=== PATIENT | female | born 1980 | race Caucasian/White ===

== ENCOUNTER 2022-06-26 13:58 | Outpatient (CLI) | payer BC, SELFPAY ==
[2022-06-26 22:28] LABS: Chloride* 100 mmol/L (96-114); Potassium* 4.7 mmol/L (3.6-5.1); Sodium* 134 mmol/L (135-149)
[2022-06-26 22:30] LABS: Creatinine Urine 15.6 mg/dL
[2022-06-26 22:31] LABS: Blood Urea Nitrogen* 9 mg/dL (5-24); Carbon Dioxide* 24 mmol/L (20-32); Cholesterol* 295 mg/dL (90-199); Creatinine* 0.5 mg/dL (0.5-1.5); Estimated Glomerular Filt Rate 122 ml/min; Glucose* 125 mg/dL (60-115); Triglycerides* 197 mg/dL (40-149)
[2022-06-26 22:32] LABS: Calcium* 9.8 mg/dL (8.4-10.6); HDL Cholesterol* 52 mg/dL (>=50); LDL Cholesterol Calculated 204 mg/dL (<100)
[2022-06-26 22:33] LABS: Microalbumin Creatinine Ratio 60 mg/g (0-30); Microalbumin Urine < 1 mg/dL
== END 2022-06-26 13:59 | disposition home or self-care (01) ==
PROVIDERS: PCP Physician Assistant Medical; Visit Provider Physician Assistant Medical
DX: E11.9 Type 2 diabetes mellitus without complications (principal); N18.1 Chronic kidney disease, stage 1; Z13.6 Encounter for screening for cardiovascular disorders; Z13.29 Encounter for screening for other suspected endocrine disorder
CPT/HCPCS: 80048; 80061; 82043; 82570; 84443

== ENCOUNTER 2022-10-06 13:26 | Emergency (ER) | payer BC, SELFPAY ==
[2022-10-06 13:36] VITALS: BP 138/78; PULSE 90; RESP 18; TEMP 36.7; O2SAT 100; BMI 32.0
== END 2022-10-06 16:17 | disposition left against medical advice (07) ==
LOC: ED 16:14
PROVIDERS: PCP Physician Assistant Medical
DX: Z53.21 Procedure and treatment not carried out due to patient leaving prior to being seen by health care provider (principal)

== ENCOUNTER 2022-10-27 12:03 | Outpatient (CLI) | payer BC, SELFPAY | END 2022-10-27 12:04 | disposition home or self-care (01) | PROVIDERS: PCP Physician Assistant Medical; Visit Provider Physician Assistant Medical | DX: E78.5 Hyperlipidemia, unspecified (principal); E11.9 Type 2 diabetes mellitus without complications; N18.1 Chronic kidney disease, stage 1 | CPT/HCPCS: 82043; 82570; 82607; 82728 ==

== ENCOUNTER 2023-03-26 15:31 | Outpatient (CLI) | payer BC, SELFPAY | END 2023-03-26 15:32 | disposition home or self-care (01) | LOC: LKVREF 15:32 | PROVIDERS: PCP Physician Assistant Medical; Visit Provider Physician Assistant Medical | DX: E11.9 Type 2 diabetes mellitus without complications (principal); N18.1 Chronic kidney disease, stage 1 | CPT/HCPCS: 82043; 82570 ==

== ENCOUNTER 2023-04-21 15:30 | Outpatient (RCR) | payer OTHER, BC, SELFPAY ==
--- NOTE | 2022-10-21 12:44 | PT.OPE ---
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 All I know is I stepped out of my work vehicle and then I was on my back and my head the step on the vehicle was on the back of her head/neck. Pt is not sure if she loss consciousness. Pt had very little symptoms initially. Within 30 minutes she started having light sensitivity, dizziness, head pressure/pain on R, and she also reports that she grabbed a snack from a gas station and this made her extremely nauseous. Pain in her neck and shoulders gradually progressed and made her feel sick to her stomach. Pt notes that sunlight seems to bother her more than artificial lights. Pt is still having light sensitivity. Pt feels like her symptoms are getting worse. She has severe ADD/ADHD and it is hard for her to sit still. Has 3 kids at home. I am doing things that I'm not supposed to be doing ( cooking, cleaning). Pt also complains of memory issues since her injury and reports that her family members have been noticing this and are concerned. 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 - [employer] Preferred Name Concepción Precautions Therapy Limitations/Systems Review Not Limited Objective Other/Pertinent Objective Cervical ROM Extension - 44 *nausea, pain at front of R cervical spine Flexion - 36 *pain at base of skull, neck, sensation of nausea R/L Side Bend - 34/44 R/L Rotation - 77/65 R Shoulder ROM Flexion/Abduction/IR/ER - 170/ 170/T8/70 L Shoulder ROM Flexion/Abduction/IR/ER - 170/ 170/T6/70 Cervical Strength Extension - 5/5 MMT Flexion - 4/5 MMT * compensations noted R/L Side Bend - 5/5 MMT R/L Rotation - DNT Palpation: pt reports tenderness/pain with palpation to R>L suboccipitals, cervical paraspinals, scalenes , SCM, UT, and L>R levator; significant spasms noted in B SCM Posture: forward head, rounded shoulders, increased thoracic kyphosis in sitting Smooth pursuits, gaze stabilization: negative; pt does report increase in head pressure during Convergence: L eye drifts laterally approx 10cm from tip of nose. Assessment Assessment/Impression Pt is a 42 year old female who presents to OP PT clinic with complaints of neck and head pain following a fall while working. 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 She reports that on 10/06/22 ( approx 8:00am) she slipped and fell while getting out of her delivery vehicle. Is not sure if she hit her head or lost consciousness but reports that when she came to her head was resting on the step of her vehicle below the airport shuttle driver's side door. Pt had symptoms onset of dizziness, head and neck pain approx 30 minutes after the fall. She was able to be seen at ED in [place] around noon the same day. Imaging of the brain was completed and results were negative for structural damage . Pt has since had fluctuation in her symptoms with overall worsening of symptoms since the day of her injury. She continues to have sensitivity to light (natural seems to be worse than artificial), headaches, neck and upper back pain. She does have occasional dizziness but this does not seem to be too bothersome to her. Testing reveals deficits in her cervical ROM and strength. She also presents with spasms and muscle tension in the cervical spine that is consistent with whiplash injuries. Today we discussed the importance of activity modification (primarily reduction) as well as proper sleep hygiene including use of pillows and sleep volume. The nature of the pts condition was explained and all questions were answered to the pts satisfaction. Skilled PT services are medically necessary to address deficits and return patient to highest level of function. Recommend physical therapy sessions 2/ week for 12 weeks. Pt agrees with this plan. Printout of HEP was given for I completion and pt gives verbal understanding of each exercise . Primary Functional Limitations Lifting, reaching, cognitive tasks Plan of Care Rehabilitation Potential Good Physical Therapy Goals STG - To be completed in 2-3 weeks: 1. Pt will demonstrate improved cervical strength to 5/5 MMT in all directions to provide greater support to cervical spine and head. 2. Pt will report reduction in neck pain by factor of 2 so that they may roll over in bed without waking due to pain. 3. Pt will report reduction in headache intensity by factor of 2 so that they may remain functional at home when headaches do occur. LTG - To be completed in 8 weeks: 1. Pt to be I with HEP so that they may I manage progression of symptoms. 2. Pt will demo full and pain free cervical rotation ROM and lateral flexion ROM so that they may look over shoulder while driving to watch for traffic while working. 3. Pt will report absence of neck pain with all activities so that they may return to participating in recreational activities with their friends and family. 4. Pt will report absence of headache for 7 consecutive days so that she may work with mental clarity. 5. Pt will report ability to sleep throughout the night without waking due to pain so that they may wake well rested with reduced mental fatigue during working hours. Treatment Plan/Direct Interventions Electrical Stimulation,Heat, Ice/Cold/Vasopneumatic,Joint Mobilization,Manual Therapy, Neuromuscular Re-ed,Self-Care/ Home Management,Therapeutic Activities,Therapeutic Exercises Frequency/Duration 2/week for 8 weeks Patient Will Be Discharged From Therapy Completion of LTG(s),Skills Plateau,Independent w/HEP, Independently Progressing Evaluation Billing Untimed Code Treatment Minutes 40 PT Eval No Charge No Complexity Low Certification Information Initial Certification Date 10/21/22 Ending Certification Date 12/26/22 Provider Signature Shows Agreement With POC & Medical Necessity Physician Signature & Date Requested Please Sign/Date Here Physician Comment/Change : Physician NPI Number #
== END 2023-08-19 23:59 | disposition home or self-care (01) ==
PROVIDERS: PCP Physician Assistant Medical; Visit Provider Physician Assistant Medical
DX: F07.81 Postconcussional syndrome (principal); M54.2 Cervicalgia; M54.9 Dorsalgia, unspecified; G44.86 Cervicogenic headache; M62.838 Other muscle spasm; Z51.89 Encounter for other specified aftercare
CPT/HCPCS: 97032; 97110; 97112; 97140; 97161; 97530

== ENCOUNTER 2023-07-06 09:24 | Outpatient (CLI) | payer BC, SELFPAY | END 2023-07-06 09:25 | disposition home or self-care (01) | PROVIDERS: PCP Physician Assistant Medical; Visit Provider Physician Assistant Medical | DX: E78.2 Mixed hyperlipidemia (principal); E11.9 Type 2 diabetes mellitus without complications | CPT/HCPCS: 80061; 82607 ==

== ENCOUNTER 2023-07-06 13:15 | Outpatient (RCR) | payer OTHER, BC, SELFPAY ==
--- NOTE | 2023-06-05 18:34 | OT.OPGNE ---
OT Outpatient General/Neuro Eval OT Outpatient General/Neuro Eval Start: 06/05/23 17:17 Freq: Status: Active Protocol: Document 06/05/23 17:17 LCN (Rec: 06/05/23 18:15 LCN [id number]) E-signed By Hilary Solomon, OTR/L, CLT OT Outpatient Evaluation Details Type Type Eval Complexity Low Insurance Information Insurance Information Insurance Information Workman's Comp Insurance Information Comments [facility] Letitia Ruiz MD-- Adarsh Angel, of [facility] PCP Carmen Johnson Outpatient History/Precautions Medical/Functional History Medical History Reviewed Yes: limited to PT, Alex notes Prior Level of Function/Mobility Concepción is used to being being very energetic, hopping quickly between home repair, cooking and running her family household at a large level. Since her fall while on her [employer] work truck, she has been limited to 15-20 minutes of cooking tasks, walking outdoors for 30 minutes at a time and is not able to work yet. 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 Starting taking Amitriptyline recently per Neuroscience to help with sleep, but it actually is making her head pressure and falling asleep sx worse. Sleeps intermittently some times taking until 3am to fall asleep, after laying down at 10 pm. Sleeping in until 10- 11 am and is waking up feeling very agitated. Prior Medical History Prior Medical History Has seen physical therapy Gerardo Kenney with great help at our [place] location ( help her get started with some vision/balance exercises, balance and tolerating positional changes, managing headaches, cervical pressure and lumbar pain, is on hold after 20 visits as of 04/21/23. Pt started her healing journey with seeing Neuro- ophthalmology at [facility] in [place] to get going with prism glasses, light filter glasses and readers. Then started with [facility] 10/21/22. Also working closely with Neuroscience clinic in [place] and returns there in mid June. Was recently told she should b not be driving as she is having continued visual disturbances/ convergence insuffiency, VOR stabilizing issues when bending and is hoping to have OT pre-driving screeening completed to help with return to driving. 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 The symptoms initially were not that bad, but in 30 minutes later started having photophobia, dizziness, R sided head pressure/pain and nausea. She has worked hard to increase her walking outside with her dog, which does help her feel more clear. 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 She is needing family help for doing laundry ( bending to reaching has vertigo issues, nausea) and cognitive tasks like paying bills will increase her head pressure. She is doing her grocery shopping online with delivery; 20 yr old daughter is helping with paying all bills, interpreting mail. Pt relies on her QRC to take notes inside of detailed medical visits for her. Pt can not handle answering series of questions rapidly and will lose her word/concept finding to answer cohesively, then gets agitated and anxious. and shuts down. She tried to make tamales with family group and it took her 3 days to recover, similar experience after a family wedding at the [employer] one month ago. It feels like any large family task she tries sets her back worse and she is very discouraged. Feels most help from walking her dog, cooking with family and listening to music. Pain Assessment Pain R subiccital , temporal pressure, Pain Description Tightness,Pressure,Throbbing, Pinching,Pulling,With Movement Pain Description Other intractible Balance Assessment Comments Balance Comments On Post Concussion Brain Symptom Scale (where 22 symptom areas, 132 is maximal score, where zero is high QOL) -- Today, Concepción scores 85/132 with 20/22 symptoms.?6/6 head pressure.?4/6 with falling asleep, staying asleep, 6/6 with light, 5/6 vision blurring problems and 2/6 sound sensitivity.?4/6 difficulty concentrating, remembering, fatigue, drowsiness and irritability.? ? Home Maintenance Assessment Home Management Meal Preparation Ability Moderate Assistance Cleaning Ability Moderate Assistance Shopping Ability Moderate Assistance Vision/Hearing Vision Tracking WNL Saccades BNL Near Point of Convergence BNL Vision Changes Light Sensitivity,Diplopia Vision Changes Comments Pt using her prism glasses, light filter glasses ( smoke/ blue, for outdoors) and reading magnifiers per [facility]. Does not have light filter glasses for managing computer glare or night lighting changes while driving /being a passenger. (issued resources to get these glasses and Loop ear plugs at low cost via [employer]. OTR recommends pt to use Loop ear plugs for cancelling highest and lowest portion of sound to tolerate busy environments better) Hearing Hearing Phonophobia/Hearing Hypersensitivity Cognitive Assessments Performed Comments Cognitive Assessments Performed Comments MOCA and pre-driving screening w visual scanning, timed problem solving and other tasks to be performed to support pt's safe return to driving. Assessment Assessment Assessment With Concepción's high level of symptoms related to her concussion ( light/sound sensitivity, difficulty with fatigue/pacing, increased processing time needed for problem solving/sequencing, difficulty w tolerating reading, busy environments and cognitive tasks that will increase her head pressure symptoms, Concepción in an excellent candidate for skilled OT to address these areas. Occupational Therapy Treatment Plan - OP Potential Rehabilitation Potential Excellent Set Goals Goals Set with Patient Yes Goals Goals In 12 weeks, Concepción will demonstrate-- 1) effective use of 3-5 adaptive strategies, tools, self management strategies and environmental modifications to manage post concussion with improved mental fog, sensory and cognitive processing. ? 2) improved activity tolerance for reading, grocery shopping to 45 minutes with head pressure sx < 3/10 for and post task recovery?to 30-45 minutes. ? 3)decreased mental effort to 2 /10 with screening of MOCA/ SDMT and with moderately complex money management and multi step cooking tasks for 30-45 minutes at time, with head pressure sx below 3/6, with recovery time at 30-45 minutes. Target Date 09/04/23 Progress set Treatment Plan Treatment Plan Evaluation,Manual Therapy, Therapeutic Exercise, Therapeutic Activities,Self- Care/Home Management,Education Expected Frequency 1x Week Expected Duration 12 weeks Expected Duration Comments Scheduling 1x/week x 8weeks to start, but requesting 12 visits. Certification Certification I Certify That: Therapy Services Provided, Therapy Plan Established, Therapy Plan Reviewed
== END 2023-11-03 23:59 | disposition home or self-care (01) ==
PROVIDERS: PCP Physician Assistant Medical
DX: S06.9XAD Unspecified intracranial injury with loss of consciousness status unknown, subsequent encounter (principal); Z51.89 Encounter for other specified aftercare
CPT/HCPCS: 97165; 97530; 97535

== ENCOUNTER 2023-07-30 17:18 | Emergency (ER) | payer BC, SELFPAY ==
[2023-07-30] VITALS (11 sets, daily range): BP systolic 102–116; BP diastolic 66–90; PULSE 79–121; RESP 16; TEMP 36.8; O2SAT 92–99; BMI 33.1
--- NOTE | 2023-07-30 17:51 | CRLHL7_ITS ---
For Patients: As a result of the Cures Act, medical imaging exams and procedure reports are released immediately into your electronic medical record. You may view this report before your referring provider. If you have questions, please contact your health care provider. INDICATION: Chest pressure TECHNIQUE: Chest radiograph 2 views COMPARISON: 12/30/2020 FINDINGS: The sensitivity and specificity of the exam are moderately limited by the patient`s body habitus. Mediastinum: The mediastinum is normal in appearance. The heart silhouette is normal in size and morphology. Lung: Both lungs are unremarkable in appearance. No sign of pleural effusion seen. No pneumothorax is identified. Bone and Soft tissue: Unremarkable for age. IMPRESSION: 1. No acute cardiopulmonary disease is seen. Dictated by: Eddie Reyes MD @ 07/30/2023 18:20:59 (Electronically Signed)
--- NOTE | 2023-07-30 17:54 | CRLHL7_ITS ---
For Patients: As a result of the Century Cures Act, medical imaging exams and procedure reports are released immediately into your electronic medical record. You may view this report before your referring provider. If you have questions, please contact your health care provider. INDICATION: Right upper quadrant pain. COMPARISON: CT of the abdomen pelvis 05/17/2020. TECHNIQUE: Real time chaudhry scale imaging and color Doppler analysis was performed of the right upper quadrant. FINDINGS: Liver: The liver is normal in size measuring 14.5 cm in length. Normal echogenicity. No focal liver lesions identified. Gallbladder: No stones or sludge. No wall thickening or pericholecystic fluid. Negative sonographic Denis sign. Bile ducts: The common bile duct measures 4 mm in diameter. Pancreas: Visualized portions are unremarkable. Right kidney: The right kidney measures 11.0 cm in length. No hydronephrosis. Vascular: Normal caliber proximal abdominal aorta. The main portal vein appears patent. IMPRESSION: Unremarkable exam. Dictated by Juliana Conde MD @ 07/30/2023 6:35:43 PM (Electronically Signed)
[2023-07-30 18:07] LABS: Appearance Urine Clear (Clear); Bilirubin Urine Negative (Negative); Blood Urine Trace-lysed (Negative); Color Urine Yellow (Yellow); Glucose Urine Negative (Negative); Ketones Urine Negative (Negative); Leukocyte Esterase Urine Negative (Negative); Nitrite Urine Negative (Negative); Protein Urine Negative (Negative); Specific Gravity Urine <= 1.005 (1.000-1.030); Urobilinogen Urine 0.2 (0.2-1.0); pH Urine 5.5 (5.0-8.5)
[2023-07-30] MEDS: KETOROLAC 15 MG/ML inj IVP (18:11)
[2023-07-30] MEDS: ONDANSETRON 2 MG/ML inj 4 MG IVP (18:11)
--- NOTE | 2023-07-30 18:11 | ED_ITS ---
HPI - Abdominal Pain General Date Seen: 07/30/23 Chief Complaint: Abdominal Pain Stated Complaint: R side pain, sore throat Time Seen by Provider: 07/30/23 17:40 Source: patient Mode of arrival: ambulatory Limitations: no limitations History of Present Illness HPI narrative: Patient is a 42-year-old female with a history type 2 diabetes, stage 1 chronic kidney disease presenting to the emergency department for abdominal pain. She says symptoms have been going on for the past week. Start on a left abdominal region are now in the right upper quadrant. Denies ever having symptoms like this before. States she has had kidney stones before but they felt nothing like this. She says is more of a dull pain. She has also been having chest pressure and denies shortness of breath. Denies fevers, diarrhea, constipation, headache, vision changes. Does states she has been having chills and full body aches. Is not aware of any sick contacts. Has had no previous abdominal surgeries. Related Data Home Medications Medication Instructions Recorded Confirmed amitriptyline 10 mg tablet 10 mg PO QPM 06/08/23 07/30/23 Previous Rx's Medication Instructions Recorded nicotine 14 mg/24 hr daily 1 patch transdermal Q24H #14 ea 03/26/23 transdermal patch nicotine 21 mg/24 hr daily 1 patch transdermal Q24H #28 ea 03/26/23 transdermal patch (Nicoderm CQ) aspirin 81 mg chewable tablet 81 mg PO QDAY #90 tabs 07/06/23 (Aspirin Childrens) metformin 500 mg tablet,extended 2,000 mg (4 x 500 mg) PO DAILY 07/06/23 release 24 hr #360 tabs semaglutide 1 mg/dose (4 mg/3 mL) 1 mg (0.75 mL) subcut QWEEK #3 mL 07/06/23 subcutaneous pen injector (Ozempic) rosuvastatin 40 mg tablet 40 mg PO QDAY #90 tabs 07/08/23 flash glucose scanning reader #1 ea 07/23/23 (FreeStyle Adrianna 2 [place]) flash glucose sensor (FreeStyle #1 ea 07/23/23 Adrianna 2 Sensor kit) blood sugar diagnostic (Contour #100 ea 07/27/23 Next Test Strips) Allergies Allergy/AdvReac Type Severity Reaction Status Date / Time bee venom protein (honey bee) Allergy Severe swelling Verified 07/30/23 16:33 acetaminophen Allergy Intermediate Rash Verified 07/30/23 16:33 dulaglutide [From Trulicity] Allergy Intermediate Difficulty Verified 07/30/23 16:33 Breathing gadodiamide Allergy Intermediate Hives Verified 07/30/23 16:33 hydrocodone Allergy Intermediate itchy face Verified 07/30/23 16:33 penicillin V Allergy Intermediate Swelling Verified 07/30/23 16:33 of the Eye tramadol Allergy Mild itch Verified 07/30/23 16:33 Contrast dye Allergy Intermediate Hives Uncoded 07/30/23 16:33 Coconut Fatty Acids Allergy Unknown Uncoded 07/30/23 16:33 Review of Systems Status of ROS Reports: 10 or more systems reviewed and unremarkable except as noted in History and below PFSH PFSH Medical History Right upper quadrant abdominal pain ?R10.11 - Right upper quadrant pain (ICD-10) History of anaphylactic shock (10/25/13) ?Z87.892 - Personal history of anaphylaxis (ICD-10) Exposure to severe acute respiratory syndrome coronavirus 2 (SARS-CoV-2) ?Z20.822 - Contact with and (suspected) exposure to COVID-19 (ICD-10) Surgical History Status post right foot surgery ?Z98.890 - Other specified postprocedural states (ICD-10) History of tubal ligation (04/05/13) ?Z98.51 - Tubal ligation status (ICD-10) History of nasal septoplasty (04/05/13) ?Z98.890 - Other specified postprocedural states (ICD-10) History of hysterectomy ?Z90.710 - Acquired absence of both cervix and uterus (ICD-10) Family History Family/Other Coronary artery disease Stroke Diabetes High blood pressure Maternal Grandmother Ovarian cancer Paternal Grandmother Ovarian cancer Social History Narrative: does not drink alcohol, does not use illicit drugs, smoker 0.5 packs per day Smoking Status: Current every day smoker How often do you have a drink containing alcohol: never How often do you have six or more drinks on one occasion: Never AUDIT-C Alcohol total score: 0 Non-prescribed substance use: denies use Exam Narrative: Exam Narrative: Const: Well-nourished, Well-developed, in mild distress Eyes: PERRL, no conjunctival injection, and symmetrical lids HENT: Atraumatic external nose and ears. Moist mucous membranes. Neck: Symmetric, trachea midline, No thyromegaly. CVS: RRR, No murmurs or gallops. Peripheral pulses 2+ and equal in all extremities RESP: Unlabored respiratory effort. Clear to auscultation bilaterally. GI: Right upper quadrant tenderness, Nondistended, No rebound or guarding. MSK:Extremities w/o deformity, Normal Active ROM Skin: Warm, Dry. No rashes or lesions. Neuro: Normal Muscle tone, No focal neurological deficits. Psych: Awake, Alert, & Oriented x3. Appropriate mood and affect. Const: Vital Signs, click to edit/add: Vital Signs - 24 hr 07/30/23 17:33 07/30/23 18:29 07/30/23 18:30 Temperature 98.2 F Pulse Rate 99 97 Pulse Rate [Pulse Oximeter] 121 H Respiratory Rate 16 Blood Pressure Blood Pressure [Ri ght Upper Arm] 116/75 Pulse Oximetry 98 95 92 Oxygen Delivery Me thod Room Air 07/30/23 18:31 07/30/23 18:32 07/30/23 18:45 Temperature Pulse Rate 98 97 91 Pulse Rate [Pulse Oximeter] Respiratory Rate Blood Pressure 108/90 H Blood Pressure [Ri ght Upper Arm] Pulse Oximetry 94 94 94 Oxygen Delivery Me thod 07/30/23 19:00 07/30/23 19:01 07/30/23 19:15 Temperature Pulse Rate 82 85 88 Pulse Rate [Pulse Oximeter] Respiratory Rate Blood Pressure 102/69 Blood Pressure [Ri ght Upper Arm] Pulse Oximetry 99 96 96 Oxygen Delivery Me thod 07/30/23 19:30 07/30/23 19:31 Temperature Pulse Rate 79 84 Pulse Rate [Pulse Oximeter] Respiratory Rate Blood Pressure 103/66 Blood Pressure [Ri ght Upper Arm] Pulse Oximetry 96 98 Oxygen Delivery Me thod Course Vital Signs Vital signs: Initial Vital Signs Temperature 98.2 F 07/30/23 17:33 Temperature Source Oral 07/30/23 17:33 Pulse Rate 121 H 07/30/23 17:33 Pulse Rhythm Regular 07/30/23 17:33 Respiratory Rate 16 07/30/23 17:33 Blood Pressure 116/75 07/30/23 17:33 Blood Pressure Mean 88 07/30/23 17:33 Blood Pressure Position Sitting 07/30/23 17:33 Pulse Oximetry 98 07/30/23 17:33 Oxygen Delivery Method Room Air 07/30/23 17:33 Vital Signs Temperature 98.2 F 07/30/23 17:33 Pulse Rate 121 H 07/30/23 17:33 Respiratory Rate 16 07/30/23 17:33 Blood Pressure 116/75 07/30/23 17:33 Pulse Oximetry 98 07/30/23 17:33 Oxygen Delivery Method Room Air 07/30/23 17:33 Temperature 98.2 F 07/30/23 17:33 Pulse Rate 84 07/30/23 19:31 Respiratory Rate 16 07/30/23 17:33 Blood Pressure 103/66 07/30/23 19:31 Pulse Oximetry 98 07/30/23 19:31 Oxygen Delivery Method Room Air 07/30/23 17:33 Medications Administered Medications: Generic Name Dose Route Start Last Admin Trade Name Freq PRN Reason Stop Dose Admin Lactated Ringer's 1,000 mls @ 1,000 mls/hr 07/30/23 18:10 07/30/23 19:33 Lactated Ringers 1000 Ml IV 07/30/23 19:09 Infused .Q1H ONE Infusion Discontinued Medications Generic Name Dose Route Start Last Admin Trade Name Freq PRN Reason Stop Dose Admin Ketorolac Tromethamine 15 mg 07/30/23 17:51 07/30/23 18:11 Ketorolac 15 Mg/Ml Inj IVP 07/30/23 17:52 15 mg ONCE ONE Administration Ondansetron HCl 4 mg 07/30/23 17:51 07/30/23 18:11 Ondansetron 2 Mg/Ml Inj IVP 07/30/23 17:52 4 mg ONCE ONE Administration MDM - Abdominal Pain MDM Narrative Medical decision making narrative: Patient is a 42-year-old female presenting for abdominal pain. Pain is in the right upper quadrant best at [place] all her abdomen. This concern for cholecystitis. She was sent here by Urgent Care for concern of cholecystitis. She was initially tachycardic when she arrives of fluids were given and we did order septic workup in case the white blood cell count came back elevated. Lactic acid was 1.7. Symptoms could also be a pancreatitis, gastroenteritis. Since unlikely to be kidney stone if it is more red dull pain has states this feels nothing like her previous kidney stones. Right upper quadrant ultrasound was ordered. Symptoms could also be viral related and COVID/flu/RSV ordered. Her chest pressure could be all from a viral syndrome but cardiac workup ordered including troponin, chest x-ray and EKG. Lab work returned showing no concerning abnormalities. Her heart rate improved to the high 80s to low 90s. She received Zofran for nausea and Toradol for pain. Ultrasound showed no concerning abnormalities. Chest x-ray showed no concerning abnormalities. EKG showed no concerning abnormalities. I do not believe we need to repeat a troponin as his symptoms have been going on for over week and she is COVID positive this is most likely the cause of her symptoms. Her pain is feeling much better and while initially was concerning the CT scan of abdomen pelvis speaking to her were both agree that this is probably not needed and that she can be discharged home. She is agreeable to this plan. Lab Data Labs: Lab Results 07/30/23 07/30/23 07/30/23 Range/Units 17:42 17:46 18:15 WBC 4.96 (4.50-11.00) K/uL RBC 5.00 (4.00-5.20) m/uL Hgb 15.1 (12.0-16.0) gm/dL Hct 45.1 (33.0-51.0) % MCV 90 (80-100) fL MCH 30 (26-34) pg MCHC 34 (32-36) gm/dL RDW Coeff of Bernard 13.1 (11.5-15.5) % Plt Count 219 (140-440) K/uL Neut % (Auto) 62.9 (42.0-72.0) % Lymph % (Auto) 25.4 (20-44) % Harlan % (Auto) 11.1 H (0.0-11.0) % Eos % (Auto) 0.0 (0.0-7.0) % Baso % (Auto) 0.2 (0.0-3.0) % Neut # (Auto) 3.12 (1.7-7.0) K/uL Lymph # (Auto) 1.26 (0.90-2.90) K/uL Harlan # (Auto) 0.60 (0.00-0.90) K/UL Eos # (Auto) 0.00 (0.00-0.50) K/uL Baso # (Auto) 0.01 (0.00-0.30) K/uL Abs Immat Gran (auto) 0.02 (0.00-0.30) K/uL Imm/Tot Granulo (auto) 0.4 % Sodium 135 (135-149) mmol/L Potassium 4.0 (3.6-5.1) mmol/L Chloride 100 (96-114) mmol/L Carbon Dioxide 27 (20-32) mmol/L Anion Gap 8 (7-15) mEq/L BUN 6 (5-24) mg/dL Creatinine 0.6 (0.5-1.5) mg/dL Estimated Creat Clear 97.59 Estimated GFR 116 ml/min Glucose 163 H (60-115) mg/dL Lactate (0.5-1.9) mmol/L Calcium 9.3 (8.4-10.6) mg/dL Total Bilirubin 0.3 (0.1-1.5) mg/dL AST 22 (12-35) U/L ALT 15 (4-35) U/L Alkaline Phosphatase 63 (40-150) U/L Troponin I < 0.01 L (0.01-0.04) ng/mL Total Protein 7.9 (6.0-8.3) g/dL Albumin 4.7 (3.3-5.0) g/dL Lipase 171 (23-300) U/L Urine Color Yellow (Yellow) Urine Appearance Clear (Clear) Urine pH 5.5 (5.0-8.5) Ur Specific [place] <= 1.005 (1.000-1.030) Urine Protein Negative (Negative) Urine Glucose (UA) Negative (Negative) Urine Ketones Negative (Negative) Urine Blood Trace-lysed A (Negative) Urine Nitrite Negative (Negative) Urine Bilirubin Negative (Negative) Urine Urobilinogen 0.2 (0.2-1.0) Ur Leukocyte Esterase Negative (Negative) Urine RBC 0-2 (0-2) Urine WBC 0-2 (0-5) Ur Squamous Epith Cells Few (None-Few) Urine Bacteria Few A (None) SARS-CoV-2 (PCR) POSITIVE SARS-CoV-2 A (Negative) Influenza Type A (PCR) Negative PCR FLU A (Negative) Influenza Type B (PCR) Negative PCR FLU B (Negative) RSV (PCR) Negative PCR RSV (Negative) Group A Strep DNA NOT DETECTED (Not Detectd) 07/30/23 Range/Units 18:16 WBC (4.50-11.00) K/uL RBC (4.00-5.20) m/uL Hgb (12.0-16.0) gm/dL Hct (33.0-51.0) % MCV (80-100) fL MCH (26-34) pg MCHC (32-36) gm/dL RDW Coeff of Bernard (11.5-15.5) % Plt Count (140-440) K/uL Neut % (Auto) (42.0-72.0) % Lymph % (Auto) (20-44) % Harlan % (Auto) (0.0-11.0) % Eos % (Auto) (0.0-7.0) % Baso % (Auto) (0.0-3.0) % Neut # (Auto) (1.7-7.0) K/uL Lymph # (Auto) (0.90-2.90) K/uL Harlan # (Auto) (0.00-0.90) K/UL Eos # (Auto) (0.00-0.50) K/uL Baso # (Auto) (0.00-0.30) K/uL Abs Immat Gran (auto) (0.00-0.30) K/uL Imm/Tot Granulo (auto) % Sodium (135-149) mmol/L Potassium (3.6-5.1) mmol/L Chloride (96-114) mmol/L Carbon Dioxide (20-32) mmol/L Anion Gap (7-15) mEq/L BUN (5-24) mg/dL Creatinine (0.5-1.5) mg/dL Estimated Creat Clear Estimated GFR ml/min Glucose (60-115) mg/dL Lactate 1.7 (0.5-1.9) mmol/L Calcium (8.4-10.6) mg/dL Total Bilirubin (0.1-1.5) mg/dL AST (12-35) U/L ALT (4-35) U/L Alkaline Phosphatase (40-150) U/L Troponin I (0.01-0.04) ng/mL Total Protein (6.0-8.3) g/dL Albumin (3.3-5.0) g/dL Lipase (23-300) U/L Urine Color (Yellow) Urine Appearance (Clear) Urine pH (5.0-8.5) Ur Specific [place] (1.000-1.030) Urine Protein (Negative) Urine Glucose (UA) (Negative) Urine Ketones (Negative) Urine Blood (Negative) Urine Nitrite (Negative) Urine Bilirubin (Negative) Urine Urobilinogen (0.2-1.0) Ur Leukocyte Esterase (Negative) Urine RBC (0-2) Urine WBC (0-5) Ur Squamous Epith Cells (None-Few) Urine Bacteria (None) SARS-CoV-2 (PCR) (Negative) Influenza Type A (PCR) (Negative) Influenza Type B (PCR) (Negative) RSV (PCR) (Negative) Group A Strep DNA (Not Detectd) Imaging Data Abdominal ultrasound: Radiologist's impression: Unremarkable exam. Dictated by Juliana Conde MD @ 07/30/2023 6:35:43 PM Chest x-ray: Radiologist's impression: 1. No acute cardiopulmonary disease is seen. Dictated by: Eddie Reyes MD @ 07/30/2023 18:20:59 ECG Data Attestation: I personally reviewed and interpreted this ECG as follows: Prior ECG tracings: not available for review Interpretation: Sinus tachycardia with a rate of 103 beats per minute, normal intervals, normal axis, no ST or T-wave abnormalities Discharge Plan Discharge Clinical Impression: COVID Patient Disposition: Home, Self-Care Condition: Improved Instructions: COVID-19 (Coronavirus Disease 2019) (ED) Additional Instructions: Take Tylenol ibuprofen for any fevers or pain you develop. Return to emergency department for new or worsening symptoms. Prescriptions: No Action nicotine 14 mg/24 hr patch 24 hour 1 patch transdermal Q24H Qty: 14 0RF Rx Instructions: start day 29. daily for 14 days; then reduce dosing to 7mg daily nicotine [Nicoderm CQ] 21 mg/24 hr patch 24 hour 1 patch transdermal Q24H Qty: 28 0RF Rx Instructions: daily for 28 days; then reduce dose to 14mg amitriptyline 10 mg tablet 10 mg PO QPM Ozempic 1 mg/dose (4 mg/3 mL) pen injector 1 mg subcut QWEEK Qty: 3 2RF Rx Instructions: new dosing 1mg once weekly metformin 500 mg tablet extended release 24 hr 2,000 mg PO DAILY Qty: 360 3RF aspirin [Aspirin Childrens] 81 mg tablet,chewable 81 mg PO QDAY Qty: 90 3RF Rx Instructions: One tablet daily for primary cardiovascular disease prevention rosuvastatin 40 mg tablet 40 mg PO QDAY Qty: 90 1RF Rx Instructions: new dosing once daily for cholesterol (DME) FreeStyle Adrianna 2 Sensor Kit See Rx Instructions .ROUTE .MEDSUPPLY Qty: 1 3RF Rx Instructions: continuous for diabetes (DME) FreeStyle Adrianna 2 [place] Misc See Rx Instructions .ROUTE .MEDSUPPLY Qty: 1 0RF Rx Instructions: As directed; daily for diabetes (DME) Contour Next Test Strips Strip See Rx Instructions .Route Qty: 100 3RF Rx Instructions: As directed Follow Up/Referrals: Maricel Johnson PA-C [Primary Care Provider] - Stand Alone Forms: [facility] Info Instructions
[2023-07-30] MEDS: LACTATED RINGERS 1000 ML 1,000 ML IV (18:33)
[2023-07-30 18:46] LABS: Chloride* 100 mmol/L (96-114)
[2023-07-30 18:47] LABS: Albumin* 4.7 g/dL (3.3-5.0); Sodium* 135 mmol/L (135-149)
[2023-07-30 18:47] LABS: Strep A DNA Probe* NOT DETECTED (Not Detectd)
[2023-07-30 18:47] LABS: Lactate* 1.7 mmol/L (0.5-1.9)
[2023-07-30 18:50] LABS: PCR FLU A Negative PCR FLU A (Negative); PCR FLU B Negative PCR FLU B (Negative); PCR RSV Negative PCR RSV (Negative)
[2023-07-30 18:50] LABS: Alkaline Phosphatase* 63 U/L (40-150); Anion Gap 8 mEq/L (7-15); Aspartate Amino Transferase* 22 U/L (12-35); Bilirubin Total* 0.3 mg/dL (0.1-1.5); Blood Urea Nitrogen* 6 mg/dL (5-24); Carbon Dioxide* 27 mmol/L (20-32); Creatinine* 0.6 mg/dL (0.5-1.5); Est. Creatinine Clearance* 97.59; Estimated Glomerular Filt Rate 116 ml/min; Glucose* 163 mg/dL (60-115); Lipase* 171 U/L (23-300); Total Protein* 7.9 g/dL (6.0-8.3)
[2023-07-30 18:51] LABS: Alanine Aminotransferase* 15 U/L (4-35); Basophils Absolute Auto 0.01 K/uL (0.00-0.30); Basophils Percent Auto 0.2 % (0.0-3.0); Calcium* 9.3 mg/dL (8.4-10.6); Hematocrit 45.1 % (33.0-51.0); Hemoglobin* 15.1 gm/dL (12.0-16.0); Immature Granulocytes Abs Auto 0.02 K/uL (0.00-0.30); Immature Granulocytes Pct Auto 0.4 %; Lymphocytes Absolute Auto 1.26 K/uL (0.90-2.90); Lymphocytes Percent Auto 25.4 % (20-44); Mean Corpuscular HGB Conc 34 gm/dL (32-36); Mean Corpuscular Hemoglobin 30 pg (26-34); Mean Corpuscular Volume 90 fL (80-100); Monocytes Percent Auto 11.1 % (0.0-11.0); Neutrophils Absolute Auto 3.12 K/uL (1.7-7.0); Neutrophils Percent Auto 62.9 % (42.0-72.0); Platelet Count* 219 K/uL (140-440); RDW Coefficient of Variation % 13.1 % (11.5-15.5); White Blood Count* 4.96 K/uL (4.50-11.00)
[2023-07-30 18:54] LABS: SARS PCR* POSITIVE SARS-CoV-2 (Negative)
[2023-07-30 18:56] LABS: Slide Review Reflex No
[2023-07-30 19:03] LABS: Troponin I* < 0.01 ng/mL (0.01-0.04)
[2023-07-30 19:36] LABS: Bacteria Urine Few; RBC Urine 0-2 (0-2); Squamous Epithelial Cell Urine Few (None-Few); WBC Urine 0-2 (0-5)
== END 2023-07-30 19:57 | disposition home or self-care (01) ==
PROVIDERS: Emergency Provider Student in an Organized Health Care Education/Training Program; PCP Physician Assistant Medical
DX: U07.1 COVID-19 (principal)
CPT/HCPCS: 36415; 71046; 76705; 80053; 81001; 83605; 83690; 84484; 85025; 87086; 87631; 87651; 93005; 95992; 96361; 96374; 96375; 99283; 99284; 99285; J1885; J2405; J7120

== ENCOUNTER 2023-08-24 16:07 | Outpatient (CLI) | payer BC, SELFPAY | END 2023-08-24 16:08 | disposition home or self-care (01) | LOC: NFLDREF 08-27 11:02 | PROVIDERS: PCP Physician Assistant Medical; Referring Provider Physician Assistant Medical; Visit Provider Physician Assistant | DX: R30.0 Dysuria (principal); N39.0 Urinary tract infection, site not specified; R31.9 Hematuria, unspecified | CPT/HCPCS: 87086; 87186 ==

== ENCOUNTER 2024-05-03 10:52 | Emergency (ER) | payer BC, SELFPAY ==
[2024-05-03 11:07] VITALS: BP 106/71; PULSE 103; RESP 18; TEMP 36.3; O2SAT 99; BMI 30.5
[2024-05-03 12:00] LABS: Appearance Urine Clear (Clear); Bilirubin Urine Negative (Negative); Blood Urine Negative (Negative); Color Urine Yellow (Yellow); Glucose Urine Negative (Negative); Ketones Urine 2+ (Negative); Leukocyte Esterase Urine Negative (Negative); Nitrite Urine Negative (Negative); Protein Urine Negative (Negative); Specific Gravity Urine <= 1.005 (1.000-1.030); Urobilinogen Urine 0.2 (0.2-1.0); pH Urine 5.5 (5.0-8.5)
--- NOTE | 2024-05-03 12:15 | ED.GENADULT ---
HPI - General Adult General Chief complaint: Abdominal Pain Stated complaint: Abdominal pain Time Seen by Provider: 05/03/24 12:15 History of Present Illness HPI narrative: mid low abd pain off and on x 4 days. no fevers, vomiting or diarrhea 43-year-old woman presenting to the emergency department with complaint of about 4 days now of mid abdominal pain waxing waning to some degree but generally present. Seems to be just above the umbilicus may be radiating little higher than that. She does note a history of diverticulitis but admits that that was in the left lower abdomen before. Says she would not necessarily be here but she started to feel some chills. Does not measured a fever. Does not been vomiting. No diarrhea and has been having normal stools otherwise regular pattern. History of hysterectomy without oophorectomy. Has had C-sections as well. No bowel procedures. She still has her gallbladder. Does have a history of some heartburn but this feels different. Did have an upper endoscopy and colonoscopy at the same time. Sounds as though the upper endoscopy may have been done to evaluate swallowing as she states. At this point whenever she goes to eat something she gets nearly immediately bloated. Worried about obstruction I think. Related Data Previous Rx's ?Medication ?Instructions ?Recorded nicotine 14 mg/24 hr daily 1 patch transdermal Q24H #14 ea 03/26/23 transdermal patch nicotine 21 mg/24 hr daily 1 patch transdermal Q24H #28 ea 03/26/23 transdermal patch (Nicoderm CQ) aspirin 81 mg chewable tablet 81 mg PO QDAY #90 tabs 07/06/23 (Aspirin Childrens) metformin 500 mg tablet,extended 2,000 mg (4 x 500 mg) PO DAILY 07/06/23 release 24 hr #360 tabs rosuvastatin 40 mg tablet 40 mg PO QDAY #90 tabs 07/08/23 blood sugar diagnostic (Contour #100 ea 07/27/23 Next Test Strips) semaglutide 1 mg/dose (4 mg/3 mL) 1 mg (0.75 mL) subcut QWEEK #9 mL 03/21/24 subcutaneous pen injector (Ozempic) omeprazole 40 mg capsule,delayed 40 mg PO DAILY #30 caps 05/03/24 release ondansetron 4 mg disintegrating 4 mg PO Q4-6H PRN nausea and 05/03/24 tablet vomiting #12 tabs Allergies Allergy/AdvReac Type Severity Reaction Status Date / Time bee venom protein (honey bee) Allergy Severe swelling Verified 04/18/24 12:12 acetaminophen Allergy Intermediate Rash Verified 04/18/24 12:12 dulaglutide [From Trulicity] Allergy Intermediate Difficulty Verified 04/18/24 12:12 Breathing gadodiamide Allergy Intermediate Hives Verified 04/18/24 12:12 hydrocodone Allergy Intermediate itchy face Verified 04/18/24 12:12 Iodinated Contrast Media Allergy Intermediate Hives Verified 04/18/24 12:12 penicillin V Allergy Intermediate Swelling Verified 04/18/24 12:12 of the Eye tramadol Allergy Mild itch Verified 04/18/24 12:12 Coconut Fatty Acids Allergy Unknown Uncoded 04/18/24 12:12 Review of Systems Status of ROS: Reports: 6 or more systems reviewed and unremarkable except as noted in History and below [facility] Diverticulitis ?K57.92 - Diverticulitis of intestine, part unspecified, without perforation or abscess without bleeding (ICD-10) COVID ?U07.1 - COVID-19 (ICD-10) Calculus of kidney ?N20.0 - Calculus of kidney (ICD-10) History of anaphylactic shock (10/25/13) ?Z87.892 - Personal history of anaphylaxis (ICD-10) Surgical History Status post right foot surgery ?Z98.890 - Other specified postprocedural states (ICD-10) History of tubal ligation (04/05/13) ?Z98.51 - Tubal ligation status (ICD-10) History of nasal septoplasty (04/05/13) ?Z98.890 - Other specified postprocedural states (ICD-10) History of hysterectomy ?Z90.710 - Acquired absence of both cervix and uterus (ICD-10) Family History Family/Other Coronary artery disease Stroke Diabetes High blood pressure Maternal Grandmother Ovarian cancer Paternal Grandmother Ovarian cancer Social History Narrative: does not drink alcohol, does not use illicit drugs, smoker 0.5 packs per day Smoking Status: Current every day smoker How often do you have a drink containing alcohol: never How often do you have six or more drinks on one occasion: Never AUDIT-C Alcohol total score: 0 Non-prescribed substance use: denies use Exam Narrative: Exam Narrative: Pleasant. NAD. Breathing easily. Lungs are clear. Heart is just tachycardic in a regular rhythm. Is well-perfused peripherally. No lower extremity edema. Abdomen is soft and mildly tender to palpation in the supraumbilical area just up into the epigastrium. Hypogastrium appears free of pain. Abdomen otherwise is soft and nontender. No masses appreciated. Oropharynx is unremarkable. Const: Vital Signs, click to edit/add: Vital Signs - 24 hr 05/03/24 11:07 05/03/24 13:00 05/03/24 15:00 Temperature 97.3 F L Pulse Rate [Right Pulse Oximeter] 103 H 88 80 Respiratory Rate 18 16 16 Blood Pressure [Ri ght Upper Arm] 106/71 128/90 H 123/88 Pulse Oximetry 99 100 100 Oxygen Delivery Me thod Room Air Room Air Room Air Documenting provider has reviewed patient's vital signs: yes Course Vital Signs Vital signs: Initial Vital Signs Temperature 97.3 F L 05/03/24 11:07 Temperature Source Temporal Artery Scan 05/03/24 11:07 Pulse Rate 103 H 05/03/24 11:07 Respiratory Rate 18 05/03/24 11:07 Blood Pressure 106/71 05/03/24 11:07 Blood Pressure Mean 82 05/03/24 11:07 Blood Pressure Position Sitting 05/03/24 11:07 Pulse Oximetry 99 05/03/24 11:07 Oxygen Delivery Method Room Air 05/03/24 11:07 Vital Signs Temperature 97.3 F L 05/03/24 11:07 Pulse Rate 103 H 05/03/24 11:07 Respiratory Rate 18 05/03/24 11:07 Blood Pressure 106/71 05/03/24 11:07 Pulse Oximetry 99 05/03/24 11:07 Oxygen Delivery Method Room Air 05/03/24 11:07 Temperature 97.3 F L 05/03/24 11:07 Pulse Rate 80 05/03/24 15:00 Respiratory Rate 16 05/03/24 15:00 Blood Pressure 123/88 05/03/24 15:00 Pulse Oximetry 100 05/03/24 15:00 Oxygen Delivery Method Room Air 05/03/24 15:00 Medications Administered Medications: Discontinued Medications Generic Name Dose Route Start Last Admin Trade Name Jaleelq PRN Reason Stop Dose Admin Sodium Chloride 1,000 mls @ 1,000 mls/hr 05/03/24 12:25 05/03/24 13:35 0.9 % Sodium Chloride 1000 Ml IV 05/03/24 13:24 0 mls/hr .Q1H ONE Infusion Lidocaine/Aluminum/Magnesium/Simeth 30 ml 05/03/24 14:40 05/03/24 14:59 Gi Cocktail (Visc Lido/Antacid) 30 Ml PO 05/03/24 14:41 30 ml ONCE ONE Administration Ondansetron HCl 4 mg 05/03/24 14:40 05/03/24 14:58 Ondansetron 2 Mg/Ml Inj IVP 05/03/24 14:41 4 mg ONCE ONE Administration Medical Decision Making MDM Narrative Medical decision making narrative: With duration of symptoms I think will need imaging to elucidate this further. I have requested CT of abdomen and pelvis. Differential includes mesenteric adenitis, gastritis, hernia, biliary disease, vascular disruption/dissection, low-lying pneumonia, pulmonary embolus? History complicated by allergy to contrast so will proceed with non contrasted abdominal scan. Labs are reassuring including normal D-dimer suggesting against dissection or pulmonary embolus. TECHNIQUE: Axial images were obtained from the diaphragm to the pubic symphysis. Reformats were obtained in the coronal and sagittal plane. IV Contrast: None Oral Contrast: None COMPARISON: Abdomen and pelvis CT 05/17/2020 FINDINGS: Lower chest: Unremarkable. Liver: Unremarkable. Normal in size and attenuation. No masses. Gallbladder and bile ducts: Unremarkable. No stones or inflammation. No biliary dilatation. Spleen: Unremarkable. Normal in size without mass. Pancreas: Unremarkable. No mass or inflammation. Adrenal glands: Unremarkable. No nodules. Kidneys: Nephrolithiasis without evidence of ureteral stone or hydronephrosis. Right renal scarring redemonstrated. Vasculature: Unremarkable. GI tract: The stomach is unremarkable. No dilated loops of large or small intestine. Colonic diverticulosis. Normal appendix. Pelvis: Right ovarian cyst measuring 3.3 centimeters with trace free fluid in the deep pelvis. Status post hysterectomy. Bones: Unremarkable for age. IMPRESSION: 1. Nephrolithiasis without evidence of ureteral stone or hydronephrosis. Right renal scarring redemonstrated. 2. Right ovarian cysts measuring 3.3 centimeters. 3. Colonic diverticulosis without CT evidence of diverticulitis. Zofran and GI cocktail were maybe a little helpful. Received L normal saline. Urinalysis with 2+ ketones so mildly malnourished/dehydrated. See patient discharge plan for further discussion/plan. Medical Records Medical records reviewed: Yes I reviewed the patient's medical records Lab Data Lab results reviewed: Yes I reviewed the patient's lab results Labs: Lab Results 05/03/24 05/03/24 Range/Units 11:53 12:38 WBC 10.00 (4.50-11.00) K/uL RBC 4.58 (4.00-5.20) m/uL Hgb 13.6 (12.0-16.0) gm/dL Hct 41.2 (33.0-51.0) % MCV 90 (80-100) fL MCH 30 (26-34) pg MCHC 33 (32-36) gm/dL RDW Coeff of Bernard 12.7 (11.5-15.5) % Plt Count 229 (140-440) K/uL Neut % (Auto) 77.2 H (42.0-72.0) % Lymph % (Auto) 17.5 L (20-44) % Gregory % (Auto) 4.9 (0.0-11.0) % Eos % (Auto) 0.2 (0.0-7.0) % Baso % (Auto) 0.1 (0.0-3.0) % Neut # (Auto) 7.70 H (1.7-7.0) K/uL Lymph # (Auto) 1.80 (0.90-2.90) K/uL Gregory # (Auto) 0.50 (0.00-0.90) K/UL Eos # (Auto) 0.02 (0.00-0.50) K/uL Baso # (Auto) 0.01 (0.00-0.30) K/uL Abs Immat Gran (auto) 0.01 (0.00-0.30) K/uL Imm/Tot Granulo (auto) 0.1 % D-Dimer Quant (PE/DVT) < 0.27 (0.00-0.50) ug/ml Sodium 137 (135-149) mmol/L Potassium 3.9 (3.6-5.1) mmol/L Chloride 105 (96-114) mmol/L Carbon Dioxide 23 (20-32) mmol/L Anion Gap 9 (7-15) mEq/L BUN 10 (5-24) mg/dL Creatinine 0.5 (0.5-1.5) mg/dL Estimated Creat Clear 115.93 Estimated GFR 120 ml/min Glucose 108 (60-115) mg/dL Calcium 9.3 (8.4-10.6) mg/dL Total Bilirubin 0.5 (0.1-1.5) mg/dL Direct Bilirubin 0.2 (0.0-0.5) mg/dL AST 17 (12-35) U/L ALT 12 (4-35) U/L Alkaline Phosphatase 59 (40-150) U/L C-Reactive Protein 0.5 (0.5-1.0) mg/dL Total Protein 6.9 (6.0-8.3) g/dL Albumin 4.3 (3.3-5.0) g/dL Lipase 104 (23-300) U/L Urine Color Yellow (Yellow) Urine Appearance Clear (Clear) Urine pH 5.5 (5.0-8.5) Ur Specific [place] <= 1.005 (1.000-1.030) Urine Protein Negative (Negative) Urine Glucose (UA) Negative (Negative) Urine Ketones 2+ A (Negative) Urine Blood Negative (Negative) Urine Nitrite Negative (Negative) Urine Bilirubin Negative (Negative) Urine Urobilinogen 0.2 (0.2-1.0) Ur Leukocyte Esterase Negative (Negative) Discharge Plan Discharge Clinical Impression: Upper abdominal pain Patient Disposition: Home, Self-Care Condition: Stable Instructions: Abdominal Pain (ED) Additional Instructions: Yes. 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 Focus on hydration. Prescribing a proton pump inhibitor (omeprazole) to reduce acid in your stomach. Recommending that you only take this for 2 weeks and then reassess. Could take something like famotidine in the meantime for more immediate relief of indigestion type symptoms if needed. Return for marked increase in persistent uncontrolled pain, associated fever, repeated vomiting. If you would like an antiemetic go ahead and fill the prescription for Zofran. Prescriptions: New omeprazole 40 mg capsule,delayed release(DR/EC) 40 mg PO DAILY Qty: 30 0RF ondansetron 4 mg tablet,disintegrating 4 mg PO Q4-6H PRN (Reason: nausea and vomiting) Qty: 12 0RF No Action nicotine 14 mg/24 hr patch 24 hour 1 patch transdermal Q24H Qty: 14 0RF Rx Instructions: start . daily for 14 days; then reduce dosing to 7mg daily nicotine [Nicoderm CQ] 21 mg/24 hr patch 24 hour 1 patch transdermal Q24H Qty: 28 0RF Rx Instructions: daily for 28 days; then reduce dose to 14mg metformin 500 mg tablet extended release 24 hr 2,000 mg PO DAILY Qty: 360 3RF aspirin [Aspirin Childrens] 81 mg tablet,chewable 81 mg PO QDAY Qty: 90 3RF Rx Instructions: One tablet daily for primary cardiovascular disease prevention rosuvastatin 40 mg tablet 40 mg PO QDAY Qty: 90 1RF Rx Instructions: new dosing once daily for cholesterol (DME) Contour Next Test Strips Strip See Rx Instructions .Route Qty: 100 3RF Rx Instructions: As directed Ozempic 1 mg/dose (4 mg/3 mL) pen injector 1 mg subcut QWEEK Qty: 9 1RF Rx Instructions: 1mg once weekly Follow Up/Referrals: Maricel Johnson PA-C [Primary Care Provider] - Stand Alone Forms: [facility] Info Instructions
--- NOTE | 2024-05-03 12:37 | CRLHL7_ITS ---
For Patients: As a result of the Century Cures Act, medical imaging exams and procedure reports are released immediately into your electronic medical record. You may view this report before your referring provider. If you have questions, please contact your health care provider. INDICATION: Umbilical and supraumbilical pain TECHNIQUE: Axial images were obtained from the diaphragm to the pubic symphysis. Reformats were obtained in the coronal and sagittal plane. IV Contrast: None Oral Contrast: None COMPARISON: Abdomen and pelvis CT 05/17/2020 FINDINGS: Lower chest: Unremarkable. Liver: Unremarkable. Normal in size and attenuation. No masses. Gallbladder and bile ducts: Unremarkable. No stones or inflammation. No biliary dilatation. Spleen: Unremarkable. Normal in size without mass. Pancreas: Unremarkable. No mass or inflammation. Adrenal glands: Unremarkable. No nodules. Kidneys: Nephrolithiasis without evidence of ureteral stone or hydronephrosis. Right renal scarring redemonstrated. Vasculature: Unremarkable. GI tract: The stomach is unremarkable. No dilated loops of large or small intestine. Colonic diverticulosis. Normal appendix. Pelvis: Right ovarian cyst measuring 3.3 centimeters with trace free fluid in the deep pelvis. Status post hysterectomy. Bones: Unremarkable for age. IMPRESSION: 1. Nephrolithiasis without evidence of ureteral stone or hydronephrosis. Right renal scarring redemonstrated. 2. Right ovarian cysts measuring 3.3 centimeters. 3. Colonic diverticulosis without CT evidence of diverticulitis. Please note that all CT scans at this facility use dose modulation, iterative reconstruction, and/or weight-based dosing when appropriate to reduce radiation dose to as low as reasonably achievable. Dictated by Kilo Kerr MD @ 05/03/2024 1:46:56 PM (Electronically Signed)
[2024-05-03] MEDS: 0.9 % SODIUM CHLORIDE 1000 ml 1,000 ML IV (12:47)
[2024-05-03 12:58] LABS: Basophils Absolute Auto 0.01 K/uL (0.00-0.30); Basophils Percent Auto 0.1 % (0.0-3.0); Eosinophils Absolute Auto 0.02 K/uL (0.00-0.50); Eosinophils Percent Auto 0.2 % (0.0-7.0); Hematocrit 41.2 % (33.0-51.0); Hemoglobin* 13.6 gm/dL (12.0-16.0); Immature Granulocytes Abs Auto 0.01 K/uL (0.00-0.30); Immature Granulocytes Pct Auto 0.1 %; Lymphocytes Percent Auto 17.5 % (20-44); Mean Corpuscular HGB Conc 33 gm/dL (32-36); Mean Corpuscular Hemoglobin 30 pg (26-34); Mean Corpuscular Volume 90 fL (80-100); Monocytes Percent Auto 4.9 % (0.0-11.0); Neutrophils Percent Auto 77.2 % (42.0-72.0); Platelet Count* 229 K/uL (140-440); RDW Coefficient of Variation % 12.7 % (11.5-15.5); Red Blood Count 4.58 m/uL (4.00-5.20)
[2024-05-03 13:00] VITALS: BP 128/90; PULSE 88; RESP 16; O2SAT 100
[2024-05-03 13:11] LABS: Slide Review Reflex No
[2024-05-03 13:13] LABS: Albumin* 4.3 g/dL (3.3-5.0); Chloride* 105 mmol/L (96-114)
[2024-05-03 13:14] LABS: Potassium* 3.9 mmol/L (3.6-5.1); Sodium* 137 mmol/L (135-149)
[2024-05-03 13:16] LABS: Creatinine* 0.5 mg/dL (0.5-1.5); Est. Creatinine Clearance* 115.93; Estimated Glomerular Filt Rate 120 ml/min
[2024-05-03 13:17] LABS: Alanine Aminotransferase* 12 U/L (4-35); Alkaline Phosphatase* 59 U/L (40-150); Anion Gap 9 mEq/L (7-15); Aspartate Amino Transferase* 17 U/L (12-35); Bilirubin Direct* 0.2 mg/dL (0.0-0.5); Bilirubin Total* 0.5 mg/dL (0.1-1.5); Blood Urea Nitrogen* 10 mg/dL (5-24); Calcium* 9.3 mg/dL (8.4-10.6); Carbon Dioxide* 23 mmol/L (20-32); Glucose* 108 mg/dL (60-115); Lipase* 104 U/L (23-300); Total Protein* 6.9 g/dL (6.0-8.3)
[2024-05-03 13:20] LABS: C Reactive Protein* 0.5 mg/dL (0.5-1.0)
[2024-05-03 14:13] LABS: D Dimer Quantitative* < 0.27 ug/ml (0.00-0.50)
[2024-05-03] MEDS: ONDANSETRON 2 MG/ML inj 4 MG IVP (14:58)
[2024-05-03] MEDS: GI COCKTAIL (VISC LIDO/ANTACID) 30 ML PO (14:59)
[2024-05-03 15:00] VITALS: BP 123/88; PULSE 80; RESP 16; O2SAT 100
== END 2024-05-03 15:57 | disposition home or self-care (01) ==
PROVIDERS: Emergency Provider Family Medicine; PCP Physician Assistant Medical
DX: R10.10 Upper abdominal pain, unspecified (principal)
CPT/HCPCS: 36415; 74176; 80048; 80076; 81003; 83690; 85025; 85379; 86140; 96374; 99283; 99284; A9270; J2405; J7030

== ENCOUNTER 2024-10-03 16:40 | Outpatient (CLI) | payer BC, SELFPAY | END 2024-10-03 16:41 | disposition home or self-care (01) | PROVIDERS: PCP Physician Assistant Medical; Visit Provider Physician Assistant Medical | DX: R53.83 Other fatigue (principal); Z13.21 Encounter for screening for nutritional disorder; Z13.0 Encounter for screening for diseases of the blood and blood-forming organs and certain disorders involving the immune mechanism | CPT/HCPCS: 82607; 83540; 83550 ==

== ENCOUNTER 2024-10-10 16:14 | Outpatient (CLI) | payer BC, SELFPAY ==
--- NOTE | 2024-10-10 16:45 | CRLHL7_ITS ---
For Patients: As a result of the 21st Century Cures Act, medical imaging exams and procedure reports are released immediately into your electronic medical record. You may view this report before your referring provider. If you have questions, please contact your health care provider. INDICATION: Right-sided throat pain. Difficulty swallowing. COMPARISON: 09/10/2020. TECHNIQUE: CT soft tissue neck with IV contrast. Isovue 370, 76 cc. FINDINGS: Bilateral parotid glands and submandibular glands are normal. Compared to the previous exam, there is a heterogeneous enhancing nodule of the right thyroid lobe measuring approximately 8 mm in diameter (series 3, image 47). This may be better evaluated by ultrasound. No enlarged cervical lymph nodes bilaterally. No supraclavicular or superior mediastinal adenopathy. Nasopharynx and oropharynx are clear. No inflammation within the paravertebral fat pads or retropharyngeal space. Normal thickness of the epiglottis. There is elongation of the bilateral styloid processes and calcification of the stylohyoid ligaments, right more prominent the left (best seen on series 4, image 51). 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 Normal thickness of the epiglottis. Normal glottis with symmetric vocal cords. Lung apices are clear. Normal alignment of the cervical spine. No prevertebral soft tissue swelling. Visualized mastoid air cells are clear. Small amount of fluid of left maxillary sinus. Remaining paranasal sinuses are clear. IMPRESSION: 1. Elongation of the bilateral styloid processes and calcification of the stylohyoid ligaments, right more prominent than left. Findings can be seen with Menominee syndrome and present with dysphagia. 2. No adenopathy. 3. Normal deep soft tissues of the neck. 4. No prevertebral soft tissue swelling Please note that all CT scans at this facility use dose modulation, iterative reconstruction, and/or weight-based dosing when appropriate to reduce radiation dose to as low as reasonably achievable. Dictated by Sharad Hawkins MD @ 10/11/2024 3:22:45 PM (Electronically Signed)
== END 2024-10-10 16:15 | disposition home or self-care (01) ==
LOC: CT 16:14
PROVIDERS: PCP Physician Assistant Medical; Visit Provider Physician Assistant Medical
DX: R13.10 Dysphagia, unspecified (principal); J31.2 Chronic pharyngitis
CPT/HCPCS: 70491; Q9967

== ENCOUNTER 2024-11-25 09:57 | Outpatient (CLI) | payer BC, SELFPAY ==
--- NOTE | 2024-11-25 10:15 | CRLHL7_ITS ---
For Patients: As a result of the Century Cures Act, medical imaging exams and procedure reports are released immediately into your electronic medical record. You may view this report before your referring provider. If you have questions, please contact your health care provider. Technique: Double-contrast esophagram performed after the uneventful administration of effervescent crystals and thick barium followed by thin barium. Fluoroscopy time 45 seconds. Indication: Dysphagia, EAGLES SYNDROME Comparison: CT neck 10/10/2024 Findings: Esophagus: Normal morphology and motility. No stricture or mass. Gastroesophageal reflux: None. Impression: Normal double-contrast esophagram. Dictated by Joshua Hwang MD @ 11/25/2024 11:16:33 AM (Electronically Signed)
== END 2024-11-25 09:58 | disposition home or self-care (01) ==
LOC: RAD 09:58
PROVIDERS: PCP Physician Assistant Medical; Visit Provider Otolaryngology
DX: R13.10 Dysphagia, unspecified (principal)
CPT/HCPCS: 74221

== ENCOUNTER 2024-11-28 16:08 | Emergency (ER) | payer BC, SELFPAY ==
--- OUTSIDE RECORDS SUMMARY | 2024-11-28 16:11 | XMS_ITS | Clinical Summary ---
Author Organization [facility] Address [address], [place] [address] Care Team Providers Care Sports Complex Attendant Name Role Phone Unavailable Primary Care Provider Unavailabl e Source Comments You are receiving this document as you are listed as the primary care provider,follow-up provider, or the patient has been referred to you for consultation.This is in compliance with the Medicare and[facility] EHR Incentive Program,which states Providers who transition their patient to another setting of careor provider of care or refers their patient to another provider of care shouldprovide summary care record for each transition of care or referral. [employer] Allergies Active Allergy Reactions Criticality Noted Date Comments Codeine Itching 07/28/2016 Hydrocodone-Acetaminophen Hives High 02/27/2013 Iodinated Contrast Media Hives High 06/18/2009 Penicillins Itching,Rash Low 02/27/2013 Medications metFORMIN XR (GLUCOPHAGE XR) 500 MG 24 hour release tablet Take 2 Tablets (1,000 mg) by mouth two times a day. 3 Active rosuvastatin (CRESTOR) 20 MG tablet Take 1 Tablet (20 mg) by mouth daily at bedtime. 3 Active OZEMPIC, 0.25 OR 0.5 MG/DOSE, 2 MG/3ML injection Inject subcutaneous ly. 3 Active tiZANidine (ZANAFLEX) 2 MG tablet Take by mouth. 3 Active gabapentin (NEURONTIN) 300 MG capsule Take 1 Capsule (300 mg) by mouth three times a day. Active amitriptyline (ELAVIL) 10 MG tabletIndications: Mild traumatic brain injury, with unknown loss of consciousness status, subsequent encounter Take 1 Tablet (10 mg) by mouth every evening. 30 Tablet 3 Active Social History Tobacco Use Types Packs/Day Years Used Date Smoking Tobacco: Every Day Cigarettes Smokeless Tobacco: Never Tobacco Cessation:Ready to Q uit: Not Asked; Counseling Given: Not Answered Comments Unknown Sex and Gender Information Value Date Recorded Sex Assigned at Not on file Legal Sex Female 4:11 PM CDT Gender Identity Not on file Sexual Orientation Not on file Last Filed Vital Signs Vital Sign Reading Time Taken Comments Blood Pressure 115/85 05/18/2023 2:56 PM CDT Pulse 95 05/18/2023 2:56 PM CDT Temperature - - Respiratory Rate - - Oxygen Saturation - - Inhaled Oxygen Concentration - - Weight - - Height - - Body Mass Index - - Plan of Treatment Health Maintenance Due Date Last Done Comments Cervical Cancer Screening Due 1981 Hep C Screening (Preventive Services) 1981 Mammogram 1981 HIV Screening (Preventive Services) 1997 Adult Preventive Visit 1999 HepB (1) 2000 COVID-19 Vaccine (4 2023-2 5 season) 2024 09/26/2021, 03/19/2021, 02/19/2021 Influenza (#1) 2024 07/06/2023, 06/17/2017, 07/13/2015 Pneumococcal (3 of 3 - PCV) 08/04/203108/2016, 07/13/2015 Zoster/Shingles (1 of 2) 2031 DTaP/Tdap/Td (3 - Tdap) 08/24/2032 08/24/19 23, 04/05/2013, 07/22/2004 HPV Vaccine Aged Out No longer eligi ble based on patient's age to complete this topic HepA Aged Out No longer eligi ble based on patient's age to complete this topic Hib Aged Out No longer eligi ble based on patient's age to complete this topic IPV (Polio) Aged Out No longer eligi ble based on patient's age to complete this topic MCV4 Aged Out No longer eligi ble based on patient's age to complete this topic Meningococcal B Aged Out No longer el igible based on patient's age to complete this topic
--- OUTSIDE RECORDS SUMMARY | 2024-11-28 16:11 | XMS_ITS | Encounter Summary ---
Author Organization [place] Address [address] [place] [id number] Care Team Providers Care Healthcare Translator Name Role Phone Carol Lambert MD Primary Care Provider [phone] Carol Lambert MD Unavailable Rosario Ku [facility] Unavailable [phone] Carol Lambert MD Unavailable Reason for Visit * Reason Onset Date Comments Medication Follow-up 01/13/2019 Encounter Details Date Type Department Care Team (Late st Contact Info) Description 01/13/2019 [facility] [place] Medical Advice [address] [address] Rosario Ku, [facility] [address] [place] [address] Medication Follow-up Social History Tobacco Use Types Packs/Day Years Used Date Smoking Tobacco: Every Day Cigarettes 0.5 4 Smokeless Tobacco: Never Alcohol Use Standard Drinks/Week Comments Yes 0 (1 standard drink = 0.6 oz pur e alcohol) occ PHQ-2 Answer Date Recorded PHQ-2 Score 0 12/15/2018 Comments No Sex and Gender Information Value Date Recorded Sex Assigned at Not on file Legal Sex Female 3:21 AM CONTROL ROOM AGENT Gender Identity Not on file Sexual Orientation Not on file 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 Not on file Not on file documented as of this encounter Plan of Treatment Not on file documented as of this encounter Visit Diagnoses Diagnosis Chronic allergic conjunctivitis- Primary Other chronic allergic conjunctivitis Tobacco abuse Tobacco use disorder documented in this encounter Additional Health Concerns Infection Onset Date Last Indicated Resolved Time Rule Out COVID-19 05/10/2020 05/10/2020 05/11/2020 7:32 PM CDT Rule Out COVID-19 08/17/2020 08/17/2020 08/18/2020 1:01 PM CONTROL ROOM AGENT Assessment Noted Time PHQ-9 Depression Total Score: 9 12/17/19 19 7:04 AM CDT documented as of this encounter Care Teams Healthcare Translator Relationship Specialty [place] [address] [place] [address] PCP - General Family Practice 09/11/15 [place] [id number] [place] [address] Assigned PCP 12/26/18 08/01/22 Rosario Ku, [facility] [address] [place] [address] Pharmacist Pharmacist 01/11/19 10/10/20 [place] [address] [place], [place] [id number] Assigned PCP 10/11/22 12/26/22 documented as of this encounter
--- OUTSIDE RECORDS SUMMARY | 2024-11-28 16:11 | XMS_ITS | Clinical Summary ---
Author Organization [facility] Address [address] [place] [address] Care Team Providers Care Scale Tester Name Role Phone Carol Lambert MD Primary Care Provider [phone] Allergies Active Allergy Reactions Criticality Noted Date Comments Amoxicillin Itching 07/28/2016 Codeine Itching 07/28/2016 Contrast Dye Hives 06/18/2009 Penicillins Rash Low 02/27/2013 Hydrocodone-Acetaminophen Hives 02/27/2013 Medications metFORMIN (GLUCOPHAGE XR) 500 MG 24 hr tablet 06/26/2022 Active cyclobenzaprine (FLEXERIL) 10 MG tablet 08/21/2022 Active Active Problems Patient Care Coordination No te Formatting of this note migh t be different from the original. [email or web address] Problem Noted Date Diagnosed Date Restless leg syndrome 06/27/2019 Assessment & Plan (06/27/2019 10:24 AM CENTRAL STATION OPERATOR): Feels leg spasms at night Start Requip Obesity (BMI 35.0-39.9) with comorbidity 019 Obesity 10/10/2016 Attention deficit hyperactiv ity disorder (ADHD), combined type 08/21/2015 Type 2 diabetes mellitus without complication Assessment & Plan (06/27/2019 10:25 AM CENTRAL STATION OPERATOR): Outpatient blood sugars 150-160 Check A1C today Hyperlipidemia LDL goal <130 01/12/2015 Chronic abdominal pain 01/12/2015 Assessment & Plan (06/27/2019 10:27 AM CENTRAL STATION OPERATOR): Recent ER visit diarrhea 06/20/19 Using metamucil which is working well to manage stools Menorrhagia 01/12/2015 Nephrolithiasis 01/12/2015 Pyelonephritis 01/12/2015 Overview (01/12/2015): S/p scarring of the R kidney. CARDIOVASCULAR SCREENING; LDL GOAL LESS THAN 160 06/16/2010 Assessment & Plan (06/27/2019 10:28 AM CENTRAL STATION OPERATOR): Trying to eat healthier diet - worried about having stroke/heart attack Check fasting lipids today Diabetes mellitus of mother, complicating , childbirth, or the puerperium, unspecified as to episode of care(648.00) 01/13/2003 Other ureteric obstruction 11/28/2002 High-risk 11/28/2002 Overview (05/17/2015): Problem list name updated by automated process. Provider to review TOBACCO ABUSE-CONTINUOUS 09/02/2002 Overview (08/01/2019): Quit 07/21/19 Assessment & Plan (06/27/2019 10:17 AM CENTRAL STATION OPERATOR): Continues smoking Stopped chantix as made her feel drugged Would like to stop by 07/17/19 Previous delivery, antepartum condition or complication 08/29/2002 Resolved Problems Problem Noted Date Diagnosed Date Resolved Date Abnormal glucose level 02/01/201502/02 Abnormal maternal glucose to lerance, antepartum 11/28/2002 02/01/2015 UTI (urinary tract infection) 08/29/2002 01/12/2015 Overview (05/17/2015): Problem list name updated by automated process. Provider to review Encounter for supervision of other normal 08/16/2002 01/12/2015 Overview (06/18/2015): Diagnosis updated by automated process. Provider to review and confirm. Immunizations Name Administration Dates Next Due COVID-19 Monovalent 18+ (Moderna) 09/26/2021,10/2020,02/19/2021 Influenza Vaccine >6 months,quad, PF 06/17/2017, 07/13/2015 Pneumo Conj 13-V (2010&after) 06/17/2017 Pneumococcal 23 valent 07/13/2015 Rabies Vaccine 06/03/2010,05/13/2010,05/06/2010 Rabies Vaccine (Rabavert) 06/03/2010,05/13/2010, 05/06/2010 TD,PF 7+ (Tenivac) 07/22/2004 TDAP (Adacel,Boostrix) 08/24/2022,04/05/2013 Family History Medical History Relation Comments Cerebrovascular Disease Father Psychotic Disorder Father Breast Cancer Maternal Grandmother Cancer Maternal Grandmother breast, cer vix Diabetes Maternal Grandmother Cancer Mother liver Family History Negative Mother Thyroid Disease Mother Neurologic Disorder Sister 2 seizures Thyroid Disease Sister 2 Family History Negative Sister 3 3 sister s Relation Status Comments Brother Father Maternal Grandfather Maternal Grandmother Mother Alive Paternal Grandfather Paternal Grandmother Sister 1 Alive 4 Sister 2 Alive Sister 3 Alive Sister 4 Alive Social History Tobacco Use Types Packs/Day Years Used Date Smoking Tobacco: Every Day Cigarettes 0.5 4 Smokeless Tobacco: Never Tobacco Cessation:Ready to Q uit: Not Asked; Counseling Given: Not Answered Comments:less then half a pack Alcohol Use Standard Drinks/Week Comments Yes 0 (1 standard drink = 0.6 oz pur e alcohol) occ PHQ-2 Answer Date Recorded PHQ-2 Score 0 12/26/2019 Adolescent Education Answer Date Record ed Getting School Help Needed Not on file 05/19 Comments No Sex and Gender Information Value Date Recorded Sex Assigned at Not on file Legal Sex Female 3:21 AM CENTRAL STATION OPERATOR Gender Identity Not on file Sexual Orientation Not on file 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 Not on file Not on file Last Filed Vital Signs Vital Sign Reading Time Taken Comments Blood Pressure 108/74 08/24/2022 5:51 PM CENTRAL STATION OPERATOR Pulse 110 08/24/2022 5:51 PM CENTRAL STATION OPERATOR Temperature 36.8 C (98.2 F) 08/24/2022 5:51 PM CENTRAL STATION OPERATOR Respiratory Rate 16 08/17/2020 10:03 AM CENTRAL STATION OPERATOR Oxygen Saturation 97% 08/24/2022 5:51 PM CENTRAL STATION OPERATOR Inhaled Oxygen Concentration - - Weight 86.2 kg (190 lb) 08/17/2020 10:03 AM CENTRAL STATION OPERATOR Height 157.5 cm (5' 2) 08/25/2019 5:17 PM CENTRAL STATION OPERATOR Body Mass Index 34.75 08/25/2019 5:17 PM CENTRAL STATION OPERATOR Plan of Treatment Health Maintenance Due Date Last Done Comments ADVANCE CARE PLANNING 1980 MAMMO SCREENING 1980 HEPATITIS C SCREENING 1999 HEPATITIS B IMMUNIZATION (1 of 3 - 19+ 3-dose series) 2000 DIABETIC FOOT EXAM 12/16/2019 12/15/2018, 0 12/15/2018, 09/09/2017, Additional history exists MICROALBUMIN 12/16/2019 12/15/2018, 09/18, 09/16/2017, Additional history exists YEARLY PREVENTIVE VISIT 12/16/2019 12/16/19 19, 01/12/2015, 02/13/2006, Additional history exists A1C 12/26/2019 06/27/2019, 05/0 08/2018, 06/10/2018, Additional history exists ANNUAL REVIEW OF HM ORDERS 05/04/2020 05/04/2019 LIPID 06/27/2020 06/27/2019, 05/0 08/2018, 09/09/2017, Additional history exists BMP 08/22/2020 08/22/2019, 110 11/2018, 11/07/2018, Additional history exists HPV TEST 08/17/2021 01/12/2015 PAP 08/17/2021 08/17/2016, 2 04/2015, 07/22/2004, Additional history exists EYE EXAM 07/04/2022 07/04/2021, 06/17, 04/26/2020, Additional history exists COVID-19 Vaccine ( season) 2024 09/26/2021, 03/19/2021, 02/19/2021 INFLUENZA VACCINE (#1) 2024 3, 06/27/2019 (Declined), 06/17/2017, Additional history exists PHQ-2 (once per calendar year) 2024 12/26/2019, 12/15/2019, 12/15/2019, Additional history exists Pneumococcal Vaccine: Pediatrics (0 to 5 Years) and At-Risk Patients (6 to 49 Years) (3 of 3 - PCV20 or PCV21) 2031 06/17/2017, 07/13/2015 ZOSTER IMMUNIZATION (1 of 2) 2031 DTAP/TDAP/TD IMMUNIZATION (4 - Td or Tdap) 08/24/2032 08/24/2022, 04/05/2013, 07/22/2004 HIV SCREENING Completed 08/01/2002 HPV IMMUNIZATION Aged Out No longer e ligible based on patient's age to complete this topic MENINGITIS IMMUNIZATION Aged Out No l onger eligible based on patient's age to complete this topic Procedures Procedure Name Priority Date/Time Associated Diagnosis Comments EYE EXAM - HIM SCAN Routine 07/04/2021 BASIC METABOLIC PANEL STAT 08/22/2019 7:12 AM CENTRAL STATION OPERATOR LIPID REFLEX TO DIRECT LDL PANEL Routine 06/27/2019 10:55 AM CENTRAL STATION OPERATOR Hyperlipidemia LDL goal <130 HEMOGLOBIN A1C Routine 06/27/2019 10:55 AM CENTRAL STATION OPERATOR Type 2 diabetes mellitus without complication, without long-term current use of insulin (H) ALBUMIN RANDOM URINE QUANTITATIVE Routine 12/15/2018 11:41 AM CDT Type 2 diabetes mellitus without complication, without long-term current use of insulin (H) PAP SMEAR - HIM PATIENT REPORTED Routine 08/17/2016 C FOOT EXAM Routine 07/13/2015 Type 2 diabetes mellitus without complication (H) HPV HIGH RISK TYPES DNA CERVICAL Routine 01/12/2015 9:40 AM CDT Routine general medical examination at a health care facility HCL HIV 1 & 2 ANTIBODY Routine 08/01/2002 12:27 PM CENTRAL STATION OPERATOR Supervis Other Normal Preg from Last 3 Months or Most Recently Relevant to Health Maintenance Results * Eye Exam - HIM Scan (07/04/2021) RETINOPATHY UNKNOWN Narrative Shasta Chavez - 07/04/2021 Eye exam with ophthalmology on this date: 07-04-21 Leena Ratliff MA Abstract Quality Initiatives us Patient Reported OTHER Edited Result - Final * (ABNORMAL) Basic metabolic panel (08/22/2019 7:12 AM CENTRAL STATION OPERATOR) Sodium 137 133 - 144 mmol/L 08/22/2019 7:37 AM [facility] Potassium 3.8 3.4 - 5.3 mmol/L 08/22/2019 7:37 AM [facility] Chloride 104 94 - 109 mmol/L 08/22/2019 7:37 AM [facility] Carbon Dioxide 28 20 - 32 mmol/L 08/22/2019 7:45 AM [facility] Anion Gap 5 3 - 14 mmol/L 08/22/2019 7:45 AM [facility] Glucose 184(H) 70 - 99 mg/dL 08/22/2019 7:45 AM [facility] Urea Nitrogen 8 7 - 30 mg/dL 08/22/2019 7:45 AM [facility] Creatinine 0.59 0.52 - 1.04 mg/dL 08/22/2019 7:45 AM [facility] GFR Estimate >90 >60 mL/min/{1. 73_m2} 08/22/2019 7:45 AM [facility] Comment: Non GFR Calc Starting 08/03/2018, serum creatinine based estimated GFR (eGFR) will be calculated using the Chronic Kidney Disease Epidemiology Collaboration (CKD-EPI) equation. GFR Estimate If Black >90 >60 mL/min/{1. 73_m2} 08/22/2019 7:45 AM [facility] Comment: GFR Calc Starting 08/03/2018, serum creatinine based estimated GFR (eGFR) will be calculated using the Chronic Kidney Disease Epidemiology Collaboration (CKD-EPI) equation. Calcium 9.3 8.5 - 10.1 mg/dL 08/22/2019 7:45 AM [facility] Blood specimen (specimen) 08/22/2019 7:12 AM CENTRAL STATION OPERATOR 08/22/2019 7:16 AM CENTRAL STATION OPERATOR us Cyndi Anderson MD LAB - BLOOD ORDERABLES Final R esult [facility] [address] [place] [address], [facility] [phone] * (ABNORMAL) Lipid panel reflex to direct LDL Fasting (06/27/2019 10:55 AM CENTRAL STATION OPERATOR) Cholesterol 226(H) <200 mg/dL 06/28/2019 8:31 AM CENTRAL STATION OPERATOR [facility] Comment:Desirable: <200 mg/d l Triglycerides 205(H) <150 mg/dL 06/28/2019 8:31 AM CENTRAL STATION OPERATOR [facility] Comment: Borderline high: 150-199 mg/dl High: 200-499 mg/dl Very high: >499 mg/dl Fasting specimen HDL Cholesterol 38(L) >49 mg/dL 9 8:37 AM CENTRAL STATION OPERATOR [facility] LDL Cholesterol Calculated 147(H) <100 mg/dL 06/28/2019 8:37 AM CENTRAL STATION OPERATOR [facility] Comment: Above desirable: 100-129 mg/dl Borderline High: 130-159 mg/dL High: 160-189 mg/dL Very high: >189 mg/dl Non HDL Cholesterol 188(H) <130 mg/dL 06/28/2019 8:37 AM CENTRAL STATION OPERATOR [facility] Comment: Above Desirable: 130-159 mg/dl Borderline high: 160-189 mg/dl High: 190-219 mg/dl Very high: >219 mg/dl Blood specimen (specimen) 06/27/2019 10:55 AM CENTRAL STATION OPERATOR 06/27/2019 10:56 AM CENTRAL STATION OPERATOR us Carol Lambert MD LAB - BLOOD ORDERABLES Final Res ult [facility] [address] [place] [address] * (ABNORMAL) HEMOGLOBIN A1C (06/27/2019 10:55 AM CENTRAL STATION OPERATOR) Hemoglobin A1C 6.8(H) 0 - 5.6 % 06/27/2019 11:05 AM CENTRAL STATION OPERATOR [facility] Comment: Normal <5.7% Prediabetes 5.7-6.4% Diabetes 6.5% or higher - adopted from ADA consensus guidelines. Blood specimen (specimen) 06/27/2019 10:55 AM CENTRAL STATION OPERATOR 06/27/2019 10:56 AM CENTRAL STATION OPERATOR Carol Lambert MD LAB - BLOOD ORDERABLES Final Res ult Performing Organization Address [facility]/ZIP Co de Phone Number [facility] [address] [place] [address] * Albumin Random Urine Quantitative with Creat Ratio (12/15/2018 11:41 AM CDT) Creatinine Urine 126 mg/dL 12/16/2018 8:19 AM CDT [facility] Albumin Urine mg/L 16 mg/L 12/16/2018 9:55 AM CDT [facility] Albumin Urine mg/g Cr 12.30 0 - 25 mg/g Cr 12/16/2018 9:55 AM CDT [facility] Urine specimen (specimen) 12/15/2018 11:41 AM CDT 12/15/2018 11:42 AM CDT Carol Lambert MD LAB - URINE ORDERABLES Final Res ult Performing Organization Address City/[facility]/ZIP Co de Phone Number [facility] [address] [place] [address] [facility] [address] [phone] * PAP Smear - HIM Patient Reported (08/17/2016) PAP Smear - HIM Patient Reported Negative EXTERNAL LAB 08/17/2016 Narrative EXTERNAL LAB - 08/17/2016 Patient Reported: Pap smear done on this date: 08/2016 (approximately), by this group: [employer], results were normal. us Patient Reported LABORATORY Final Result EXTERNAL LAB External Lab * FOOT EXAM (07/13/2015) Carol Whitney MD - 07/13/2015 Done, normal. Carol Lambert MD PROCEDURES Final Result * HPV High Risk Types DNA Cervical (01/12/2015 9:40 AM CDT) HPV 16 DNA Negative [facility]G [facility] HPV 18 DNA Negative NEG [facility] Other HR HPV Negative NEG [facility] Final Diagnosis This patient's sample is negative for HPV DNA. The [employer] (ACOG) recommends any woman between 30-65 years old who receives negative test results on both Pap cytology screening and HPV DNA testing should be rescreened in 5 years. (Note) METHODOLOGY: The Yair shala 4800 system uses automated extraction, simultaneous amplification of HPV (L1 region) and beta-globin, followed by real time detection of fluorescent labeled HPV and beta globin using specific oligonucleotide probes . The test specifically identifies types HPV 16 DNA and HPV 18 DNA while concurrently detecting the rest of the high risk types (31, 33, 35, 39, 45, 51, 52, 56, 58, 59, 66 or 68). COMMENTS: This test is not intended for use as a screening device for women under age 30 with normal cervical cytology. Results should be correlated with cytologic and histologic findings. Close clinical followup is recommended. This test was developed and its performance characteristics determined by the [facility], [facility]. It has not been cleared or approved by the FDA. The laboratory is regulated under CLIA as qualified to perform high-complexity testing. This test is used for clinical purposes. It should not be regarded as investigational or for research. [facility] Specimen Description Cervical Cells [id number] [facility] 01/12/2015 9:40 AM CDT 01/12/2015 9:50 AM CDT Carol Lambert MD LAB - BLOOD ORDERABLES Final Res ult [facility] [address] [place] [address] * HIV-1/HIV-2, SCREEN (08/01/2002 12:27 PM CENTRAL STATION OPERATOR) HIV 1&2 Antibody Negative NEG [facility] 08/01/2002 12:2 7 PM CENTRAL STATION OPERATOR 08/01/2002 12:32 PM CENTRAL STATION OPERATOR us Enrique Garcia MD LABORATORY Final Result Performing Organization Address City/[facility]/ZIP Co de Phone Number [facility] [address] [place] [address] from Last 3 Months or Most Recently Relevant to Health Maintenance [place] [facility] * Guarantor: Concepción Ovalle Account Type Relation to Patient Date of Phone Billing Address Medication Therapy Self 1980 [address] [place] [address] Advance Directives For more information, please contact: [phone] * Full Code (Latest Code Status on File) Date Activated Date Inactivated Comments 02/28/2013 2:14 PM 11/07/2018 4:23 PM Care Teams Scale Tester Relationship Specialty [place] [address] [place] [address] PCP - General Family Practice 09/11/15
--- OUTSIDE RECORDS SUMMARY | 2024-11-28 16:11 | XMS_ITS | Encounter Summary ---
Author Organization [facility] Address [address] [place] [address] Care Team Providers Care Boring Mill Operator For Metal Name Role Phone Xiang Moreno MD Primary Care Provider + [phone] Dedrick Frazier Primary Care Provider [phone] Carol Lambert MD Primary Care Provider [phone] Carol Lambert MD Unavailable Richie Palm MD Unavailable Carol Salmon MD Unavailable Varsha Thompson MD Unavailable + Carol Lambert MD Unavailable Rosario Ku [facility] Unavailable +[phone] Carol Lambert MD Unavailable Encounter Details Date Type Department Care Team (Late st Contact Info) Description 09/19/2008 Office Visit-[facility] [address] [place] [address] Unknown, Doctor, Social History Tobacco Use Types Packs/Day Years Used Date Smoking Tobacco: Every Day Cigarettes 0.1 4 Comments:pt smoking approx 2 cigs per day Alcohol Use Standard Drinks/Week Comments No 0 (1 standard drink = 0.6 oz pur e alcohol) Comments No Sex and Gender Information Value Date Recorded Sex Assigned at Not on file Legal Sex Female 3:21 AM BEAD WORKER SEWING Gender Identity Not on file Sexual Orientation Not on file 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 DATE: 09/18/2008 CONCEPCIÓN OVALLE DATE OF : 1980 AGE: [age] years old Referring Physician: JAMARCUS, SELF CURRENT DIAGNOSES 1. - Tachycardia, 785.0 ALLERGIES NKA MEDICATIONS (prior to changes made today) 1. Albuterol Sulfate 90 mcg/inhaler, Take as Directed CHIEF COMPLAINTS HISTORY OF PRESENT ILLNESS INDICATION FOR CARDIAC CONSULTATION: Tachycardia. Concepción Ovalle is a 28-year-old female patient who noticed that when she was working out in the gym that she would notice quite a degree of variability in her heart rate. Her heart rate would go from 130 and then would jump to 152 and then back down to 130 again. The heart rate, of course, has been measured on the exercise machines, which essentially measure heart rate from the staffing assistant on the machines, which are not that reliable. She herself feels fine. She doesn't feel any dizziness or light-headedness during the exercise. Sometimes she has some pressure when she is pushing herself and some left heaviness but otherwise feels fine. She did have some investigation in the past when she was 15when she was in [place] but then when she came back here for tachycardia though EP studies were performed and no major league investigations were performed and she was put on no medications. She does notice that sometimes over the last year when she wakes up at nighttime she might feel her heart beating rapidly and it would last for two minutes and gradually go away. Sometimes during the day she would notice that as well. She does smoke cigarettes she does drink approximately 1-2 cups of caffeine per day. She was also drinking quite a lot of caffeinated pop as well. She has lost about 30 pounds but is still significantly overweight at 190 pounds. She is only 5'2 in height. She has not noticed any particular ankle edema. 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 INTEGUMENTARY denies any change in hair or nails, rashes, or skin lesions. EYES denies diplopia, history of glaucoma or visual field defects. EARS, NOSE, THROAT, MOUTH denies any hearing loss, epistaxis, hoarseness or difficulty speaking. RESPIRATORY dyspnea CARDIOVASCULAR chest pain, light headedness ABDOMINAL denies ulcer disease, hematochezia or melena. MUSCULOSKELETAL denies any history of arthritic symptoms or back problems. NEUROLOGICAL denies any history of recurrent strokes, headaches, TIA, or seizure disorder. PSYCHIATRIC denies any history of depression, substance abuse or change in cognitive functions. ENDOCRINE denies any history of thyroid disease or diabetes mellitus. HEMATOLOGICAL/IMMUNOLOGIC denies any food allergies, seasonal allergies, bleeding disorders. PHYSICAL EXAMINATION VITAL SIGNS: Blood Pressure: 108/70 Sitting, Left arm, large cuff Pulse- 70.00/min. Weight- 190.00 lbs. Height- 62.00 Temperature- .00 CONSTITUTIONAL well developed, well nourished, in no acute distress, mildly obese SKIN warm and dry to touch, no apparent skin lesions, or masses noted. HEAD normocephalic, atraumatic EYES Pupils equal and round, conjunctivae and lids unremarkable, sclera white, no xanthalasma ENT no pallor or cyanosis, dentition good NECK carotid pulses are full and equal bilaterally, JVP normal, no carotid bruit, no thyromegaly CHEST normal symmetry, no tenderness to palpation, normal respiratory excursion, no intercostal retraction, no use of accessory muscles, clear to auscultation and percussion. CARDIAC regular rhythm, S1 normal, S2 normal, No S3 or S4, Apical impulse not displaced, no murmurs, gallops or rubs detected. ABDOMEN abdomen soft, bowel sounds normoactive, no masses, no hepatosplenomegaly, non- tender, no bruits EXTREMITIES & BACK no deformities, clubbing, cyanosis, erythema or edema observed. There are no spinal abnormalities noted. Normal muscle strength and tone. NEUROLOGICAL no gross motor deficits noted, affect appropriate, oriented to time, person and place. MEDICATIONS UPDATED/STARTED TODAY: Albuterol Sulfate 90 mcg/inhaler, Take as Directed, 0 IMPRESSION: 1. Tachycardia. This may well be sinus tachycardia alone but we need to rule out arrhythmia to makesure that she does not have any structural heart disease. 12- lead electrocardiogram, which I interpreted here today, looks entirely normal, as there was no evidence of preexcitation. 2. Significantlyoverweight but is working hard at losing weight. 3. Tobacco abuse. PLAN: 1. We will obtain a stress EKG to determine whether she develops any dysrhythmia with exercise and since exercise appears to be the predominant environment for this variation in heart rate has been noted it is was the ideal test to perform. 2. We will obtain an event monitor to determine the natureof these episodes of palpitations, which she gets during the day and at nighttime. 3. We will obtain an echocardiogram to make sure there is no evidence of structural heart disease. 4. We will see her back with the results of those tests. 5. We will obtain a basic metabolic profile, thyroid function tests and magnesium to ensure that she does not have any basic electrolyte or metabolic abnormalities. It has certainly been a pleasure being involved in the care of this extremely nice patient. TODAYS ORDERS 1. BMP Today 2. T3, Thyroxine, TSH Profile Today 3. Magnesium Today 4. 2D, color flow, doppler 2 days 5. Standard Event Monitor Today 6. Alexander Treadmill 2 days 7. Return Visit 3 weeks Nabeel Levy M.D. documented in this encounter Plan of Treatment Not on file documented as of this encounter Visit Diagnoses Not on filedocumented in this encounter Additional Health Concerns Infection Onset Date Last Indicated Resolved Time Rule Out COVID-19 05/10/2020 05/10/2020 05/11/2020 7:32 PM CDT Rule Out COVID-19 08/17/2020 08/17/2020 08/18/2020 1:01 PM BEAD WORKER SEWING documented as of this encounter Care Teams Boring Mill Operator For Metal Relationship Specialty Start Date End Date Xiang Moreno MD [address] [place] [address] [id number] PCP - General 10/01/01 02/27/13 Dedrick Frazier [address] [address] PCP - General 02/28/13 09/10/15 [place] [address] [place] [address] PCP - General Family Practice 09/11/15 [place] [address] [place] [address] PCP - Assigned PCP 01/21/15 10/19/18 Richie Palm MD Assigned PCP 10/17/18 11/06/18 [place] [address] [place] [address] Assigned PCP 12/21/14 10/16/18 Varsha Thompson MD [facility] [address] [address] Assigned PCP 11/07/18 12/25/18 [place] [address] [place] [address] Assigned PCP 12/26/18 08/01/22 Rosario Ku, [facility] [address] [facility] [place] [address] Pharmacist Pharmacist 01/11/19 10/10/20 [place] [address] [place] [address] Assigned PCP 10/11/22 12/26/22 documented as of this encounter
--- OUTSIDE RECORDS SUMMARY | 2024-11-28 16:11 | XMS_ITS | Encounter Summary ---
Author Organization [facility] Address [address] [place] [id number] Care Team Providers Care Structural Steel Detailer Name Role Phone Xiang Moreno MD Primary Care Provider + [phone] Dedrick Frazier Primary Care Provider [phone] Carol Lambert MD Primary Care Provider [phone] Carol Lambert MD Unavailable Richie Palm MD Unavailable Carol Salmon MD Unavailable Varsha Thompson MD Unavailable + Carol Lambert MD Unavailable Rosario Ku [facility] Unavailable [phone] Carol Lambert MD Unavailable Encounter Details Date Type Department Care Team (Late st Contact Info) Description 10/17/2008 Office Visit-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 - Tachycardia, 785.0 ALLERGIES NKA MEDICATIONS (prior to changes made today) 1. Albuterol Sulfate 90 mcg/inhaler, Take as Directed CHIEF COMPLAINTS fu echo, event monitor, stress ekg HISTORY OF PRESENT ILLNESS Ms. Ovalle is a delightful 28-year-old female who presents to the [facility] today for a follow-up visit regarding her recent testing that she had done for tachycardia. She was evaluated by Dr. Levy as she was having some complaints of heart rates that would jump from 130 up to 150 beats per minute and back down again. She says that she was exercising 90 minutes every other day. She feels well. She does note that she does have some palpitations, however for the most part she stays very active and does not have any other light-headedness, dizziness, shortness of breath orchest discomfort. She did undergo she believes a thorough EP work-up when she was 15 which came back normal. She did have electrolytes drawn as well as her thyroid panel, which were within normal limits. She had an echocardiogram, which was also normal. She also had a stress EKG, which did not show any evidence of arrhythmias. There were also no EKG changes consistent with ischemia. Her blood pressure andheart rate increased with exercise appropriately and came down appropriately. She then also had an e vent monitor which showed heart rates between the 50s and 160s. She did have sinus tachycardia whenshe was exercising, however no other significant findings were noted. All other review of systems, past medical history, and physical examination findings are noted below. PAST HISTORY Past Medical Illnesses: Septic shock Past Cardiac Illnesses: tachycardia Cardiology Procedures-Noninvasive: echocardiogram Sep 2008, treadmill Sep 2008, event monitor Sep 2008 Left Ventricular Ejection Fraction: EF55% by Echo -Sep 2008 CARDIAC RISK FACTORS Tobacco Abuse: currently smoking; Family History of Heart Disease: negative; Prior History of HeartDisease: negative; Obesity:positive, BMI25 (Over weight); Age:negative PHYSICAL EXAMINATION VITAL SIGNS: Blood Pressure: 112/70 Sitting, Left arm, large cuff Pulse- 80.00/min. Weight- 193.00 lbs. Height- 62.00 Temperature- .00 CONSTITUTIONAL well [...] time, person and place. MEDICATIONS UPDATED/STARTED TODAY: IMPRESSIONS/PLAN 1. Tachycardia at which point her structure and function of her heart is normal. We have ruled out any arrhythmias at this point in time. At this point in time I think she is just having normal sinustachycardia. We have asked her to avoid alcohol, caffeine and too much stress as these could be triggering factors for her. She is going to continue to work on diet and exercise and see if she can lose weight. We spent a large amount of our visit discussing what changes she can make in her diet in hopes to lose weight as she feels that she has plateaued after she lost the 30 pounds. She will return to see us on an as needed basis. REMIGIO Del Rosario documented in this encounter Plan of Treatment Not on file documented as of this encounter Visit Diagnoses Not on filedocumented in this encounter Additional Health Concerns Infection Onset Date Last Indicated Resolved Time Rule Out COVID-19 05/10/2020 05/10/2020 05/11/2020 7:32 PM CDT Rule Out COVID-19 08/17/2020 08/17/2020 08/18/2020 1:01 PM SECOND BALLER documented as of this encounter Care Teams Structural Steel Detailer Relationship Specialty Start Date End Date Xiang Moreno MD [address] [place] [address] PCP - General 10/01/01 02/27/13 Dedrick Frazier [facility] [address] [place] [address] PCP - General 02/28/13 09/10/15 [place] [address] [place] [address] PCP - General Family Practice 09/11/15 [place] [address] [place] [address] PCP - Assigned PCP 01/21/15 10/19/18 Richie Palm MD Assigned PCP 10/17/18 11/06/18 [place] [address] [place] [address] Assigned PCP 12/21/14 10/16/18 Varsha Thompson MD [facility] [address] [place] [address] Assigned PCP 11/07/18 12/25/18 [place] [address] [place] [address] Assigned PCP 12/26/18 08/01/22 Rosario Ku, [facility] [address] [place] [address] Pharmacist Pharmacist 01/11/19 10/10/20 [place] [address] [place] [address] Assigned PCP 10/11/22 12/26/22 documented as of this encounter
--- OUTSIDE RECORDS SUMMARY | 2024-11-28 16:11 | XMS_ITS | Encounter Summary ---
Author Organization [facility] Address [address] [place] [address] Care Team Providers Care Oyster Preparer Name Role Phone Xiang Moreno MD Primary Care Provider +- [phone] Dedrick Frazier Primary Care Provider [phone] Carol Lambert MD Primary Care Provider Carol Lambert MD Unavailable iRchie Palm MD Unavailable Carol Salmon MD Unavailable Varsha Thompson MD Unavailable + Carol Lambert MD Unavailable Rosario Ku [facility] Unavailable Carol Lambert MD Unavailable Encounter Details Date Type Department Care Team (Late st Contact Info) Description 01/03/[address] [address] Enrique Garcia MD [facility] [address] [address] OP REPT; DIS SUMM 01/06 (Primary Dx) Social History Tobacco Use Types Packs/Day Years Used Date Smoking Tobacco: Every Day Cigarettes 0.5 4 Smokeless Tobacco: Never Comments:less then half a pa ck Alcohol Use Standard Drinks/Week Comments Yes 0 (1 standard drink = 0.6 oz pur e alcohol) occ Comments No Sex and Gender Information Value Date Recorded Sex Assigned at Not on file 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 Intra uterine gestation, term. 2. Previous sections x2. 3. Multiparity; desiring permanent sterili zation. 4. Gestational diabetes mellitus requiring insulin. 5. Chronic urinary tract infections, on a ntibiotics and ureteral stents in situ. 6. Depression. POST-OPERATIVE DIAGNOSIS: 1. Intrauterine ges tation, term. 2. Previous sections x2. 3. Multiparity; desiring permanent sterilization. 4. Gestational diabetes mellitus requiring insulin. 5. Chronic urinary tract infections, on antibiotics and ureteral stents in situ. 6. Depression. 7. Multiple pelvic adhesions. 8. Dehiscence of uterine sc ar. 9. Live female . OPERATION: 1. Repeat section. 2. Bilateral tubal ligation. 3. Ly sis of adhesions. ANESTHESIA: Spinal. HISTORY: Concepción Dumont is a 22-year-old patient who had he r care at [facility] by myself. Her was complicated with multiple uri nary tract infections. She was seen by [facility], Dr. Lovett and also by Urolog y. She has been on antibiotics throughout the . During the , ureteral stents were placed to help reduce these infections. Her was also complicated by gestational diabetes which required insulin. She was treated by Dr. Gomez, spiritual advisor for the diabetes mellitus. T he patient suffers from depression. This was under control. She has two other children and her secon d was complicated by ARDS and sepsis requiring admission to the Intensive Care Unit at [facility] h time she was extremely ill. She has chosen not to have any further children and would like permane nt sterilization. The rest of her care was fairly fine. PROCEDURE: Patient was brought to the operating room. Spinal analgesia was administered. Her bladder was catheterized with a Crowder ca theter. She was having regular uterine contractions and her bag of water had been broken. A pelvic exam done showed that she was 4 cm with the vertex presentation. Clear fluid was draining. The proc edure proceeded abdominally. The abdomen was prepped and draped in usual sterile manner. A transver se low abdominal incision was made at the site of previous incisions and the abdomen was opened to th e level of the fascia. Of note, there were adhesions of the peritoneum and omentum to the anterior a bdominal wall and to the uterus. No bladder flap was discernible. On entering the abdomen, it was n oted that the membrane and part of the shoulder can be seen through an approximately 5 cm opening in the previous uterine scar. The opening was continued after lysing adhesions. It was opened uterus sharply. The live female infant was delivered. Weight was 7 pounds 8 ounces. Apgars 8 at on e minute and 9 at five minutes. The placenta was delivered and the uterus was wiped clean with a dry laparotomy pad. The uterine incision was repaired in two layers with #0 Monocryl. Hemostasis was s ecured. The uterus was placed on the abdomen. Each tube was grasped, ligated with plain catgut and d ivided. This was done on both sides. The ovaries were noted to be normal. The uterus was replaced in the abdomen. Peritoneal toilet was performed. Further adhesions of omentum were to get some peritoneum to repair, as the peritoneum was repaired, patched, and closed. After removing all i nstruments and laparotomy pads, the fascia was then repaired with #0 Vicryl suture material. Subcuta neous tissue was reapproximated with #0 plain catgut and oliverio were placed for the skin. The estim ated blood loss was 200 cc. Lines: Peripheral venous. Drains: Crowder to straight drainage. Specime ns: Portions of right and left tube. Both mother and baby were doing well. Darcie GARCIA MD Electronically filed by Chrystal Chiang 01/10/2003 3:58 PM 14:11 Discharge Summary -[facility] Darcie GARCIA () [Entered: 00:00 Stave Jointer ([facility])] ADMISSION DIAGNOS IS: 1. Intrauterine gestation at term. 2. Previous section x 2. 3. Multiparity--desires perm anent sterilization. 4. Gestational diabetes mellitus requiring insulin. 5. Repeat chronic urinary tr act infection (UTI) requiring antibiotics throughout the and placement of a ureteric stent. 6. Dehiscence of uterine scar. PROCEDURE: Repeat section and a live female infant was de livered. Lysis of adhesions. HOSPITAL COURSE: Concepción Dumont's hospital course was smooth in spite of her complications. She was discharged in good condition. Hemoglobin was 10.5 g/dL. DISCHA RGE PLAN: She is sent home with Percocet. She is to continue her vitamins. She is to call for any complications. She is to call Dr. Hernandez, her systems software manager, to restart her antidepressant medic ations and for follow-up in two weeks. Darcie GARCIA MD [place]: dre Document: [id number] [place], [place] Name: CONCEPCIÓN SIMPSON Please refer to the Nursing Discharge Information Sheet for more detailed informati on regarding diet, physical activity limitations, medications and other pertinent instructions given to this patient upon discharge. DISCHARGE SUMMARY Page 2 of 1 LCN: 4N DSC: 01/06/2003 [place], [place] Name: CONCEPCIÓN DUMONT MR#: : Admit Date: [id number] 01/03/2003 Doctor: Darcie GARCIA MD Please refer to the Nursing Discharge Informa tion Sheet for more detailed information regarding diet, physical activity limitations, medications a nd other pertinent instructions given to this patient upon discharge. DISCHARGE SUMMARY Page 1 of 1 Electronically filed by Samantha Canales 01/11/2003 12:26 PM documented in this encounter Plan of Treatment Not on file documented as of this encounter Visit Diagnoses Diagnosis OP REPT; DIS SUMM 01/06- Primary documented in this encounter Additional Health Concerns Infection Onset Date Last Indicated Resolved Time Rule Out COVID-19 05/10/2020 05/10/2020 05/11/2020 7:32 PM CDT Rule Out COVID-19 08/17/2020 08/17/2020 08/18/2020 1:01 PM PRE K LEAD TEACHER documented as of this encounter Care Teams Oyster Preparer Relationship Specialty Start Date End Date Xiang Moreno MD [address] [place] [address] PCP - General 10/01/01 02/27/13 Dedrick Frazier [address] [address] PCP - General 02/28/13 09/10/15 [place] [address] [place] [address] PCP - General Family Practice 09/11/15 [place] [address] [place] [address] PCP - Assigned PCP 01/21/15 10/19/18 Richie Palm MD Assigned PCP 10/17/18 11/06/18 [place] [address] [place] [address] Assigned PCP 12/21/14 10/16/18 Varsha Thompson MD [address] [address] Assigned PCP 11/07/18 12/25/18 [place] [address] [place], [place] [id number] Assigned PCP 12/26/18 08/01/22 Rosario Ku, [facility] [address] [place] [address] Pharmacist Pharmacist 01/11/19 10/10/20 [place] [address] [place], [place] [id number] Assigned PCP 10/11/22 12/26/22 documented as of this encounter
--- OUTSIDE RECORDS SUMMARY | 2024-11-28 16:11 | XMS_ITS | Encounter Summary ---
Author Organization [facility] Address [address] [place] [address] Care Team Providers Care Gas Leak Inspector Name Role Phone Xiang Moreno MD Primary Care Provider [phone] Dedrick Frazier Primary Care Provider [phone] Carol Lambert MD Primary Care Provider [phone] Carol Lambert MD Unavailable Richie Palm MD Unavailable Carol Salmon MD Unavailable Varsha Thompson MD Unavailable + Carol Lambert MD Unavailable Rosario Ku [facility] Unavailable Carol Lambert MD Unavailable Encounter Details Date Type Department Care Team (Late st Contact Info) Description 07/03/[address] [address] Jackie Hernandez MD NO INFO FOUND XXXCHANDNI [id number] ER ENC 07/03/02 (Primary Dx) Social History Tobacco Use Types [...] on file 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 Cough. HISTORY OF PRESENT ILLNESS: Preston Dumont is a 21-year-old female who has had a 2-3 day history of cough productive of some yello wish sputum and runny nose. She has felt feverish, but had not measured here at home. This morning she developed some lower abdominal cramping, mostly on the left side. She has had no vaginal disch arge or bleeding. She has been slightly nauseated. She does report that she is approximately 12 wee ks and has been uncomplicated so far. She did have an ultrasound early in the w [facility] showed a living intrauterine . She denies any diarrhea, no urinary symptoms. PAST MEDICAL HISTORY: The patient currently rates her pain a 10/10. Describes it as cramping in nature . Positive for fibromyalgia. She is on no current medications. Has no allergies. No significant family history. SOCIAL HISTORY: Denies current use of alcohol, tobacco or other drugs. REVIEW OF SYSTEMS: Otherwise well. Negative other than above. PHYSICAL EXAMINATION: VITAL SIGNS: Oral tem perature 97.9, pulse 95, respiratory rate 16, blood pressure 116/74. Pulse oximeter 99% on room air. GENERAL: She is alert and oriented times three, laying on cart. Appears mildly uncomfortable, no ntoxic. HEENT: Head is normocephalic and atraumatic. No scleral or conjunctival injection, discharge or icterus. There is no nasal discharge. The patient is sniffing. No sinus tenderness. Oropharynx is clear with moist mucous membranes. No erythema, edema or exudate. NECK is supple without lymphad enopathy. LUNGS are clear to auscultation bilaterally without wheezing, rales or rhonchi. CORONARY: Regular rate and rhythm, no murmurs, gallops or rubs. ABDOMEN: Soft and distended consistent with 12 weeks . She has mild left sided tenderness, but no rebound, guarding or other peritoneal signs. No CVA or flank tenderness. SKIN: Warm and dry, with no rashes. PELVIC examination is def erred. LAB DATA: Urinalysis shows clear yellow urine. Specific gravity 1.010, pH 7.0, no nitrat es or leukocyte esterase. heart tones are 156 and regular. ASSESSMENT/PLAN/EMERGENCY DEPARTM ENT COURSE: I believe the patient probably has a bronchitis. I am unsure of the etiology of her ab dominal pain, but I am not concerned for potential infection. She does have a living intrauterine p regnancy and I do not feel that repeat ultrasound is indicated at this time. She has had no bleeding. I feel that she can probably be safely discharged to home. She was given Ibuprofen 600 mg here in the Emergency Department with good relief of her discomfort. She is instructed to use Tylenol and Motrin for pain. I will place her on Amoxicillin for potential pneumonia. Did not feel that chest x-ray was needed at this time. She is to finish the antibiotic, Tylenol and Motrin for pain and fo llow-up with Dr. Hernandez and return for problems, vaginal bleeding, vomiting, or other concerns. The patient stated they understood the instructions and were discharged in satisfactory condition. DISC HARGE DIAGNOSIS: 1. Bronchitis. 2. Nonspecific abdominal pain. 3. 12 week intrauterine . Nik TOLENTINO MD [place]: [facility] Document: [id number] ALFREDO RVIEW [place], [place] Name: CONCEPCIÓN DUMONT EMERGENCY ROOM ENCOUNTER Page 2 of 2 LCN: ER DSC: 07/03/2002 [place], [place] Name: [place] DUMONT MR#: : Admit Date: [id number] 1980 07/03/2002 Doctor: Nik TOLENTINO MD [facility] ROOM ENCOUNTER Page 1 of 2 Electronically filed by Bhavya Parrish 07/12/2002 2:11 PM documented in this encounter Plan of Treatment Not on file documented as of this encounter Visit Diagnoses Diagnosis ER ENC 07/03/02- Primary documented in this encounter Additional Health Concerns Infection Onset Date Last Indicated Resolved Time Rule Out COVID-19 05/10/2020 05/10/2020 05/11/2020 7:32 PM CDT Rule Out COVID-19 08/17/2020 08/17/2020 08/18/2020 1:01 PM TOLL BRIDGE ATTENDANT documented as of this encounter Care Teams Gas Leak Inspector Relationship Specialty Start Date End Date Xiang Moreno MD [address] [place] [address] PCP - General 10/01/01 02/27/13 Dedrick Frazier [address] [address] PCP - General 02/28/13 09/10/15 [place] [address] [place] [address] PCP - General Family Practice 09/11/15 [place] [address] [place] [address] PCP - Assigned PCP 01/21/15 10/19/18 Richie Palm MD Assigned PCP 10/17/18 11/06/18 [place] [address] [place] [address] Assigned PCP 12/21/14 10/16/18 Varsha Thompsonn, MD [facility] [address] [address] Assigned PCP 11/07/18 12/25/18 [place] [address] [place] [address] Assigned PCP 12/26/18 08/01/22 [facility] [address] [place] [address] Pharmacist Pharmacist 01/11/19 10/10/20 [place] [address] [place] [address] Assigned PCP 10/11/22 12/26/22 documented as of this encounter
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
--- OUTSIDE RECORDS SUMMARY | 2024-11-28 16:11 | XMS_ITS | Encounter Summary ---
Author Organization [facility] Address [address] [place] [address]. [place] [address] Care Team Providers Care Butadiene Convertor Operator Name Role Phone Carol Lambert MD Primary Care Provider Carol Lambert MD Unavailable Rosario Ku [facility] Unavailable [phone] Carol Lambert MD Unavailable Encounter Details Date Type Department Care Team (Late st Contact Info) Description 12/22/2019 [facility] Medical Advice [address] [address] Carol Lambert MD [id number] [place] [address] Social History Tobacco Use Types Packs/Day Years Used Date Smoking Tobacco: Every Day Cigarettes 0.5 4 Smokeless Tobacco: Never Comments:less then half a pa ck Alcohol Use Standard Drinks/Week Comments Not Currently 0 (1 standard drink = 0.6 oz pur e alcohol) occ PHQ-2 Answer Date Recorded PHQ-2 Score 0 12/26/2019 Comments No Sex and Gender Information Value Date Recorded Sex Assigned at Not on file Legal Sex Female 3:21 AM FISCAL ECONOMIST Gender Identity Not on file Sexual Orientation Not on file 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 No / Unsure 12/15/2019 1:56 PM CDT documented as of this encounter Plan of Treatment Not on file documented as of this encounter Visit Diagnoses Not on filedocumented in this encounter Additional Health Concerns Infection Onset Date Last Indicated Resolved Time Rule Out COVID-19 05/10/2020 05/10/2020 05/11/2020 7:32 PM CDT Rule Out COVID-19 08/17/2020 08/17/2020 08/18/2020 1:01 PM FISCAL ECONOMIST Assessment Noted Time PHQ-9 Depression Total Score: 0 12/15/19 20 2:03 PM CDT documented as of this encounter Care Teams Butadiene Convertor Operator Relationship Specialty [place] [address] [place] [address] PCP - General Family Practice 09/11/15 [place] [address] [place] [address] Assigned PCP 12/26/18 08/01/22 Rosario Ku, [facility] [address] [place] [address] Pharmacist Pharmacist 01/11/19 10/10/20 [place] [address] [place] [address] Assigned PCP 10/11/22 12/26/22 documented as of this encounter
--- OUTSIDE RECORDS SUMMARY | 2024-11-28 16:11 | XMS_ITS | Encounter Summary ---
Author Organization [facility] Address [address] [place] [address] Care Team Providers Care Track Service Person Name Role Phone Carol Lambert MD Primary Care Provider [phone] Carol Lambert MD Unavailable Rosario Ku [facility] Unavailable [phone] Carol Lambert MD Unavailable Encounter Details Date Type Department Care Team (Late st Contact Info) Description 07/27/2019 [facility] [address] [address] Rosario Ku, [facility] [address] [place] [address] Social History Tobacco Use Types Packs/Day Years [...] on file Legal Sex Female 3:21 AM OPERATIONS RECRUITER Gender Identity Not on file Sexual Orientation [...] Out COVID-19 08/17/2020 08/17/2020 08/18/2020 1:01 PM OPERATIONS RECRUITER Assessment Noted Time PHQ-9 Depression Total Score: 0 06/28/20 19 7:04 AM OPERATIONS RECRUITER documented as of this encounter Care Teams Track Service Person Relationship Specialty [place] [address] [place] [address] PCP - General Family Practice 09/11/15 [place] [address] [place] [address] Assigned PCP 12/26/18 08/01/22 Rosario Ku, [facility] [address] [place] [address] Pharmacist Pharmacist 01/11/19 10/10/20 [place] [address] [place] [address] Assigned PCP 10/11/22 12/26/22 documented as of this encounter
--- OUTSIDE RECORDS SUMMARY | 2024-11-28 16:11 | XMS_ITS | Encounter Summary ---
Author Organization [facility] Address [address] [place] [address] Care Team Providers Care Finance Admin Name Role Phone Carol Lambert MD Primary Care Provider Carol Lambert MD Unavailable Richie Palm MD Unavailable [facility] Carol Davis MD Unavailable Varsha Thompson MD Unavailable + Carol Lambert MD Unavailable Rosario Ku [facility] Unavailable [phone] Carol Lambert MD Unavailable Encounter Details Date Type Department Care Team (Late st Contact Info) Description 02/26/2018 [facility] Medical Advice [address] [address] Haritha Barfield, LIGHT TECHNICIAN Social History Tobacco Use Types Packs/Day Years Used Date Smoking Tobacco: Every Day Cigarettes 0.5 4 Smokeless Tobacco: Never Alcohol Use Standard Drinks/Week Comments Yes 0 (1 standard drink = 0.6 oz pur e alcohol) occ Comments No Sex and Gender Information Value Date Recorded Sex Assigned at Not on file Legal Sex Female 3:21 AM DISPENSER OPERATOR Gender Identity Not on file Sexual [...] Out COVID-19 08/17/2020 08/17/2020 08/18/2020 1:01 PM DISPENSER OPERATOR Assessment Noted Time PHQ-9 Depression Total Score: 0 09/09/19 18 11:37 AM DISPENSER OPERATOR documented as of this encounter Care Teams Finance Admin Relationship Specialty [place] [address] [place] [address] PCP - General Family Practice 09/11/15 [place] [address] [place] [address] PCP - Assigned PCP 01/21/15 10/19/18 Richie Palm MD Assigned PCP 10/17/18 11/06/18 [place] [address] [place] [address] Assigned PCP 12/21/14 10/16/18 Varsha Thompson MD [facility] [address] [place] [address] Assigned PCP 11/07/18 12/25/18 [place] [address] [place] [address] Assigned PCP 12/26/18 08/01/22 [facility] [address] [place] [address] Pharmacist Pharmacist 01/11/19 10/10/20 [place] [address] [place] [address] Assigned PCP 10/11/22 12/26/22 documented as of this encounter
--- OUTSIDE RECORDS SUMMARY | 2024-11-28 16:11 | XMS_ITS | Encounter Summary ---
Author Organization [facility] Address [address] [place] [address]. [place] [address] Care Team Providers Care Retail Shift Leader Name Role Phone Carol Lambert MD Primary Care Provider Carol Lambert MD Unavailable Rosario Ku [facility] Unavailable [phone] Carol Lambert MD Unavailable Encounter Details Date Type Department Care Team (Late st Contact Info) Description 10/03/2019 [facility] [place] [address] [address] [place] Lambert [place] [id number] [place] [address] Social History Tobacco Use Types Packs/Day [...] on file Legal Sex Female 3:21 AM HEALTH PROFESSIONAL Gender Identity Not on file Sexual Orientation [...] Out COVID-19 08/17/2020 08/17/2020 08/18/2020 1:01 PM HEALTH PROFESSIONAL Assessment Noted Time PHQ-9 Depression Total Score: 0 06/28/20 7:04 AM HEALTH PROFESSIONAL documented as of this encounter Care Teams Retail Shift Leader Relationship Specialty [place] [address] [place] [address] PCP - General Family Practice 09/11/15 [place] [address] [place] [address] Assigned PCP 12/26/18 08/01/22 [facility] [address] [place] [address] Pharmacist Pharmacist 01/11/19 10/10/20 [place] [address] [place] [address] Assigned PCP 10/11/22 12/26/22 documented as of this encounter
--- OUTSIDE RECORDS SUMMARY | 2024-11-28 16:11 | XMS_ITS | Encounter Summary ---
Author Organization [facility] [place] Address [address] [place] [address] Care Team Providers Care Entry Level Marketing Representative Name Role Phone Carol Lambert MD Primary Care Provider [phone] Carol Lambert MD Unavailable Rosario Ku [facility] Unavailable [phone] Carol Lambert MD Unavailable Encounter Details Date Type Department Care Team (Late st Contact Info) Description 04/04/2020 [facility] Medical Advice [address] [address] Rosario Ku, [facility] [address] [place] [address] Social History Tobacco Use Types [...] on file Legal Sex Female 3:21 AM SLIP MAKER Gender Identity Not on file Sexual Orientation [...] Out COVID-19 08/17/2020 08/17/2020 08/18/2020 1:01 PM SLIP MAKER Assessment Noted Time PHQ-9 Depression Total Score: 0 12/15/19 20 2:03 PM CDT documented as of this encounter Care Teams Entry Level Marketing Representative Relationship Specialty [place] [address] [place] [address] PCP - General Family Practice 09/11/15 [place] [address] [place] [address] Assigned PCP 12/26/18 08/01/22 Rosario Ku, [facility] [address] [place] [address] Pharmacist Pharmacist 01/11/19 10/10/20 [place] [address] [place] [address] Assigned PCP 10/11/22 12/26/22 documented as of this encounter
--- OUTSIDE RECORDS SUMMARY | 2024-11-28 16:11 | XMS_ITS | Encounter Summary ---
Author Organization [place] Address [address] [place] [address]. [place] [address] Care Team Providers Care Biomass Power Plant Manager Name Role Phone Carol Lambert MD Primary Care Provider Carol Lambert MD Unavailable Richie Palm MD Unavailable [facility] Craol Davis MD Unavailable Varsha Thompson MD Unavailable + Carol Lambert MD Unavailable Rosario Ku [facility] Unavailable Carol Lambert MD Unavailable Encounter Details Date Type Department Care Team (Late st Contact Info) Description 10/27/2016 [facility] [address] [place] [address] Carol Lambert [place] [id number] [place] [address] Social History Tobacco Use Types Packs/Day Years Used Date Smoking Tobacco: Every Day Cigarettes 0.5 4 Smokeless Tobacco: Never Alcohol Use Standard Drinks/Week Comments Yes 0 (1 standard drink = 0.6 oz pur e alcohol) occ Comments No Sex and Gender Information Value Date Recorded Sex Assigned at Not on file Legal Sex Female 3:21 AM HEAD BANQUET WAITER/WAITRESS Gender Identity Not on file Sexual Orientation [...] Out COVID-19 08/17/2020 08/17/2020 08/18/2020 1:01 PM HEAD BANQUET WAITER/WAITRESS Assessment Noted Time PHQ-9 Depression Total Score: 7 10/02/19 17 7:16 AM HEAD BANQUET WAITER/WAITRESS documented as of this encounter Care Teams Biomass Power Plant Manager Relationship Specialty [place] [address] [place] [address] PCP - General Family Practice 09/11/15 [place] [address] [place] [address] PCP - Assigned PCP 01/21/15 10/19/18 Richie Palm MD Assigned PCP 10/17/18 11/06/18 [place] [address] [place] [address] Assigned PCP 12/21/14 10/16/18 Varsha Thompson MD [facility] [address] [address] [place] [address] Assigned PCP 11/07/18 12/25/18 [place] [address] [place] [address] Assigned PCP 12/26/18 08/01/22 Rosario Ku, [facility] [address] [place] [address] Pharmacist Pharmacist 01/11/19 10/10/20 [place] [address] [place] [address] Assigned PCP 10/11/22 12/26/22 documented as of this encounter
--- OUTSIDE RECORDS SUMMARY | 2024-11-28 16:11 | XMS_ITS | Clinical Summary ---
Author Organization [employer] [facility] Address [address] [place] [address] Care Team Providers Care Wellness Director Name Role Phone Chalo Grier MD Primary Care Provider Unavailabl e Allergies No known active allergies Medications ondansetron (ZOFRAN ODT) 4 mg disintegrating tabletIndications: Acute nonintractable headache, unspecified headache type,Concussion with loss of consciousness of 30 minutes or less, initial encounter Place 1 Tablet (4 mg) on the tongue every 8 hours if needed for Nausea/Vomiting. 15 Tablet 10/06/19 23 Active ibuprofen (ADVIL; MOTRIN) 600 mg tabletIndications: Acute nonintractable headache, unspecified headache type,Concussion with loss of consciousness of 30 minutes or less, initial encounter Take 1 Tablet (600 mg) by mouth every 6 hours if needed for Pain. Maximum of 3200 mg in 24 hours. 30 Tablet 10/06/19 23 Active acetaminophen (TYLENOL EXTRA STRGTH) 500 mg tabletIndications: Acute nonintractable headache, unspecified headache type Take 1-2 Tablets (500-1,000 mg) by mouth every 6 hours if needed for Pain or Headache. Max acetaminophen dose: 4000mg in 24 hrs. 30 Tablet 10/06/19 23 Active lidocaine (AsperFlex, lidocaine,) 4 % topical patchIndications:M uscle pain Apply to intact skin to cover most painful area for max 12hr per 24hr period. 15 Patch 10/06/19 23 Active Social History Tobacco Use Types Packs/Day Years Used Date Smoking Tobacco: Every Day Smokeless Tobacco: Never Comments:trying to quit 1 ci g daily Alcohol Use Standard Drinks/Week Comments No 0 (1 standard drink = 0.6 oz pur e alcohol) Comments No Sex and Gender Information Value Date Recorded Sex Assigned at Not on file Legal Sex Female 6:26 AM INSURANCE AUDITOR Gender Identity Not on file Sexual Orientation Not on file Obstetrics History Last Filed Vital Signs Vital Sign Reading Time Taken Comments Blood Pressure 147/86 10/06/2022 5:01 PM INSURANCE AUDITOR Pulse 91 10/06/2022 5:01 PM INSURANCE AUDITOR Temperature 36.8 C (98.2 F) 10/06/2022 5:01 PM INSURANCE AUDITOR Respiratory Rate 18 10/06/2022 5:01 PM INSURANCE AUDITOR Oxygen Saturation 99% 10/06/2022 5:01 PM INSURANCE AUDITOR Inhaled Oxygen Concentration - - Weight 82.6 kg (182 lb) 10/06/2022 5:01 PM INSURANCE AUDITOR Height 157.5 cm (5' 2) 10/06/2022 5:01 PM INSURANCE AUDITOR Body Mass Index 33.29 10/06/2022 5:01 PM INSURANCE AUDITOR Plan of Treatment Health Maintenance Due Date Last Done Comments Tdap 1992 Depression screening for age 12+ 1993 HIV for age 15-65 1996 BMI (ht and wt on same day) for age 18+ 1999 Hepatitis C screening for ag e 18-79 1999 Tetanus booster 2001 Pap test for age 21-65 10/10/2014 2, 03/09/2009, 02/22/2009 COVID-19 vaccine series (2023- season) 2024 Influenza Vaccine (Season Ended) 2025 Pneumococcal series for age 6-49 Aged Out No longer eligible b ased on patient's age to complete this topic Procedures Procedure Name Priority Date/Time Associated Diagnosis Comments GYNECOLOGICAL PANEL Timed 10/10/2011 8 :30 AM INSURANCE AUDITOR from Last 3 Months or Most Recently Relevant to Health Maintenance Results * GYNECOLOGICAL PANEL (10/10/2011 8:30 AM INSURANCE AUDITOR) CYTOLOGY CYTOPATHOLOGY REPORT [facility] Status: Final Status [id number] CLINICAL INFORMATION Last Date of LMP :09/22/11 Last Pap Date :?2009 Last Pap Result :NORMAL [place]/Bx done today :No HPV Request :HPV if ASCUS SPECIMEN SOURCE :Cervical/vaginal ThinPrep Vial, screening SPECIMEN ADEQUACY :Satisfactory for evaluation Endocervical component present. INTERPRETATION/RES ULT Negative for intraepithelial lesion or malignancy (NIL) Cytology 1st Screener :farheen Signed by :farheen This specimen was screened by the FDA approved ThinPrep Imaging System and manually reviewed. NOTE: The Pap test is a screening technique, not a diagnostic procedure. It is used primarily to screen for squamous cancers and precursor lesions. Published studies have shown that it is subject to both false negative and false positive results. The pap test should not be used as the sole means to diagnose or exclude pre-malignant and malignant lesions. COLLECTED:10/10/11 ACCESSIONED: 10/13/11 SIGNED: 10/15/11 [facility] [place] CODE NIL [facility] 10/10/2011 8:30 AM INSURANCE AUDITOR 10/13/2011 8:30 AM INSURANCE AUDITOR us Win FLOOD PATHOLOGY/CYTOLOGY Final Result [facility] INTERNAL ZIP [id number] [address] from Last 3 Months or Most Recently Relevant to Health Maintenance [place] [address] [facility] [address] [id number] Care Teams Wellness Director Relationship Specialty Start Date End Date Chalo Grier MD PCP - General 05/12/08
--- OUTSIDE RECORDS SUMMARY | 2024-11-28 16:11 | XMS_ITS | Encounter Summary ---
Author Organization [facility] Address [address] [place] [address] Care Team Providers Care Channel Program Manager Name Role Phone Xiang Moreno MD Primary Care Provider [phone] Dedrick Frazier Primary Care Provider [phone] Carol Lambert MD Primary Care Provider Carol Lambert MD Unavailable Richie Palm MD Unavailable Carol Salmon MD Unavailable Varsha Thompson MD Unavailable + Carol Lambert MD Unavailable Rosario Ku [facility] Unavailable [phone] Carol Lambert MD Unavailable Encounter Details Date Type Department Care Team (Late st Contact Info) Description 05/11/[address] [address] Jackie Hernandez MD NO INFO FOUND CHANDNI CRANE [id number] Social History Tobacco Use Types Packs/Day Years Used Date Smoking Tobacco: Every Day Cigarettes 0.5 4 Smokeless Tobacco: Never Comments:less then half a pa ck Alcohol Use Standard Drinks/Week Comments Yes 0 (1 standard drink = 0.6 oz pur e alcohol) occ Comments No Sex and Gender Information Value Date Recorded Sex Assigned at Not on file Legal Sex Female 3:21 AM HUMAN RESOURCES RECRUITER Gender Identity Not on file Sexual [...] 05/10/2020 05/11/2020 7:32 PM CDT Rule Out COVID-08/17/2020 08/17/2020 08/18/2020 1:01 PM HUMAN RESOURCES RECRUITER documented as of this encounter Care Teams Channel Program Manager Relationship Specialty Start Date End Date Xiang Moreno MD [address] [place] [id number] PCP - General 10/01/01 02/27/13 Dedrick Frazier [address] [address] PCP - General 02/28/13 09/10/15 [place] [address] [place] [address] PCP - General Family Practice 09/11/15 [place] [address] [place] [address] PCP - Assigned PCP 01/21/15 10/19/18 Richie Palm MD Assigned PCP 10/17/18 11/06/18 [place] [address] [place] [address] Assigned PCP 12/21/14 10/16/18 Varsha Thompson MD ARISE [address] [address] Assigned PCP 11/07/18 12/25/18 [place] [address] [place] [address] Assigned PCP 12/26/18 08/01/22 Rosario Ku, [facility] [address] [place] [address] Pharmacist Pharmacist 01/11/19 10/10/20 [place] [address] [place] [address] Assigned PCP 10/11/22 12/26/22 documented as of this encounter
[2024-11-28 16:16] VITALS: BP 136/67; PULSE 87; RESP 18; TEMP 36.7; O2SAT 99; BMI 28.3
--- NOTE | 2024-11-28 17:07 | ED_ITS ---
HPI - General Adult General Chief complaint: Unspecified Complaint, Adult Stated complaint: Numbness in Hand, Lips and Tongue Time Seen by Provider: 11/28/24 16:46 History of Present Illness HPI narrative: This 44-year-old female comes in stating that she has had some tingling in her hands bilaterally for the past 3 or 4 days. She has also had some tingling sensation in her tongue and in her lips bilaterally. She does not report any weakness. She called to the clinic and was instructed to come here for evaluation. Related Data Previous Rx's ?Medication ?Instructions ?Recorded blood sugar diagnostic (Contour #100 ea 07/27/23 Next Test Strips) semaglutide 1 mg/dose (4 mg/3 mL) 1 mg (0.75 mL) subcut QWEEK #9 mL 11/02/24 subcutaneous pen injector (Ozempic) ketorolac 10 mg tablet 10 mg PO TID 5 days #15 tabs 11/28/24 methylprednisolone 4 mg tablets in See Rx Instructions PO .COMPLEX 11/28/24 a dose pack (Medrol (Kenneth)) #21 ea Allergies Allergy/AdvReac Type Severity Reaction Status Date / Time bee venom protein (honey bee) Allergy Severe swelling Verified 11/28/24 16:22 acetaminophen Allergy Intermediate Rash Verified 11/28/24 16:22 dulaglutide (From Trulicity) Allergy Intermediate Difficulty Verified 11/28/24 16:22 Breathing gadodiamide Allergy Intermediate Hives Verified 11/28/24 16:22 hydrocodone Allergy Intermediate itchy face Verified 11/28/24 16:22 Iodinated Contrast Media Allergy Intermediate Hives Verified 11/28/24 16:22 penicillin V Allergy Intermediate Swelling Verified 11/28/24 16:22 of the Eye tramadol Allergy Mild itch Verified 11/28/24 16:22 Coconut Fatty Acids Allergy Unknown Uncoded 10/26/24 11:59 Review of Systems Status of ROS: Reports: 10 or more systems reviewed and unremarkable except as noted in History and below Narrative: Constitutional: No fevers, no weight gain or loss. Eyes: No discharge. No vision changes. HENT: No congestion, no sore throat, no ear pain. Cardiovascular: No chest pain, no palpitations. Respiratory: No shortness of breath, no wheezes, no cough. Gastrointestinal: No abdominal pain, no vomiting, no diarrhea. Genitourinary: No dysuria, no hematuria. Musculoskeletal: Normal range of motion. Skin: No rashes, no pruritis. Neurological: No dizziness, weakness, speech change. Sensory change as described above. Endo/Heme/Allergies: No bruising or bleeding. No polydipsia. Pysch: no suicidality, no anxiety, no insomnia. All other systems reviewed and are negative. [facility] Medical History Diverticulitis ?K57.92 - Diverticulitis of intestine, part unspecified, without perforation or abscess without bleeding (ICD-10) COVID ?U07.1 - COVID-19 (ICD-10) Calculus of kidney ?N20.0 - Calculus of kidney (ICD-10) History of anaphylactic shock (10/25/13) ?Z87.892 - Personal history of anaphylaxis (ICD-10) Surgical History Status post right foot surgery ?Z98.890 - Other specified postprocedural states (ICD-10) History of tubal ligation (04/05/13) ?Z98.51 - Tubal ligation status (ICD-10) History of nasal septoplasty (04/05/13) ?Z98.890 - Other specified postprocedural states (ICD-10) History of hysterectomy ?Z90.710 - Acquired absence of both cervix and uterus (ICD-10) Family History Family/Other Coronary artery disease Stroke Diabetes High blood pressure Maternal Grandmother Ovarian cancer Paternal Grandmother Ovarian cancer Social History Narrative: does not drink alcohol, does not use illicit drugs, smoker 0.5 packs per day Smoking Status: Current every day smoker How often do you have a drink containing alcohol: never How often do you have six or more drinks on one occasion: Never AUDIT-C Alcohol total score: 0 Non-prescribed substance use: denies use Exam Narrative: Exam Narrative: Constitutional: Well-developed, well-nourished, no acute distress. HEENT: Normocephalic, atraumatic. Neck: Normal range of motion. Nontender. Supple. Heart: Regular. No murmurs. Normal rate. Intact distal pulses. Lungs: Clear to auscultation. No chest discomfort. No wheezes, rhonchi, or rales. Abdomen: Normal bowel sounds. Nontender. No rebound tenderness. Genitalia: Deferred. Back: No midline tenderness. Normal range of motion. Extremities: Normal range of motion. No injury. Skin: Intact. No rash. Warm. No erythema or pallor. Neurologic: No weakness. Alert and oriented. No facial asymmetry. Tongue is midline. [id number] is normal. No pronator drift. Radio Mechanic Apprentice strength is equal bilaterally. Able to raise each leg from the bed. Phalen's test and Tinel's sign are mildly positive bilaterally. She is feeling tingling in the distribution of the median nerve bilaterally and has no other tingling sensation outside of the distribution of this nerve. Psychiatric: No suicidality. No anxiety or depression. No insomnia. Nursing notes and vitals signs are reviewed. Const: Vital Signs, click to edit/add: Vital Signs - 24 hr 11/28/24 16:16 Temperature 98.1 F Pulse Rate [Right Pulse Oximeter] 87 Respiratory Rate 18 Blood Pressure [Ri ght Upper Arm] 136/67 Pulse Oximetry 99 Oxygen Delivery Me thod Room Air Course Vital Signs Vital signs: Initial Vital Signs Temperature 98.1 F 11/28/24 16:16 Temperature Source Temporal Artery Scan 11/28/24 16:16 Pulse Rate 87 11/28/24 16:16 Pulse Rhythm Regular 11/28/24 16:16 Pulse Strength 3+ Normal 11/28/24 16:16 Respiratory Rate 18 11/28/24 16:16 Blood Pressure 136/67 11/28/24 16:16 Blood Pressure Mean 90 11/28/24 16:16 Blood Pressure Position Sitting 11/28/24 16:16 Pulse Oximetry 99 11/28/24 16:16 Oxygen Delivery Method Room Air 11/28/24 16:16 Vital Signs Temperature 98.1 F 11/28/24 16:16 Pulse Rate 87 11/28/24 16:16 Respiratory Rate 18 11/28/24 16:16 Blood Pressure 136/67 11/28/24 16:16 Pulse Oximetry 99 11/28/24 16:16 Oxygen Delivery Method Room Air 11/28/24 16:16 Temperature 98.1 F 11/28/24 16:16 Pulse Rate 87 11/28/24 16:16 Respiratory Rate 18 11/28/24 16:16 Blood Pressure 136/67 11/28/24 16:16 Pulse Oximetry 99 11/28/24 16:16 Oxygen Delivery Method Room Air 11/28/24 16:16 Medical Decision Making MDM Narrative Medical decision making narrative: This patient comes in with report of tingling sensations as described above. She is not showing any signs or symptoms of a central process. There is some worsening symptoms when performing Phalen's test and Tinel's sign suggesting some pressure on the median nerve perhaps at the carpal tunnel. As for the tingling sensation her mouth and tongue of course this would not apply there. The patient's exam is normal otherwise. She has normal vital signs. She states that she did have a CT scan of her head done somewhat recently. I did discuss lab and imaging options and in a process of shared decision making these were declined for now. I did recommend using a wrist brace if needed. She states that she does work using her hands frequently. I did prescribe Toradol and Medrol Dosepak. The patient is taking Ozempic and has a diagnosis of type 2 diabetes. She understands that this will make her blood glucose go up for a time. Discharge Plan Discharge Clinical Impression: Carpal tunnel syndrome Patient Disposition: Home, Self-Care Condition: Stable Additional Instructions: Take medication as needed and directed. Consider using wrist brace or splint as needed for symptomatic relief. Follow up with MD return if worsening. Prescriptions: New ketorolac 10 mg tablet 10 mg PO TID 5 Days Qty: 15 0RF methylprednisolone [Medrol (Kenneth)] 4 mg tablets,dose pack See Rx Instructions .ROUTE .COMPLEX Qty: 21 0RF Rx Instructions: orally per package directions No Action (DME) Contour Next Test Strips Strip See Rx Instructions .Route Qty: 100 3RF Rx Instructions: As directed Ozempic 1 mg/dose (4 mg/3 mL) pen injector 1 mg subcut QWEEK Qty: 9 1RF Rx Instructions: 1mg once weekly Follow Up/Referrals: Maricel Johnson PA-C [Primary Care Provider] - Stand Alone Forms: [facility] Info Instructions
--- OUTSIDE RECORDS SUMMARY | 2024-11-28 17:12 | XMS_ITS | Clinical Summary ---
Author Organization [place] Address [address] [place] [address] Care Team Providers Care Quilting Machine Operator Name Role Phone Carol Lambert MD Primary Care Provider [phone] Allergies Active Allergy Reactions Criticality Noted Date Comments Amoxicillin Itching 07/28/2016 Codeine Itching 07/28/2016 Contrast Dye Hives 06/18/2009 Penicillins Rash Low 02/27/2013 Hydrocodone-Acetaminophen Hives 02/27/2013 Medications metFORMIN (GLUCOPHAGE XR) 500 MG 24 hr tablet 06/26/2022 Active cyclobenzaprine (FLEXERIL) 10 MG tablet 08/21/2022 Active Active Problems Patient Care Coordination No te Formatting of this note migh t be different from the original. [email or web address] Problem Noted Date Diagnosed Date Restless leg syndrome 06/27/2019 Assessment & Plan (06/27/2019 10:24 AM HEAD AUTOMATIC SAWYER): Feels leg spasms at night Start Requip Obesity (BMI 35.0-39.9) with comorbidity 019 Obesity 10/10/2016 Attention deficit hyperactiv ity disorder (ADHD), combined type 08/21/2015 Type 2 diabetes mellitus without complication Assessment & Plan (06/27/2019 10:25 AM HEAD AUTOMATIC SAWYER): Outpatient blood sugars 150-160 Check A1C today Hyperlipidemia LDL goal <130 01/12/2015 Chronic abdominal pain 01/12/2015 Assessment & Plan (06/27/2019 10:27 AM HEAD AUTOMATIC SAWYER): Recent ER visit diarrhea 06/20/19 Using metamucil which is working well to manage stools Menorrhagia 01/12/2015 Nephrolithiasis 01/12/2015 Pyelonephritis 01/12/2015 Overview (01/12/2015): S/p scarring of the R kidney. CARDIOVASCULAR SCREENING; LDL GOAL LESS THAN 160 06/16/2010 Assessment & Plan (06/27/2019 10:28 AM HEAD AUTOMATIC SAWYER): Trying to eat healthier diet - worried about having stroke/heart attack Check fasting lipids today Diabetes mellitus of mother, complicating , childbirth, or the puerperium, unspecified as to episode of care(648.00) 01/13/2003 Other ureteric obstruction 11/28/2002 High-risk 11/28/2002 Overview (05/17/2015): Problem list name updated by automated process. 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 Not on file Not on file Last Filed Vital Signs Vital Sign Reading Time Taken Comments Blood Pressure 108/74 08/24/2022 5:51 PM HEAD AUTOMATIC SAWYER Pulse 110 08/24/2022 5:51 PM HEAD AUTOMATIC SAWYER Temperature 36.8 C (98.2 F) 08/24/2022 5:51 PM HEAD AUTOMATIC SAWYER Respiratory Rate 16 08/17/2020 10:03 AM HEAD AUTOMATIC SAWYER Oxygen Saturation 97% 08/24/2022 5:51 PM HEAD AUTOMATIC SAWYER Inhaled Oxygen Concentration - - Weight 86.2 kg (190 lb) 08/17/2020 10:03 AM HEAD AUTOMATIC SAWYER Height 157.5 cm (5' 2) 08/25/2019 5:17 PM HEAD AUTOMATIC SAWYER Body Mass Index 34.75 08/25/2019 5:17 PM HEAD AUTOMATIC SAWYER Plan of Treatment Health Maintenance Due Date [...] BASIC METABOLIC PANEL STAT 08/22/2019 7:12 AM HEAD AUTOMATIC SAWYER LIPID REFLEX TO DIRECT LDL PANEL Routine 06/27/2019 10:55 AM HEAD AUTOMATIC SAWYER Hyperlipidemia LDL goal <130 HEMOGLOBIN A1C Routine 06/27/2019 10:55 AM HEAD AUTOMATIC SAWYER Type 2 diabetes mellitus without complication, without [...] & 2 ANTIBODY Routine 08/01/2002 12:27 PM HEAD AUTOMATIC SAWYER Supervis Other Normal Preg from Last 3 Months or Most Recently Relevant to Health Maintenance Results * Eye Exam - HIM Scan (07/04/2021) RETINOPATHY UNKNOWN Narrative Shasta Chavez - 07/04/2021 Eye exam with ophthalmology on this date: 07-04-21 Leena Ratliff MA Abstract Quality Initiatives us Patient Reported OTHER Edited Result - Final * (ABNORMAL) Basic metabolic panel (08/22/2019 7:12 AM HEAD AUTOMATIC SAWYER) Sodium 137 133 - 144 mmol/L 08/22/2019 7:[address] [facility] Potassium 3.8 3.4 - 5.3 mmol/L 08/22/2019 7:[address] [facility] Chloride 104 94 - 109 mmol/L 08/22/2019 7:[address] [facility] Carbon Dioxide 28 20 - 32 mmol/L 08/22/2019 7:[address] [facility] Anion Gap 5 3 - 14 mmol/L 08/22/2019 7:[address] [facility] Glucose 184(H) 70 - 99 mg/dL 08/22/2019 7:[address] [facility] Urea Nitrogen 8 7 - 30 mg/dL 08/22/2019 7:[address] [facility] Creatinine 0.59 0.52 - 1.04 mg/dL 08/22/2019 7:[address] [facility] GFR Estimate >90 >60 mL/min/{1. 73_m2} 08/22/2019 7:[address] [facility] Comment: Non GFR Calc Starting 08/03/2018, serum creatinine based estimated GFR (eGFR) will be calculated using the Chronic Kidney Disease Epidemiology Collaboration (CKD-EPI) equation. GFR Estimate If Black >90 >60 mL/min/{1. 73_m2} 08/22/2019 7:[address] [facility] Comment: GFR Calc Starting 08/03/2018, serum creatinine based estimated GFR (eGFR) will be calculated using the Chronic Kidney Disease Epidemiology Collaboration (CKD-EPI) equation. Calcium 9.3 8.5 - 10.1 mg/dL 08/22/2019 7:[address] [facility] Blood specimen (specimen) 08/22/2019 7:12 AM HEAD [employer]OM[employer]IC SAWYER 08/22/2019 7:16 AM HEAD AUTOMATIC SAWYER us Cyndi Anderson MD LAB - BLOOD ORDERABLES Final R esult [facility] [address] [place] [address], [facility] [phone] * (ABNORMAL) Lipid panel reflex to direct LDL Fasting (06/27/2019 10:55 AM HEAD AUTOMATIC SAWYER) Cholesterol 226(H) <200 mg/dL 06/28/2019 8:31 AM [facility]IC [facility] Comment:Desirable: <200 mg/d l Triglycerides 205(H) <150 mg/dL 06/28/2019 8:31 AM [facility] [employer]IC [facility] Comment: Borderline high: 150-199 mg/dl High: 200-499 mg/dl Very high: >499 mg/dl Fasting specimen HDL Cholesterol 38(L) >49 mg/dL 9 8:37 AM HEAD AUTOMATIC SAWYER [facility] LDL Cholesterol Calculated 147(H) <100 mg/dL 06/28/2019 8:37 AM [facility] [employer]OM[employer]IC [facility]WY[facility] Comment: Above desirable: 100-129 mg/dl Borderline High: 130-159 mg/dL High: 160-189 mg/dL Very high: >189 mg/dl Non HDL Cholesterol 188(H) <130 mg/dL 06/28/2019 8:37 AM [facility] [employer]OMATIC SAWY[facility] Comment: Above Desirable: 130-159 mg/dl Borderline high: 160-189 mg/dl High: 190-219 mg/dl Very high: >219 mg/dl Blood specimen (specimen) 06/27/2019 10:55 AM HEAD [employer]OMATIC SAWYER 06/27/2019 10:56 AM HEAD AUTOMATIC SAWYER us Carol Lambert MD LAB - BLOOD ORDERABLES Final Res ult [facility] [address] [place] [address] * (ABNORMAL) HEMOGLOBIN A1C (06/27/2019 10:55 AM HEAD AUTOMATIC SAWYER) Hemoglobin A1C 6.8(H) 0 - 5.6 % 06/27/2019 11:05 AM HEAD AUTOMATIC SAWYER [facility] Comment: Normal <5.7% Prediabetes 5.7-6.4% Diabetes 6.5% or higher - adopted from ADA consensus guidelines. Blood specimen (specimen) 06/27/2019 10:55 AM HEAD AUTOMATIC SAWYER 06/27/2019 10:56 AM HEAD AUTOMATIC SAWYER Carol Lambert MD LAB - BLOOD ORDERABLES Final Res ult Performing Organization Address [facility]/ZIP Co de Phone Number [facility] [address] [place] [address] * Albumin Random Urine Quantitative with Creat Ratio (12/15/2018 11:41 AM CDT) Creatinine Urine 126 mg/dL 12/16/2018 8:19 AM CDT [facility] Albumin Urine mg/L 16 mg/L 12/16/2018 9:55 AM CDT [facility] Albumin Urine mg/g Cr 12.30 0 - 25 mg/g Cr 12/16/2018 9:55 AM CDT [facility] Urine specimen (specimen) 12/15/2018 11:41 AM CDT 12/15/2018 11:42 AM CDT Carol Lambert MD LAB - URINE ORDERABLES Final Res ult Performing Organization Address City/[facility]/ZIP Co de Phone Number [facility] [address] [place] [address] [facility] [address] [address] [phone] * PAP Smear - HIM Patient Reported (08/17/2016) PAP Smear - HIM Patient Reported Negative EXTERNAL LAB 08/17/2016 Narrative EXTERNAL LAB - 08/17/2016 Patient Reported: Pap smear done on this date: 08/2016 (approximately), by this group: aircraft navigator Specialists, results were normal. us Patient Reported LABORATORY Final Result EXTERNAL LAB External Lab * FOOT EXAM (07/13/2015) Carol Whitney MD - 07/13/2015 Done, normal. Carol Lambert MD PROCEDURES Final Result * HPV High Risk Types DNA Cervical (01/12/2015 9:40 AM CDT) HPV 16 DNA Negative NEG [facility] HPV 18 DNA Negative NEG [facility] Other HR HPV Negative NEG [facility] Final Diagnosis This patient's sample is negative for HPV DNA. The [place] [employer] (ACOG) recommends [...] and its performance characteristics determined by the [facility], Molecular Diagnostics Laboratory. It has not been cleared or approved by the FDA. The laboratory is regulated under CLIA as qualified to perform high-complexity testing. This test is used for clinical purposes. It should not be regarded as investigational or for research. [facility] Specimen Description Cervical Cells [id number] [facility] 01/12/2015 9:40 AM CDT 01/12/2015 9:50 AM CDT Carol Lambert MD LAB - BLOOD ORDERABLES Final Res ult [facility] [address] [place] [address] * HIV-1/HIV-2, SCREEN (08/01/2002 12:27 PM HEAD AUTOMATIC SAWYER) HIV 1&2 Antibody Negative NEG [facility] 08/01/2002 12:2 7 PM HEAD AUTOMATIC SAWYER 08/01/2002 12:32 PM HEAD AUTOMATIC SAWYER us Enrique Garcia MD LABORATORY Final Result Performing Organization Address City/[facility]/ZIP Co de Phone Number [facility] [address] [place] [address] from Last 3 Months or Most Recently Relevant to Health Maintenance Insurance [place] [facility] * Guarantor: Concepción Ovalle Account Type Relation to Patient Date of Phone Billing Address Medication Therapy Self 1980 [address] [place] [address] Advance Directives For more information, please contact: [phone] * Full Code (Latest Code Status on File) Date Activated Date Inactivated Comments 02/28/2013 2:14 PM 11/07/2018 4:23 PM Care Teams Quilting Machine Operator Relationship Specialty [place] [address] [place] [address] PCP - General Family Practice 09/11/15
--- OUTSIDE RECORDS SUMMARY | 2024-11-28 17:13 | XMS_ITS | Encounter Summary ---
Author Organization [place] Address [address] [place] [address] Care Team Providers Care Porcelain Enameler Name Role Phone Xiang Moreno MD Primary Care Provider [phone] Dedrick Frazier Primary Care Provider [phone] Carol Lambert MD Primary Care Provider Carol Lambert MD Unavailable Richie Palm MD Unavailable Carol Salmon MD Unavailable Varsha Thompson MD Unavailable + Carol Lambert MD Unavailable Rosario Ku [facility] Unavailable Carol Lambert MD Unavailable Encounter Details Date Type Department Care Team (Late st Contact Info) Description 05/11/[address] [address] Jackie Hernandez MD NO INFO FOUND [place] CRANE [address] Social History Tobacco Use Types Packs/Day Years Used Date Smoking Tobacco: Every Day Cigarettes 0.5 4 Smokeless Tobacco: Never Comments:less then half a pa ck Alcohol Use Standard Drinks/Week Comments Yes 0 (1 standard drink = 0.6 oz pur e alcohol) occ Comments No Sex and Gender Information Value Date Recorded Sex Assigned at Not on file Legal Sex Female 3:21 AM RRTS Gender Identity Not on file Sexual Orientation [...] Rule Out COVID-08/17/2020 08/17/2020 08/18/2020 1:01 PM RRTS documented as of this encounter Care Teams Porcelain Enameler Relationship Specialty Start Date End Date Xiang Moreno MD [address] [place] [address] PCP - General 10/01/01 02/27/13 Dedrick Frazier [address] [address] PCP - General 02/28/13 09/10/15 [place] [address] [place] [address] PCP - General Family Practice 09/11/15 [place] [address] [place] [address] PCP - Assigned PCP 01/21/15 10/19/18 Richie Palm MD Assigned PCP 10/17/18 11/06/18 [place] [address] [place] [address] Assigned PCP 12/21/14 10/16/18 Varsha Thompson MD [place] [address] [address] Assigned PCP 11/07/18 12/25/18 [place] [address] [place] [address] Assigned PCP 12/26/18 08/01/22 Rosario Ku, [facility] [address] [place] [address] Pharmacist Pharmacist 01/11/19 10/10/20 [place] [address] [place] [address] Assigned PCP 10/11/22 12/26/22 documented as of this encounter
--- OUTSIDE RECORDS SUMMARY | 2024-11-28 17:13 | XMS_ITS | Encounter Summary ---
Author Organization [place] Address [address] [place] [address] Care Team Providers Care Tuckpointer Cleaner Caulker Name Role Phone Xiang Moreno MD Primary Care Provider + [phone] Dedrick Frazier Primary Care Provider [phone] Carol Lambert MD Primary Care Provider [phone] Carol Lambert MD Unavailable Richie Palm MD Unavailable Carol Salmon MD Unavailable Varsha Thompson MD Unavailable + Carol Lambert MD Unavailable Rosario Ku [facility] Unavailable [phone] Carol Lambert MD Unavailable Encounter Details Date Type Department Care Team (Late st Contact Info) Description 10/17/2008 Office Visit-[facility] [address] [place] [address] Unknown, Doctor, Social History Tobacco Use Types Packs/Day Years Used Date Smoking Tobacco: Every Day Cigarettes 0.1 4 Comments:pt smoking approx 2 cigs per day Alcohol Use Standard Drinks/Week Comments No 0 (1 standard drink = 0.6 oz pur e alcohol) Comments No Sex and Gender Information Value Date Recorded Sex Assigned at Not on file Legal Sex Female 3:21 AM APPLICATIONS SYSTEMS ANALYST Gender Identity Not on file Sexual Orientation Not on file 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 - Tachycardia, 785.0 ALLERGIES NKA MEDICATIONS (prior to changes made today) 1. Albuterol Sulfate 90 mcg/inhaler, Take as Directed CHIEF COMPLAINTS fu echo, event monitor, stress ekg HISTORY OF PRESENT ILLNESS Ms. Ovalle is a delightful 28-year-old female who presents to the [facility] today for a follow-up visit [...] Out COVID-19 08/17/2020 08/17/2020 08/18/2020 1:01 PM APPLICATIONS SYSTEMS ANALYST documented as of this encounter Care Teams Tuckpointer Cleaner Caulker Relationship Specialty Start Date End Date Xiang Moreno MD [address] [place] [address] PCP - General 10/01/01 02/27/13 Dedrick Frazier [facility] [address] [place] [address] PCP - General 02/28/13 09/10/15 [place] [address] [place] [address] PCP - General Family Practice 09/11/15 [place] [address] [place] [address] PCP - Assigned PCP 01/21/15 10/19/18 Richie Palm MD Assigned PCP 10/17/18 11/06/18 [place] [address] [place] [address] Assigned PCP 12/21/14 10/16/18 Varsha Thompson MD [facility] [address] [place] [address] Assigned PCP 11/07/18 12/25/18 [place] [address] [place] [address] Assigned PCP 12/26/18 08/01/22 Rosario Ku, [facility] [address] [place] [address] Pharmacist Pharmacist 01/11/19 10/10/20 [place] [address] [place] [address] Assigned PCP 10/11/22 12/26/22 documented as of this encounter
--- OUTSIDE RECORDS SUMMARY | 2024-11-28 17:13 | XMS_ITS | Encounter Summary ---
Author Organization [place] Address [address] [place] [address] Care Team Providers Care Marketing Project Manager Name Role Phone Carol Lambert MD Primary Care Provider [phone] Carol Lambert MD Unavailable Richie Palm MD Unavailable [facility] Carol Davis MD Unavailable Varsha Thompson MD Unavailable + Carol Lambert MD Unavailable Rosario Ku [facility] Unavailable [phone] Carol Lambert MD Unavailable Encounter Details Date Type Department Care Team (Late st Contact Info) Description 02/26/2018 [facility] Medical Advice [address] [address] Haritha Barfield, BI TRI OPERATOR Social History Tobacco Use Types Packs/Day Years Used Date Smoking Tobacco: Every Day Cigarettes 0.5 4 Smokeless Tobacco: Never Alcohol Use Standard Drinks/Week Comments Yes 0 (1 standard drink = 0.6 oz pur e alcohol) occ Comments No Sex and Gender Information Value Date Recorded Sex Assigned at Not on file Legal Sex Female 3:21 AM CAR JOCKEY Gender Identity Not on file Sexual Orientation [...] Out COVID-19 08/17/2020 08/17/2020 08/18/2020 1:01 PM CAR JOCKEY Assessment Noted Time PHQ-9 Depression Total Score: 0 09/09/19 18 11:37 AM CAR JOCKEY documented as of this encounter Care Teams Marketing Project Manager Relationship Specialty [place] [address] [place] [address] PCP - General Family Practice 09/11/15 [place] [address] [place] [address] PCP - Assigned PCP 01/21/15 10/19/18 Richie Palm MD Assigned PCP 10/17/18 11/06/18 [place] [address] [place] [address] Assigned PCP 12/21/14 10/16/18 Varsha Thompson MD [facility] [address] [place] [address] Assigned PCP 11/07/18 12/25/18 [place] [address] [place] [address] Assigned PCP 12/26/18 08/01/22 [facility] [address] [place] [address] Pharmacist Pharmacist 01/11/19 10/10/20 [place] [address] [place] [address] Assigned PCP 10/11/22 12/26/22 documented as of this encounter
--- OUTSIDE RECORDS SUMMARY | 2024-11-28 17:13 | XMS_ITS | Encounter Summary ---
Author Organization [place] Address [address] [place] [address]. [place] [address] Care Team Providers Care Equipment Superintendent Name Role Phone Carol Lambert MD Primary Care Provider Carol Lambert MD Unavailable Rosario Ku [facility] Unavailable [phone] Carol Lambert MD Unavailable Encounter Details Date Type Department Care Team (Late st Contact Info) Description 10/03/2019 [facility] Medical Advice [address] [address] Carol Lambert [place] [id number] [place] [address] Social History Tobacco Use Types Packs/Day [...] on file Legal Sex Female 3:21 AM SURVEILLANCE OPERATOR Gender Identity Not on file Sexual [...] Out COVID-19 08/17/2020 08/17/2020 08/18/2020 1:01 PM SURVEILLANCE OPERATOR Assessment Noted Time PHQ-9 Depression Total Score: 0 06/28/20 7:04 AM SURVEILLANCE OPERATOR documented as of this encounter Care Teams Equipment Superintendent Relationship Specialty [place] [address] [place] [address] PCP - General Family Practice 09/11/15 [place] [address] [place] [address] Assigned PCP 12/26/18 08/01/22 [facility] [address] [place] [address] Pharmacist Pharmacist 01/11/19 10/10/20 [place] [address] [place] [address] Assigned PCP 10/11/22 12/26/22 documented as of this encounter
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
--- OUTSIDE RECORDS SUMMARY | 2024-11-28 17:13 | XMS_ITS | Encounter Summary ---
Author Organization [place] Address [address] [place] [address] Care Team Providers Care Risk Analyst Name Role Phone Carol Lambert MD Primary Care Provider [phone] Carol Lambert MD Unavailable Rosario Ku [facility] Unavailable [phone] Carol Lambert MD Unavailable Encounter Details Date Type Department Care Team (Late st Contact Info) Description 07/27/2019 [facility] [address] [address] Rosario Ku, [facility] [address] [place] [address] Social History Tobacco Use Types [...] on file Legal Sex Female 3:21 AM BOTTLE FILLER Gender Identity Not on file Sexual Orientation [...] Out COVID-19 08/17/2020 08/17/2020 08/18/2020 1:01 PM BOTTLE FILLER Assessment Noted Time PHQ-9 Depression Total Score: 0 06/28/20 19 7:04 AM BOTTLE FILLER documented as of this encounter Care Teams Risk Analyst Relationship Specialty [place] [address] [place] [address] PCP - General Family Practice 09/11/15 [place] [address] [place] [address] Assigned PCP 12/26/18 08/01/22 Rosario Ku, [facility] [address] [place] [address] Pharmacist Pharmacist 01/11/19 10/10/20 [place] [address] [place] [address] Assigned PCP 10/11/22 12/26/22 documented as of this encounter
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
--- OUTSIDE RECORDS SUMMARY | 2024-11-28 17:13 | XMS_ITS | Encounter Summary ---
Author Organization [facility] Address [address] [place] [address] Care Team Providers Care Rubbish Collector Name Role Phone Carol Lambert MD Primary Care Provider [phone] Carol Lambert MD Unavailable Rosario Ku [facility] Unavailable [phone] Carol Lambert MD Unavailable Reason for Visit * Reason Onset Date Comments Medication Follow-up 01/13/2019 Encounter Details Date Type Department Care Team (Late st Contact Info) Description 01/13/2019 [facility] [address] [address] Rosario Ku, [facility] [address] [place] [address] Medication Follow-up Social History Tobacco [...] on file Legal Sex Female 3:21 AM TOURIST CABIN KEEPER Gender Identity Not on file Sexual Orientation [...] Out COVID-19 08/17/2020 08/17/2020 08/18/2020 1:01 PM TOURIST CABIN KEEPER Assessment Noted Time PHQ-9 Depression Total Score: 9 12/17/19 19 7:04 AM CDT documented as of this encounter Care Teams Rubbish Collector Relationship Specialty [place] [address] [place] [address] PCP - General Family Practice 09/11/15 [place] [address] [place] [address] Assigned PCP 12/26/18 08/01/22 Rosario Ku, [facility] [address] [place] [address] Pharmacist Pharmacist 01/11/19 10/10/20 [place] [address] [place], [place] [address] Assigned PCP 10/11/22 12/26/22 documented as of this encounter
--- OUTSIDE RECORDS SUMMARY | 2024-11-28 17:13 | XMS_ITS | Encounter Summary ---
Author Organization [place] Address [address] [place] [address]. [place] [address] Care Team Providers Care Maintenance Inspector Name Role Phone Craol Lambert MD Primary Care Provider [phone] Carol Lambert MD Unavailable Richie Palm MD Unavailable [facility] Carol Davis MD Unavailable Varsha Thompson MD Unavailable + Carol Lambert MD Unavailable Rosario Ku [facility] Unavailable Carol Lambert MD Unavailable Encounter Details Date Type Department Care Team (Late st Contact Info) Description 10/27/2016 [facility] [address] [place] [address] [place] Lambert [place] [id number] [place] [address] Social History Tobacco Use Types Packs/Day Years Used Date Smoking Tobacco: Every Day Cigarettes 0.5 4 Smokeless Tobacco: Never Alcohol Use Standard Drinks/Week Comments Yes 0 (1 standard drink = 0.6 oz pur e alcohol) occ Comments No Sex and Gender Information Value Date Recorded Sex Assigned at Not on file Legal Sex Female 3:21 AM APPEALS RN Gender Identity Not on file Sexual Orientation [...] Out COVID-19 08/17/2020 08/17/2020 08/18/2020 1:01 PM APPEALS RN Assessment Noted Time PHQ-9 Depression Total Score: 7 10/02/19 17 7:16 AM APPEALS RN documented as of this encounter Care Teams Maintenance Inspector Relationship Specialty [place] [address] [place] [address] PCP - General Family Practice 09/11/15 [place] [address] [place] [address] PCP - Assigned PCP 01/21/15 10/19/18 Richie Palm MD Assigned PCP 10/17/18 11/06/18 [place] [address] [place] [address] Assigned PCP 12/21/14 10/16/18 Varsha Thompson MD [place] [address] [place] [address] [place] [address] Assigned PCP 11/07/18 12/25/18 [place] [address] [place] [address] Assigned PCP 12/26/18 08/01/22 Rosario Ku, [facility] [address] [place] [address] Pharmacist Pharmacist 01/11/19 10/10/20 [place] [address] [place] [address] Assigned PCP 10/11/22 12/26/22 documented as of this encounter
--- OUTSIDE RECORDS SUMMARY | 2024-11-28 17:13 | XMS_ITS | Clinical Summary ---
Author Organization [facility] Address [address] [place] [address] Care Team Providers Care Staff Physical Therapy Assistant Name Role Phone Chalo Grier MD Primary [...] on file Legal Sex Female 6:26 AM EMERGENCY MEDICINE PHYSICIAN ASSISTANT Gender Identity Not on file Sexual Orientation Not on file Obstetrics History Last Filed Vital Signs Vital Sign Reading Time Taken Comments Blood Pressure 147/86 10/06/2022 5:01 PM EMERGENCY MEDICINE PHYSICIAN ASSISTANT Pulse 91 10/06/2022 5:01 PM EMERGENCY MEDICINE PHYSICIAN ASSISTANT Temperature 36.8 C (98.2 F) 10/06/2022 5:01 PM EMERGENCY MEDICINE PHYSICIAN ASSISTANT Respiratory Rate 18 10/06/2022 5:01 PM EMERGENCY MEDICINE PHYSICIAN ASSISTANT Oxygen Saturation 99% 10/06/2022 5:01 PM EMERGENCY MEDICINE PHYSICIAN ASSISTANT Inhaled Oxygen Concentration - - Weight 82.6 kg (182 lb) 10/06/2022 5:01 PM EMERGENCY MEDICINE PHYSICIAN ASSISTANT Height 157.5 cm (5' 2) 10/06/2022 5:01 PM EMERGENCY MEDICINE PHYSICIAN ASSISTANT Body Mass Index 33.29 10/06/2022 5:01 PM EMERGENCY MEDICINE PHYSICIAN ASSISTANT Plan of Treatment Health Maintenance Due Date [...] GYNECOLOGICAL PANEL Timed 10/10/2011 8 :30 AM EMERGENCY MEDICINE PHYSICIAN ASSISTANT from Last 3 Months or Most Recently Relevant to Health Maintenance Results * GYNECOLOGICAL PANEL (10/10/2011 8:30 AM EMERGENCY MEDICINE PHYSICIAN ASSISTANT) CYTOLOGY CYTOPATHOLOGY REPORT [facility] Status: Final Status [id number] CLINICAL INFORMATION Last Date of LMP :09/22/11 Last Pap Date :?2009 Last Pap Result :NORMAL [place]/Bx done today :No HPV Request :HPV if [...] malignant lesions. COLLECTED:10/10/11 ACCESSIONED: 10/13/11 SIGNED: 10/15/11 [facility] PAP [place] CODE NIL [facility] 10/10/2011 8:30 AM EMERGENCY MEDICINE PHYSICIAN ASSISTANT 10/13/2011 8:30 AM EMERGENCY MEDICINE PHYSICIAN ASSISTANT us Win FLOOD PATHOLOGY/CYTOLOGY Final Result [facility] INTERNAL ZIP [address] [address] from Last 3 Months or Most Recently Relevant to Health Maintenance Insurance [facility] Care Teams Staff Physical Therapy Assistant Relationship Specialty Start Date End Date Cahlo Grier MD PCP - General 05/12/08
--- OUTSIDE RECORDS SUMMARY | 2024-11-28 17:13 | XMS_ITS | Encounter Summary ---
Author Organization [place] Address [address] [place] [address] Care Team Providers Care Director Compliance Name Role Phone Xiang Moreno MD Primary Care Provider [phone] Dedrick Frazier Primary Care Provider [phone] Carol Lambert MD Primary Care Provider Carol Lambert MD Unavailable Richie Palm MD Unavailable Carol Salmon MD Unavailable Varsha Thompson MD Unavailable + Carol Lambert MD Unavailable Rosario Ku [facility] Unavailable Carol Lambert MD Unavailable Encounter Details Date Type Department Care Team (Late st Contact Info) Description 01/03/[address] [address] Enrique Garcia MD [facility] [address] [address] OP REPT; DIS SUMM 01/06 (Primary Dx) [...] on file Legal Sex Female 3:21 AM WIRE COATING MACHINE OPERATOR Gender Identity Not on file Sexual Orientation Not on file 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 by myself. Her was complicated with multiple uri nary tract infections. She was seen [facility], Dr. Lovett and also by Urolog y. She has been on antibiotics throughout the . During the , ureteral stents were placed to help reduce these infections. Her was also complicated by gestational diabetes which required insulin. She was treated by Dr. Gomez, broom bundler for the diabetes mellitus. T he patient suffers from depression. This was under control. She has two other children and her secon d was complicated by ARDS and sepsis requiring admission to the Intensive Care Unit at [facility] h time she was extremely ill. She [...] Chiang 01/10/2003 3:58 PM 14:11 Discharge Summary -[facility] Darcie GARCIA () [Entered: 00:00 Glass Beveller ([facility])] ADMISSION DIAGNOS IS: 1. Intrauterine gestation [...] livered. Lysis of adhesions. HOSPITAL COURSE: Concepción Dumnot's hospital course was smooth in spite of her complications. She was discharged in good condition. Hemoglobin was 10.5 g/dL. DISCHA RGE PLAN: She is sent home with Percocet. She is to continue her vitamins. She is to call for any complications. She is to call Dr. Hernandez, her butcher or smallgoods maker, to restart her antidepressant medic ations and for follow-up in two weeks. Darcie GARCIA MD MT: dre Document: [id number] [place], [place] Name: CONCEPCIÓN SIMPSON Please refer to the Nursing Discharge Information Sheet for more detailed informati on regarding diet, physical activity limitations, medications and other pertinent instructions given to this patient upon discharge. DISCHARGE SUMMARY Page 2 of 1 LCN: 4N DSC: 01/06/2003 [place], [place] Name: CONCEPCIÓN DUMONT MR#: : Admit Date: 3292-11-13-18 01/03/2003 Doctor: Darcie GARCIA MD Please refer [...] Out COVID-19 08/17/2020 08/17/2020 08/18/2020 1:01 PM WIRE COATING MACHINE OPERATOR documented as of this encounter Care Teams Director Compliance Relationship Specialty Start Date End Date Xiang Moreno MD [address] [place] [address] PCP - General 10/01/01 02/27/13 eDdrick Frazier [address] [address] PCP - General 02/28/13 09/10/15 [place] [address] [place] [address] PCP - General Family Practice 09/11/15 [place] [address] [place] [address] PCP - Assigned PCP 01/21/15 10/19/18 Richie Palm MD Assigned PCP 10/17/18 11/06/18 [place] [address] [place] [address] Assigned PCP 12/21/14 10/16/18 Varsha Thompson MD [address] [address] Assigned PCP 11/07/18 12/25/18 [place] [address] [place], [place] [address] Assigned PCP 12/26/18 08/01/22 Rosario Ku, [facility] [address] [place] [address] Pharmacist Pharmacist 01/11/19 10/10/20 [place] [address] [place], [place] [address] Assigned PCP 10/11/22 12/26/22 documented as of this encounter
--- OUTSIDE RECORDS SUMMARY | 2024-11-28 17:13 | XMS_ITS | Encounter Summary ---
Author Organization [facility] Address [address] [place] [address] Care Team Providers Care Food Tray Assembler Name Role Phone Xiang Moreno MD Primary Care Provider [phone] Dedrick Frazier Primary Care Provider [phone] Carol Lambert MD Primary Care Provider [phone] Carol Lambert MD Unavailable Richie Palm MD Unavailable Carol Salmon MD Unavailable Varsha Thompson MD Unavailable + Carol Lambert MD Unavailable Rosario Ku [facility] Unavailable [phone] Carol Lambert MD Unavailable Encounter Details Date Type Department Care Team (Late st Contact Info) Description 07/03/[address] [address] Jackie Hernandez MD NO INFO FOUND XXXCHANDNI [id number] ER ENC 07/03/02 (Primary Dx) Social History [...] on file Legal Sex Female 3:21 AM FICTION WRITER Gender Identity Not on file Sexual Orientation Not on file 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 Cough. HISTORY OF [...] have an ultrasound early in the w [facility] showed a living intrauterine . She denies [...] week intrauterine . Nik [facility] Document: [id number] ALFREDO RV[place], [place] Name: CONCEPCIÓN DUMONT EMERGENCY ROOM ENCOUNTER Page 2 of 2 LCN: ER DSC: 07/03/2002 [place], [place] Name: [place] DUMONT MR#: : Admit Date: [id number] 1980 07/03/2002 Doctor: Nik TOLENTINO MD [facility] ROOM ENCOUNTER Page 1 of 2 Electronically [...] Out COVID-19 08/17/2020 08/17/2020 08/18/2020 1:01 PM FICTION WRITER documented as of this encounter Care Teams Food Tray Assembler Relationship Specialty Start Date End Date Xiang Moreno MD [address] [place] [address] PCP - General 10/01/01 02/27/13 Dedrick Frazier [address] [address] PCP - General 02/28/13 09/10/15 [place] [address] [place] [address] PCP - General Family Practice 09/11/15 [place] [address] [place] [address] PCP - Assigned PCP 01/21/15 10/19/18 Richie Palm MD Assigned PCP 10/17/18 11/06/18 [place] [address] [place] [address] Assigned PCP 12/21/14 10/16/18 Varsha Thompsonn, MD [place] [address] [address] Assigned PCP 11/07/18 12/25/18 [place] [address] [place] [address] Assigned PCP 12/26/18 08/01/22 [facility] [address] [place] [address] Pharmacist Pharmacist 01/11/19 10/10/20 [place] [address] [place] [address] Assigned PCP 10/11/22 12/26/22 documented as of this encounter
--- OUTSIDE RECORDS SUMMARY | 2024-11-28 17:13 | XMS_ITS | Encounter Summary ---
Author Organization [facility] Address [address] [place] [address] Care Team Providers Care Print Traffic Manager Name Role Phone Carol Lambert MD Primary Care Provider [phone] Carol Lambert MD Unavailable Rosario Ku [facility] Unavailable [phone] Carol Lambert MD Unavailable Encounter Details Date Type Department Care Team (Late st Contact Info) Description 04/04/2020 [facility] [address] [address] Rosario Ku, [facility] [address] [place] [address] Social History Tobacco Use Types [...] on file 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 Gender Identity Not on file Sexual [...] Out COVID-19 08/17/2020 08/17/2020 08/18/2020 1:01 PM 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
--- OUTSIDE RECORDS SUMMARY | 2024-11-28 17:13 | XMS_ITS | Clinical Summary ---
Author Organization [facility] Address [address], [place] [address] Care Team Providers Care School Guard Name Role Phone Unavailable Primary Care Provider Unavailabl e Source Comments You are receiving this document as you are listed as the primary care provider,follow-up provider, or the patient has been referred to you for consultation.This is in compliance with the Medicare and[facility] Hospital[facility] EHR Incentive Program,which states Providers who transition their patient to another setting of careor provider of care or refers their patient to another provider of care shouldprovide summary care record for each transition of care or referral. [employer] Allergies Active Allergy Reactions Criticality Noted Date [...]
--- OUTSIDE RECORDS SUMMARY | 2024-11-28 17:13 | XMS_ITS | Encounter Summary ---
Author Organization [place] Address [address] [place] [address]. 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 Gender Identity Not on file Sexual Orientation [...] Out COVID-19 08/17/2020 08/17/2020 08/18/2020 1:01 PM COUNCILPERSON Assessment Noted Time PHQ-9 Depression Total Score: 0 12/15/19 20 2:03 PM CDT documented as of this encounter Care Teams Manufacturing Quality Inspector Relationship Specialty [place] [address] [place] [address] PCP - General Family Practice 09/11/15 [place] [address] [place] [address] Assigned PCP 12/26/18 08/01/22 Rosario Ku, [facility] [address] [place] [address] Pharmacist Pharmacist 01/11/19 10/10/20 [place] [address] [place] [address] Assigned PCP 10/11/22 12/26/22 documented as of this encounter
== END 2024-11-28 17:20 | disposition home or self-care (01) ==
PROVIDERS: Emergency Provider Emergency Medicine Emergency Medical Services; PCP Physician Assistant Medical
DX: G56.03 Carpal tunnel syndrome, bilateral upper limbs (principal); E11.9 Type 2 diabetes mellitus without complications; R20.0 Anesthesia of skin; Z79.85 Long-term (current) use of injectable non-insulin antidiabetic drugs
CPT/HCPCS: 99283; 99284

== ENCOUNTER 2025-03-28 18:01 | Emergency (ER) | payer BC, SELFPAY ==
--- OUTSIDE RECORDS SUMMARY | 2025-02-20 15:30 | XMS_ITS | Encounter Summary ---
Author Organization [facility] Address [address] [place] [address] Care Team Providers Care Petroleum Transport Driver Name Role Phone Carol Lambert MD Primary Care Provider [phone] Reason for Referral * Diagnostic Imaging Mammo (Routine) - Pending Review Specialty Diagnoses / Procedures Referred By Rocío ruffin Referred To Contact Radiology. Diagnoses Visit for screening mammogram Procedures MA Screening Bilateral w/ Dirk Nicolás Gillis APRN CHANGER FIXER [address] [place] [address] Phone: tel: fax: Referral ID Status Reason Start Date Expiration Date V isits Requested Visits Authorized [id number] Pending Review 02/20/2025 02/20/2026 1 1 * Diagnostic Imaging Ultrasound (Routine) - Pending Review Specialty Diagnoses / Procedures Referred By Rocío ruffin Referred To Contact Radiology. Diagnoses Throat pain Thyroid nodule Procedures US Thyroid Nicolás Gillis APRN CHANGER FIXER [address] [place] [address] Phone: tel: fax: Referral ID Status Reason Start Date Expiration Date V isits Requested Visits Authorized [id number] Pending Review 02/20/2025 02/20/2026 1 1 Reason for Visit * Reason Comments Migraine Encounter Details Date Type Department Care Team (Late st Contact Info) Description 02/20/2025 3:30 PM CDT Office Visit [facility] [address] [place] [address] Gillis LINH MonzonN SEBASTIAN [address] [place] [address] Throat pain (Primary Dx); Thyroid nodule; Dysphagia, unspecified type; Fibromyalgia; Penobscot's syndrome; Type 2 diabetes mellitus without complication, without long-term current use of insulin (H); Visit for screening mammogram Social History Tobacco Use Types Packs/Day Years Used Date Smoking Tobacco: Every Day Cigarettes 0.5 4 Smokeless Tobacco: Never Tobacco Cessation:Ready to Q uit: Not Asked; Counseling Given: Not Answered Comments:less then half a pack Alcohol Use Standard Drinks/Week Comments Yes 0 (1 standard drink = 0.6 oz pur e alcohol) occ PHQ-2 Answer Date Recorded PHQ-2 Score 0 02/20/2025 Adolescent Education Answer Date Record ed Getting School Help Needed Not on file 05/19 Interpersonal Safety Answer Date Record ed Do you feel physically and e motionally safe where you currently live? Yes 02/20/2025 Within the past 12 months, h ave you been hit, slapped, kicked or otherwise physically hurt by someone? No 02/20/2025 Within the past 12 months, h ave you been humiliated or emotionally abused in other ways by your partner or ex-partner? 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 Not on file Not on file documented as of this encounter Last Filed Vital Signs Vital Sign Reading Time Taken Comments Blood Pressure 111/69 02/20/2025 3:21 PM CDT Pulse 103 02/20/2025 3:21 PM CDT Temperature 36.9 C (98.5 F) 02/20/2025 3:21 PM CDT Respiratory Rate - - Oxygen Saturation 100% 02/20/2025 3:21 PM CDT Inhaled Oxygen Concentration - - Weight 73.9 kg (163 lb) 02/20/2025 3:21 PM CDT Height 157.5 cm (5' 2) 02/20/2025 3:21 PM CDT Body Mass Index 29.81 02/20/2025 3:21 PM CDT documented in this encounter Progress Notes * Nicolás Gillis APRN CHANGER FIXER - 02/20/2025 3:30 PM CDT Images from the original note were not included. Assessment & Plan (R07.0) Throat pain (primary encounter diagnosis) (E04.1) Thyroid nodule (R13.10) Dysphagia, unspecified type Comment: would like thyroid worked up. US and TSH ordered. Concerned could be contributing to her dysphagia and throat pain. Will follow up on results and whether further direction is necessary. Patient fully understands and is agreeable with plan of care, at this point patient will follow up as needed unless acute concerns arise in the meantime. Plan: US Thyroid, TSH with free T4 reflex, PRIMARY CARE FOLLOW-UP SCHEDULING (M79.7) Fibromyalgia Comment: exacerbated for multiple reasons. Not sleeping well. Having fibro flare pain. Will providepatient w/ Flexeril. Discussed medication risks and benefits of Flexeril with patient in detail with patient verbal understanding. Discussed not drinking alcohol while using. Patient fully understands and is agreeable with plan of care, at this point patient will follow up as needed unless acute concerns arise in the meantime. 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 Being followed by pain specialist as well as ENT. Patient endorsed ENT wanting to send her to Eagles syndrome specialist. Reccommended reaching out to ENT office and askingfor referral to Eagles syndrome specialist. Patient fully understands and is agreeable with plan of care, at this point patient will follow up as needed unless acute concerns arise in the meantime. (E11.9) Type 2 diabetes mellitus without complication, without long-term current use of insulin (H) Comment: patient endorses being well controlled. Currently on ozempic. Needs to establish w/ new PCP. Will have team reach out to schedule. (Z12.31) Visit for screening mammogram Plan: MA Screening Bilateral w/ Dirk Nicotine/Tobacco Cessation She reports that she has been smoking cigarettes. She has a 2 pack-year smoking history. She has never used smokeless tobacco. Nicotine/Tobacco Cessation Plan Deferred to next visit, did not discuss. BMI Estimated body mass index is 29.81 kg/m?? as calculated from the following: Height as of this encounter: 1.575 m (5' 2). Weight as of this encounter: 73.9 kg (163 lb). Amarjit Beebe is a 44 year old, presenting for the following health issues: Migraine 02/20/2025 3:19 PM Additional Questions Roomed by Mandy Fraire History of Present Illness Headaches: Since the patient's last clinic visit, headaches are: worsened The patient is getting headaches: Daily She is not able to do normal daily activities when she has a migraine. The patient is taking the following rescue/relief medications: Other Patient states I get no relief from the rescue/relief medications. The patient is taking the following medications to prevent migraines: No medications to prevent migraines In the past 4 weeks, the patient has gone to an Urgent Care or Emergency Room 0 times times due to headaches. She is taking medications regularly. 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 -Patient has seen ENT for this -Pain has not improved -Started seeing pain clinic and was started on savella, did not tolerate -Tried trigger point injections which have had minimal effect -was also noted on CT that patient had 8 mm thyroid nodule, was not followed up on -she also had a swallow test that returned unremarkable -continues to have concerns for dysphagia -denies any fever, chills, myalgias . Review of Systems Constitutional, HEENT, cardiovascular, pulmonary, GI, , musculoskeletal, neuro, skin, endocrine and psych systems are negative, except as otherwise noted. Objective BP 111/69 (BP Location: Left arm, Patient Position: Sitting, Cuff Size: Adult Regular) Pulse 103 Temp 98.5 ??F (36.9 ??C) (Oral) Ht 1.575 m (5' 2) Wt 73.9 kg (163 lb) LMP 07/27/2016 [id number]% BMI 29.81 kg/m?? Body mass index is 29.81 kg/m??. Physical Exam Vitals and nursing note reviewed. Constitutional: General: She is not in acute distress. Appearance: Normal appearance. She is not ill-appearing. HENT: Right Ear: Tympanic membrane, ear canal and external ear normal. There is no impacted cerumen. Left Ear: Tympanic membrane, ear canal and external ear normal. There is no impacted cerumen. Nose: No congestion or rhinorrhea. Mouth/Throat: Mouth: Mucous membranes are moist. Pharynx: No oropharyngeal exudate or posterior oropharyngeal erythema. Eyes: General: Right eye: No discharge. Left eye: No discharge. Conjunctiva/sclera: Conjunctivae normal. Pupils: Pupils are equal, round, and reactive to light. Neck: Thyroid: Thyroid tenderness present. Comments: Some swelling and pain to palpation noted to highlighted area Cardiovascular: Rate and Rhythm: Normal rate and regular rhythm. Heart sounds: No murmur heard. No friction rub. No gallop. Pulmonary: Effort: No respiratory distress. Breath sounds: Normal breath sounds. No stridor. No wheezing, rhonchi or rales. Musculoskeletal: Cervical back: No tenderness. Lymphadenopathy: Cervical: No cervical adenopathy. Skin: General: Skin is warm and dry. Neurological: General: No focal deficit present. Mental Status: She is alert. Psychiatric: Mood and Affect: Mood normal. Behavior: Behavior normal. Thought Content: Thought content normal. Judgment: Judgment normal. Signed Electronically by: Nicolás Gillis APRN CNP documented in this encounter Plan of Treatment Upcoming Encounters Date Type Department Care Team (Late st Contact Info) Description 03/29/2025 3:00 PM CDT Appointment [facility] [address], [address] [place] [address] Nicolás Gillis APRN CHANGER FIXER [address] [place] [address] 03/29/2025 3:30 PM CDT Appointment [facility] [address], [address] [place] [address] Nicolás Gillis APRN CHANGER FIXER [address] [place], [place] [phone] 05/01/2025 9:00 AM CDT Office Visit [facility] [address] [place] [phone] Nicolás Gillis APRN CHANGER FIXER [address] [place] [address] [place] [address] [place], [place] [phone] documented as of this encounter Procedures Procedure Name Priority Date/Time Associated Diagnosis Comments TSH WITH FREE T4 REFLEX Routine 02/20/2025 3:59 PM CDT Throat pain Thyroid nodule documented in this encounter Results * (ABNORMAL) MA Screening Bilateral w/ Dirk (03/22/2025 3:48 PM CDT) Anatomical Region Laterality Modality Breast Bilateral Mammography Impressions 03/23/2025 1:43 PM CDT IMPRESSION: BI-RADS CATEGORY: 0 - Incomplete - Need additional imaging evaluation. RECOMMENDED FOLLOW-UP: Additional mammographic images and possible ultrasound of the right breast. The results and recommendations of this examination will be communicated to the patient and the imaging center will attempt to contact the patient within 2-3 business days to schedule follow-up imaging. Gurdeep Sargent MD Narrative 03/23/2025 1:43 PM CDT BILATERAL FULL FIELD DIGITAL SCREENING MAMMOGRAM WITH TOMOSYNTHESIS Performed on: 03/22/25 No comparisons were made when reading this study. Technique: This study was evaluated with the assistance of Computer-Aided Detection. Breast Tomosynthesis was used in interpretation. Findings: The breasts are heterogeneously dense, which may obscure small masses. There is a possible asymmetry in the right breast on the CC view lateral position, middle depth. The remainder of the breast tissue is unremarkable. There is no suspicious finding of the left breast. us Nicolás Gillis CREDIT SUPPORT SPECIALIST CHANGER FIXER IMG MAMMOGRAPHY ORDERABLES Final Result * US Thyroid (03/13/2025 5:16 PM CDT) Anatomical Region Laterality Modality Neck Ultrasound 03/13/2025 5:16 PM CDT Impressions 03/13/2025 10:26 PM CDT IMPRESSION: 1. Right mid thyroid nodule which fails to meet criterion for ultrasound-guided fine-needle aspiration. Nodules are characterized per ACR Thyroid Imaging, Reporting and Data System (TI-RADS): White Paper of the ACR TI-RADS Committee Liborio Pittman. et al. Journal of the [place] [employer] 2017. Volume 14 (2017), Issue 5, 135-355. Narrative 03/13/2025 10:26 PM CDT EXAM: US THYROID LOCATION: [facility] DATE: 03/13/2025 INDICATION: Throat pain, Thyroid nodule COMPARISON: None. TECHNIQUE: Thyroid ultrasound. FINDINGS: RIGHT lobe: 5.7 x 1.8 x 1.8 cm. Homogeneous echotexture. Isthmus: 5 mm. LEFT lobe: 5.9 x 2.0 x 1.6 cm. Homogeneous echotexture. NECK: No cervical lymphadenopathy. NODULES: Nodule 1: Right mid thyroid, 1.4 x 1.0 x 1.0 cm Composition: Solid or almost completely solid, 2 points Echogenicity: Hyperechoic or isoechoic, 1 point Shape: Not taller than wide, 0 points Margin: Smooth, 0 points Echogenic Foci: None, or large comet-tail artifacts, 0 points Point Total: 3 points. TI-RADS 3. If 2.5 cm or larger, recommend FNA; if 1.5 cm or larger, recommend follow up US at 1, 3, and 5 years. Procedure Note Vimal Talamantes MD - 03/13/2025 EXAM: US THYROID LOCATION: [facility] DATE: 03/13/2025 INDICATION: Throat pain, Thyroid nodule COMPARISON: None. TECHNIQUE: Thyroid ultrasound. FINDINGS: RIGHT lobe: 5.7 x 1.8 x 1.8 cm. Homogeneous echotexture. Isthmus: 5 mm. LEFT lobe: 5.9 x 2.0 x 1.6 cm. Homogeneous echotexture. NECK: No cervical lymphadenopathy. NODULES: Nodule 1: Right mid thyroid, 1.4 x 1.0 x 1.0 cm Composition: Solid or almost completely solid, 2 points Echogenicity: Hyperechoic or isoechoic, 1 point Shape: Not taller than wide, 0 points Margin: Smooth, 0 points Echogenic Foci: None, or large comet-tail artifacts, 0 points Point Total: 3 points. TI-RADS 3. If 2.5 cm or larger, recommend FNA; if1.5 cm or larger, recommend follow up US at 1, 3, and 5 years. IMPRESSION: 1. Right mid thyroid nodule which fails to meet criterion forultrasound-guided fine-needle aspiration. Nodules are characterized per ACR Thyroid Imaging, Reporting and Data System (TI-RADS): White Paper ofthe ACR TI-RADS Committee Liborio Pittman et al. Journal of the [place] [employer] of Wgtgeldfj3015. Volume 14 (2017), Issue 5, 587-846. Nicolás Gillis APRN CHANGER FIXER IMG US ORDERABLES Final Res ult * TSH with free T4 reflex (02/20/2025 3:59 PM CDT) TSH 0.71 0.30 - 4.20 uIU/mL 02/21/2025 4:10 AM CDT [facility] Blood BLOOD SPECIMEN / Unknown Venipuncture / Unknown 02/20/2025 3:59 PM CDT 02/20/2025 3:59 PM CDT Nicolás Gillis APRN CHANGER FIXER LAB - BLOOD ORDERABLES Ne l Result [facility] [place] [facility] [address] [facility] [address] [facility] [address], [address] [place] [address], [facility] documented in this encounter Visit Diagnoses Diagnosis Throat pain- Primary Thyroid nodule Nontoxic uninodular goiter Dysphagia, unspecified type Fibromyalgia Mylagia and myositis, unspecified Penobscot's syndrome Other disorder of muscle, ligament, and fascia Type 2 diabetes mellitus without complication, without long-term current use of insulin (H) Visit for screening mammogram Other screening mammogram Throat pain Thyroid nodule Nontoxic uninodular goiter Visit for screening mammogram Other screening mammogram documented in this encounter Additional Health Concerns Assessment Noted Time PHQ-9 Depression Total Score: 0 12/15/19 20 2:03 PM CDT documented as of this encounter Care Teams Petroleum Transport Driver Relationship Specialty [place] [address] [place] [address] PCP - General Family Practice 09/11/15 documented as of this encounter
--- OUTSIDE RECORDS SUMMARY | 2025-03-13 16:46 | XMS_ITS | Encounter Summary ---
Author Organization [facility] Address [address] [place] [address] Care Team Providers Care E Commerce Project Manager Name Role Phone Carol Lambert MD Primary Care Provider [phone] [facility] Unavail able Reason for Referral * Diagnostic Imaging Ultrasound (Routine) - Pending Review Specialty Diagnoses / Procedures Referred By Contac t Referred To Contact Radiology. Diagnoses Throat pain Thyroid nodule Procedures US Thyroid Nicolás Gillis APRN WRAPPER SHEETER [address] [place] [address] Phone: tel: fax: Referral ID Status Reason Start Date Expiration Date V isits Requested Visits Authorized [id number] Pending Review 02/20/2025 02/20/2026 1 1 Reason for Visit * Diagnostic Imaging Ultrasound (Routine) - Pending Review Specialty Diagnoses / Procedures [facility] Referred To Contact Radiology. Diagnoses Throat pain Thyroid nodule Procedures US Thyroid Nicolás Gillis APRN WRAPPER SHEETER [address] [place] [address] Phone: tel: fax: Referral ID Status Reason Start Date Expiration Date V isits Requested Visits Authorized [id number] Pending Review 02/20/2025 02/20/2026 1 1 Encounter Details Date Type Department Care Team (Latest Contact Info) Description 03/13/2025 4:46 PM CDT - 03/13/2025 11:59 PM CDT Hospital Encounter [facility] [address] [place] [phone] Elis NicolásGREGG dangelo WRAPPER SHEETER [address] [place] [address] Throat pain; Thyroid nodule Discharge Disposition: Home or Self Care Social History Tobacco Use Types Packs/Day Years [...] on file 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 30 tablet 1 02/20/2025 metFORMIN (GLUCOPHAGE XR) 500 MG 24 hr tablet 06/26/2022 OZEMPIC, 1 MG/DOSE, 4 MG/3ML pen 1 mg. 11/02/2024 documented as of this encounter Plan of Treatment Upcoming Encounters Date Type Department Care Team (Late st Contact Info) Description 03/29/2025 3:00 PM CDT Appointment [facility] [address], [address] [place] [address] Nicolás Gillis APRN WRAPPER SHEETER [address] [place], [place] [phone] 03/29/2025 3:30 PM CDT Appointment [facility] [address], [address] [place] [address] Nicolás Gillis APRN WRAPPER SHEETER [address] [place] [address] 05/01/2025 9:00 AM CDT Office Visit [facility] [address] [place] [address] Nicolás Gillis APRN WRAPPER SHEETER [address] [place] [address] [place] [address] [place], [place] [phone] documented as of this encounter Procedures Procedure Name Priority Date/Time Associated Diagnosis Comments US THYROID Routine 03/13/2025 5:16 PM CDT Throat pain Thyroid nodule documented in this encounter Results * US Thyroid (03/13/2025 5:16 PM CDT) Anatomical Region Laterality Modality Neck Ultrasound 03/13/2025 5:16 PM CDT Impressions 03/13/2025 10:26 PM CDT IMPRESSION: 1. Right mid thyroid nodule which fails to meet criterion for ultrasound-guided fine-needle aspiration. Nodules are characterized per ACR Thyroid Imaging, Reporting and Data System (TI-RADS): White Paper of the ACR TI-RADS Committee Liborio Pittman et al. Journal of the [employer] 2017. Volume 14 (2017), Issue 5, 584-303. Narrative 03/13/2025 10:26 PM CDT EXAM: US THYROID LOCATION: [facility] DATE: 03/13/2025 INDICATION: Throat pain, Thyroid nodule [...] MD - 03/13/2025 EXAM: US THYROID LOCATION: [facility] DATE: 03/13/2025 INDICATION: Throat pain, Thyroid nodule [...] Liborio Pittman et al. Journal of the [employer] of Zadmnwyom4051. Volume 14 (2017), Issue 5, 587-442. us Nicolás Gillis APRN, CNP IMG US ORDERABLES Final Res ult documented in this encounter Visit Diagnoses Diagnosis Throat pain Thyroid nodule Nontoxic uninodular goiter documented in this encounter Additional Health Concerns Assessment Noted Time PHQ-9 Depression Total Score: 0 12/15/19 20 2:03 PM CDT documented as of this encounter Care Teams E Commerce Project Manager Relationship Specialty [place] [address] [place] [address] PCP - General Family Practice 09/11/15 Clinic [facility] [address] [place], [place] [id number] Assigned PCP 03/08/25 documented as of this encounter
--- OUTSIDE RECORDS SUMMARY | 2025-03-22 16:00 | XMS_ITS | Encounter Summary ---
Author Organization [facility] Address [address] [place] [address]. [place] [address] Care Team Providers Care Commercial Pest Control Representative Name Role Phone Carol Lambert MD Primary Care Provider [phone] Clinic - [facility] Unavail able Reason for Visit * Diagnostic Imaging Mammo (Routine) - Pending Review Specialty Diagnoses / Procedures Referred By Rocío ruffin Referred To Contact Radiology. Diagnoses Visit for screening mammogram Procedures MA Screening Bilateral w/ Dirk Nicolás Gillis APRN SILVERSMITH APPRENTICE [address] [place] [address] Phone: tel: fax: Referral ID Status Reason Start Date Expiration Date V isits Requested Visits Authorized [id number] Pending Review 02/20/2025 02/20/2026 1 1 Encounter Details Date Type Department Care Team (Latest Contact Info) Description 03/22/2025 4:00 PM CDT Ancillary Procedure [facility] [address] [place] [address] Nicolás Gillis APRN SILVERSMITH APPRENTICE [address] [place] [address] Visit for screening mammogram Social History Tobacco [...] on file 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 Gender Identity Female 02/27/2025 12:43 PM CDT Sexual Orientation Not on file 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 Not on file Not on file documented as of this encounter Plan of Treatment Upcoming Encounters Date Type Department Care Team (Late st Contact Info) Description 03/29/2025 3:00 PM CDT Appointment [facility] [address], [address] [place] [address] Nicolás Gillis APRN SILVERSMITH APPRENTICE [address] [place] [address] 03/29/2025 3:30 PM CDT Appointment [facility] [address], [address] [place] [address] Nicolás Gillis APRN SILVERSMITH APPRENTICE [address] [place] [address] 05/01/2025 9:00 AM CDT Office Visit [address] [phone] Nicolás Gillis APRN SILVERSMITH APPRENTICE [address] [place] [address] [place] [address] [place] [address] documented as of this encounter Procedures Procedure Name Priority Date/Time Associated Diagnosis Comments MA SCREENING BILATERAL W/ DIRK Routine 03/22/2025 3:48 PM CDT Visit for screening mammogram documented in this encounter Results * (ABNORMAL) [...] of the left breast. us Nicolás Gillis APRN SILVERSMITH APPRENTICE IMG MAMMOGRAPHY ORDERABLES Final Result documented in this encounter Visit Diagnoses Diagnosis Visit for screening mammogram Other screening mammogram documented in this encounter Additional Health Concerns Assessment Noted Time PHQ-9 Depression Total Score: 0 12/15/19 20 2:03 PM CDT documented as of this encounter Care Teams Commercial Pest Control Representative Relationship Specialty [place] [address] [place], [place] [phone] PCP - General Family Practice 09/11/15 Clinic - [address] [address] Assigned PCP 03/08/25 documented as of this encounter
[2025-03-28] VITALS (10 sets, daily range): BP systolic 118–137; BP diastolic 74–89; PULSE 88–101; RESP 14–26; TEMP 36.8; O2SAT 95–99; BMI 29.8
--- NOTE | 2025-03-28 18:26 | ED_ITS ---
HPI - General Adult General Date Seen: 03/28/25 Chief complaint: Insect Bite Stated complaint: Allergic reaction Time Seen by Provider: 03/28/25 18:13 Source: patient Mode of arrival: EMS Limitations: no limitations History of Present Illness HPI narrative: Patient is a 44-year-old female with a history of how allergic reaction to wasps stings. She states she was working outside when she got stung by multiple wasps. Unsure exactly home any but she feels like the sting to her right scalp was swelling and swelling down into her face. She was also feeling short of breath and having some chest tightness. Due to this she called in asked were she should go and went urgent care. There they were concerned about anaphylaxis and she was given epinephrine. She states the shortness of breath improved along with the chest tightness. She no longer feels short of breath and that chest tightness is only mildly there. She was still feeling very itchy and EMS gave her 50 mg IV Benadryl. The itchiness has improved but is still not gone. Denies any fevers or chills. Denies any abdominal pain. Does have some mild nausea that just started in the ambulance ride down here. No other concerns noted. Related Data Previous Rx's ?Medication ?Instructions ?Recorded blood sugar diagnostic (Contour #100 ea 07/27/23 Next Test Strips) semaglutide 1 mg/dose (4 mg/3 mL) 1 mg (0.75 mL) subcu t QWEEK #9 mL 11/02/24 subcutaneous pen injector (Ozempic) epinephrine 0.3 mg/0.3 mL 0.3 mg (0.3 mL) IM Q5-15M CA N #2 ea 03/28/25 injection, auto-injector (EpiPen 2-Kenneth) Allergies Allergy/AdvReac Type Severity Reaction Status Date / Time bee venom protein (honey bee) Allergy Severe swelling Verified 03/28/25 11:34 acetaminophen Allergy Intermediate Rash Verified 03/28/25 11:34 dulaglutide (From Trulicity) Allergy Intermediate Difficulty Verified 03/28/25 11:34 Breathing gadodiamide Allergy Intermediate Hives Verified 03/28/25 11:34 hydrocodone Allergy Intermediate itchy face Verified 03/28/25 11:34 Iodinated Contrast Media Allergy Intermediate Hives Verified 03/28/25 11:34 penicillin V Allergy Intermediate Swelling Verified 03/28/25 11:34 of the Eye tramadol Allergy Mild itch Verified 03/28/25 11:34 Coconut Fatty Acids Allergy Unknown Uncoded 03/28/25 11:34 Review of Systems Status of ROS: Reports: 10 or more systems reviewed and unremarkable except as noted in History and below [facility] Medical History Tobacco use ?Z72.0 - Tobacco use (ICD-10) Attention deficit hyperactivity disorder (11/12/11) ?F90.9 - Attention-deficit hyperactivity disorder, unspecified type (ICD-10) Dysphagia (~09/2024) ?R13.10 - Dysphagia, unspecified (ICD-10) Restless legs syndrome (04/05/13) ?G25.81 - Restless legs syndrome (ICD-10) Stage 1 chronic kidney disease ?N18.1 - Chronic kidney disease, stage 1 (ICD-10) Type 2 diabetes mellitus ?E11.9 - Type 2 diabetes mellitus without complications (ICD-10) Hyperlipidemia ?E78.5 - Hyperlipidemia, unspecified (ICD-10) Diverticulitis ?K57.92 - Diverticulitis of intestine, part unspecified, without perforation or abscess without bleeding (ICD-10) COVID ?U07.1 - COVID-19 (ICD-10) Calculus of kidney ?N20.0 - Calculus of kidney (ICD-10) History of anaphylactic shock (10/25/13) ?Z87.892 - Personal history of anaphylaxis (ICD-10) Surgical History S/P ?Z98.891 - History of uterine scar from previous surgery (ICD-10) Status post right foot surgery ?Z98.890 - Other specified postprocedural states (ICD-10) History of tubal ligation (04/05/13) ?Z98.51 - Tubal ligation status (ICD-10) History of nasal septoplasty (04/05/13) ?Z98.890 - Other specified postprocedural states (ICD-10) History of hysterectomy ?Z90.710 - Acquired absence of both cervix and uterus (ICD-10) Family History Family/Other Coronary artery disease Stroke Diabetes High blood pressure Maternal Grandmother Ovarian cancer Paternal Grandmother Ovarian cancer Social History Narrative: 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 does not drink alcohol, does not use illicit drugs, smoker 0.5 packs per day Smoking Status: Current every day smoker What tobacco products do you use: cigarettes How often do you have a drink containing alcohol: 2-4 times a month How often do you have six or more drinks on one occasion: Never AUDIT-C Alcohol total score: 2 Non-prescribed substance use: denies use Exam Narrative: Exam Narrative: Const: Well-nourished, Well-developed, in no distress Eyes: PERRL, no conjunctival injection, and symmetrical lids HENT: Atraumatic external nose and ears. Moist mucous membranes. Neck: Symmetric, trachea midline, No thyromegaly. CVS: RRR, No murmurs or gallops. Peripheral pulses 2+ and equal in all extremities RESP: Unlabored respiratory effort. Clear to auscultation bilaterally. GI: Nontender/Nondistended, No rebound or guarding. MSK:Extremities w/o deformity, Normal Active ROM Skin: Warm, Dry. No rashes or lesions. Neuro: Normal Muscle tone, No focal neurological deficits. Psych: Awake, Alert, & Oriented x3. Appropriate mood and affect. Const: Vital Signs, click to edit/add: Vital Signs - 24 hr 03/28/25 18:12 Temperature 98.2 F Pulse Rate [Pulse Oximeter] 101 H Respiratory Rate 18 Blood Pressure [Ri ght Upper Arm] 137/89 Pulse Oximetry 96 Oxygen Delivery Me thod Room Air Course Vital Signs Vital signs: Initial Vital Signs Temperature 98.2 F 03/28/25 18:12 Temperature Source Temporal Artery Scan 03/28/25 18:12 Pulse Rate 101 H 03/28/25 18:12 Respiratory Rate 18 03/28/25 18:12 Blood Pressure 137/89 03/28/25 18:12 Blood Pressure Mean 105 03/28/25 18:12 Pulse Oximetry 96 03/28/25 18:12 Oxygen Delivery Method Room Air 03/28/25 18:12 Vital Signs Temperature 98.2 F 03/28/25 18:12 Pulse Rate 101 H 03/28/25 18:12 Respiratory Rate 18 03/28/25 18:12 Blood Pressure 137/89 03/28/25 18:12 Pulse Oximetry 96 03/28/25 18:12 Oxygen Delivery Method Room Air 03/28/25 18:12 Temperature 98.2 F 03/28/25 18:12 Pulse Rate 101 H 03/28/25 18:12 Respiratory Rate 18 03/28/25 18:12 Blood Pressure 137/89 03/28/25 18:12 Pulse Oximetry 96 03/28/25 18:12 Oxygen Delivery Method Room Air 03/28/25 18:12 Medications Administered Medications: Discontinued Medications Generic Name Dose Route Start Last Admin Trade Name Freq PRN Reason Stop Dose Admin Famotidine 20 mg 03/28/25 18:25 03/28/25 18:33 Famotidine 20 Mg Tablet PO 03/28/25 18:26 20 mg ONCE ONE Administration Medical Decision Making MDM Narrative Medical decision making narrative: Patient is a 44-year-old female presenting to the emergency department for concern of anaphylaxis. Based on description does sound like she likely was having some anaphylaxis but does not appear to be going through anaphylaxis currently. Do not believe further epinephrine is needed. Will give her a dose of Pepcid to help with the itchiness. She declined any nausea medication. After an hour half of monitoring patient was feeling much better. Vital signs are stable in the emergency department. I believe she is safe for discharge. No signs of anaphylaxis. Will prescribe her an EpiPen and steroids. She is agreeable to this plan. Discharge Plan Discharge Clinical Impression: Anaphylactic reaction to wasp sting Qualifiers: Encounter type: initial encounter Injury intent: accidental or unintentional Qualified Code(s): T63.461A - Toxic effect of venom of wasps, accidental (unintentional), initial encounter Patient Disposition: Home, Self-Care Condition: Stable Instructions: Insect Bite or Sting (ED) Additional Instructions: supervisor reinforced steel placing the prednisone from instymeds and start taking it today. Also take antihistamine such as Benadryl as needed for your dizziness. Can also take Pepcid once daily. supervisor reinforced steel placing the EpiPen also. Return to emergency department for new or worsening symptoms Prescriptions: New epinephrine [EpiPen 2-Kenneth] 0.3 mg/0.3 mL auto-injector 0.3 mg IM Q5-15M PRNQty: 2 0RF Rx Instructions: do not exceed 3 doses per episode No Action (DME) Contour Next Test Strips Strip See Rx Instructions .Route Qty: 100 3RF Rx Instructions: As directed Ozempic 1 mg/dose (4 mg/3 mL) pen injector 1 mg subcut QWEEK Qty: 9 1RF Rx Instructions: 1mg once weekly Follow Up/Referrals: Maricel Johnson PA-C [Primary Care Provider, Family Practice] Stand Alone Forms: MyHealth Info Instructions
[2025-03-28] MEDS: FAMOTIDINE 20 MG TABLET PO (18:33)
--- OUTSIDE RECORDS SUMMARY | 2025-03-28 18:34 | XMS_ITS | Encounter Summary ---
Author Organization [facility] Address [address] [place] [address] Care Team Providers Care Tug Boat Captain Name Role Phone Carol Lambert MD Primary Care Provider [phone] Carol Lambert MD Unavailable Rosario Ku [facility] Unavailable [phone] Carol Lambert MD Unavailable Clinic - [facility] Unavail able Encounter Details Date Type Department Care Team (Late st Contact Info) Description 07/27/2019 MyC Medical Advice [facility] [id number] [place] [address] Rosario Ku, [facility] [address] [place] [address] Social History Tobacco Use Types [...] on file 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 Gender Identity Female 02/27/2025 12:43 PM CDT Sexual Orientation Not on file 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 Not on file Not on file documented as of this encounter Plan of Treatment Upcoming Encounters Date Type Department Care Team (Late st Contact Info) Description 03/29/2025 3:00 PM CDT Appointment [facility] [address] [facility], [address] [place] [address] Nicolás Gillis APRN ORGAN PIPE VOICER [address] [place] [address] 03/29/2025 3:30 PM CDT Appointment [facility] [address] [facility], [address] [place] [phone] Nicolás Gillis APRN ORGAN PIPE VOICER [address] [place] [address] 05/01/2025 9:00 AM CDT Office Visit [facility] [address] [place] [address] Nicolás Gillis APRN ORGAN PIPE VOICER [address] [place] [address] [place] [address] [place], [place] [phone] documented as of this encounter Visit Diagnoses Not on filedocumented in this encounter Additional Health Concerns Infection Onset Date Last Indicated Resolved Time Rule Out COVID-19 05/10/2020 05/10/2020 05/11/2020 7:32 PM CDT Rule Out COVID-19 08/17/2020 08/17/2020 08/18/2020 1:01 PM BULLET CHARGING MACHINE OPERATOR Assessment Noted Time PHQ-9 Depression Total Score: 0 06/28/20 19 7:04 AM BULLET CHARGING MACHINE OPERATOR documented as of this encounter Care Teams Tug Boat Captain Relationship Specialty [place] [address] [place] [address] PCP - General Family Practice 09/11/15 [place] [address] [place] [address] Assigned PCP 12/26/18 08/01/22 Rosario Ku, [facility] [address] [place] [address] Pharmacist Pharmacist 01/11/19 10/10/20 [place] [address] [place] [address] Assigned PCP 10/11/22 12/26/22 Clinic - [facility] [address] [place] [address] Assigned PCP 03/08/25 documented as of this encounter
--- OUTSIDE RECORDS SUMMARY | 2025-03-28 18:34 | XMS_ITS | Encounter Summary ---
Author Organization [facility] Address [address] [place] [address]. 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 Gender Identity Female 02/27/2025 12:43 PM CDT Sexual Orientation Not on file 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 Not on file Not on file documented as of this encounter Plan of Treatment Upcoming Encounters Date Type Department Care Team (Late st Contact Info) Description 03/29/2025 3:00 PM CDT Appointment [facility] [address] [facility], [address] [place] [address] Nicolás Gillis APRN SNAKE CHARMER [address] [place] [address] 03/29/2025 3:30 PM CDT Appointment [facility] [address] [facility], [address] [place] [address] Nicolás Gillis APRN SNAKE CHARMER [address] [place] [address] 05/01/2025 9:00 AM CDT Office Visit [facility] [address] [place] [address] Nicolás Gillis APRN SNAKE CHARMER [address] [place] [address] [place] [address] [place], [place] [phone] documented as of this encounter Visit Diagnoses Not on filedocumented in this encounter Additional Health Concerns Assessment Noted Time PHQ-9 Depression Total Score: 0 12/15/19 20 2:03 PM CDT documented as of this encounter Care Teams Nurse Care Manager Relationship Specialty [place] [address] [place] [address] PCP - General Family Practice 09/11/15 Clinic - [facility] [address] [place] [address] Assigned PCP 03/08/25 documented as of this encounter
--- OUTSIDE RECORDS SUMMARY | 2025-03-28 18:34 | XMS_ITS | Encounter Summary ---
Author Organization [facility] Address [address] [place] [address]. 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 [address] [facility], [address] [place] [address] Nicolás Gillis APRN SHIFT COMMANDER [address] [place], [place] [phone] 03/29/2025 3:[address] [facility] [address] [facility], [address] [place] [address] Nicolás Gillis APRN SHIFT COMMANDER [address] [place] [address] 05/01/2025 9:00 AM CDT Office Visit [facility] [address] [place] [address] Nicolás Gillis APRN SHIFT COMMANDER [address] [place] [address] [place] [address] [place] [address] documented as of this encounter Visit Diagnoses Not on filedocumented in this encounter Additional Health Concerns Infection Onset Date Last Indicated Resolved Time Rule Out COVID-19 05/10/2020 05/10/2020 05/11/2020 7:32 PM CDT Rule Out COVID-19 08/17/2020 08/17/2020 08/18/2020 1:01 PM SMOKING PIPES CLEANER Assessment Noted Time PHQ-9 Depression Total Score: 0 12/15/19 20 2:03 PM CDT documented as of this encounter Care Teams Office Lead Relationship Specialty [place] [address] [place] [address] PCP - General Family Practice 09/11/15 [place] [address] [place] [address] Assigned PCP 12/26/18 08/01/22 Rosario Ku [facility] [address] [place] [address] Pharmacist Pharmacist 01/11/19 10/10/20 [place] [address] [place] [address] Assigned PCP 10/11/22 12/26/22 Clinic - [facility] [address] [place] [address] Assigned PCP 03/08/25 documented as of this encounter
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
--- OUTSIDE RECORDS SUMMARY | 2025-03-28 18:34 | XMS_ITS | Encounter Summary ---
Author Organization [facility] Address [address] [place] [address] Care Team Providers Care Pants Closer Name Role Phone Xiang Moreno MD Primary Care Provider [phone] Dedrick Frazier Primary Care Provider Carol Lambert MD Primary Care Provider [phone] Carol Lambert MD Unavailable Richie Palm MD Unavailable Carol Salmon MD Unavailable Varsha Thompson MD Unavailable + Carol Lambert MD Unavailable Rosario Ku [facility] Unavailable Carol Lambert MD Unavailable [facility] Unavail able Encounter Details Date Type Department Care Team (Late st Contact Info) Description 05/11/[address] [address] [place] [address] Social History Tobacco Use Types Packs/Day Years Used Date Smoking Tobacco: Every Day Cigarettes 0.5 4 Smokeless Tobacco: Never Comments:less then half a pa ck Alcohol Use Standard Drinks/Week Comments Yes 0 (1 standard drink = 0.6 oz pur e alcohol) occ Comments No Sex and Gender Information Value Date Recorded Sex Assigned at Not on file 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 Gender Identity Female 02/27/2025 12:43 PM CDT Sexual Orientation Not on file 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 Not on file Not on file documented as of this encounter Plan of Treatment Upcoming Encounters Date Type Department Care Team (Late st Contact Info) Description 03/29/2025 3:00 PM CDT Appointment [facility] [address] [facility], [address] [place] [address] Nicolás Gillis APRN PROMOTION OFFICER [address] [place] [address] 03/29/2025 3:30 PM CDT Appointment [facility] [address] [facility], [address] [place] [address] Nicolás Gillis APRN PROMOTION OFFICER [address] [place] [address] 05/01/2025 9:00 AM CDT Office Visit [address] [address] Nicolás Gillis APRN PROMOTION OFFICER [address] [place] [address] [place] [address] [place] [address] documented as of this encounter Visit Diagnoses Not on filedocumented in this encounter Additional Health Concerns Infection Onset Date Last Indicated Resolved Time Rule Out COVID-19 05/10/2020 05/10/202005/1105/11/2020 7:32 PM CDT Rule Out COVID-19 08/17/2020 08/17/2020 08/18/2020 1:01 PM GUN SEALING MACHINE OPERATOR documented as of this encounter Care Teams Pants Closer Relationship Specialty Start Date End Date Xiang Moreno MD [address] [place] [address] PCP - General 10/01/01 02/27/13 Dedrick Frazier [address] [phone] PCP - General 02/28/13 09/10/15 [place] [address] [place] [address] PCP - General Family Practice 09/11/15 [place] [address] [place] [address] PCP - Assigned PCP 01/21/15 10/19/18 Richie Palm MD Assigned PCP 10/17/18 11/06/18 [place] [address] [place] [address] Assigned PCP 12/21/14 10/16/18 Varsha Thompson MD [address] [address] Assigned PCP 11/07/18 12/25/18 [place] [address] [place], [place] [address] Assigned PCP 12/26/18 08/01/22 Rosario Ku, [facility] [address] [place] [address] Pharmacist Pharmacist 01/11/19 10/10/20 [place] [address] [place], [place] [address] Assigned PCP 10/11/22 12/26/22 [facility] [address] [place], [place] [address] Assigned PCP 03/08/25 documented as of this encounter
--- OUTSIDE RECORDS SUMMARY | 2025-03-28 18:34 | XMS_ITS | Encounter Summary ---
Author Organization [place] Address [address] [place] [address]. 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 Contacts Contact Date/Time Type Contact Phone/Fax 02/21/2025 10:10 AM CDT Phone (Outgoing) Concepción Maldonado (Self) [phone] (M) Left Message Attempted to reach patient to: Schedule an appointment When patient returns call, please take this action: Assist with scheduling Reason for the visit: Preventive/Re-Establish care with Dr. Lambert When to schedule: Next available Additional comments/info: schedule patient with Dr. Lambert next avail for establish care/annual px If unable to schedule: Add a note to the telephone encounter noting the barrier and route back to primary care team andres Sprague Nursing Scheduler- [facility] 2 Primary Care- [place] [facility] documented in this encounter Plan of Treatment Upcoming Encounters Date Type Department Care Team (Late st Contact Info) Description 03/29/2025 3:00 PM CDT Appointment [facility] [address] [facility], [address] [place] [address] Nicolás Gillis APRN SHADOWGRAPH SCALE OPERATOR [address] [place] [address] 03/29/2025 3:30 PM CDT Appointment [facility] [address], [address] [place] [address] Nicolás Gillis APRN SHADOWGRAPH SCALE OPERATOR [address] [place], [place] [phone] 05/01/2025 9:00 AM CDT Office Visit [facility] [address] [place] [address] Nicolás Gillis APRN SHADOWGRAPH SCALE OPERATOR [address] [place], [place] [phone] [place] [address] [place], [place] [phone] documented as of this encounter Visit Diagnoses Not on filedocumented in this encounter Additional Health Concerns Assessment Noted Time PHQ-9 Depression Total Score: 0 12/15/19 20 2:03 PM CDT documented as of this encounter Care Teams Assistant Director Relationship Specialty Start [place] [id number] [place] [phone] PCP - General Family Practice 09/11/15 documented as of this encounter
--- OUTSIDE RECORDS SUMMARY | 2025-03-28 18:34 | XMS_ITS | Encounter Summary ---
Author Organization [place] Address [address] [place] [address] Care Team Providers Care Field Logistics Coordinator Name Role Phone Carol Lambert MD Primary Care Provider [phone] Carol Lambert MD Unavailable Rosario Ku [facility] Unavailable [phone] Carol Lambert MD Unavailable Clinic - [facility] Unavail able Reason for Visit * Reason Onset Date Comments Medication Follow-up 01/13/2019 Encounter Details Date Type Department Care Team (Late st Contact Info) Description 01/13/2019 MyC Medical Advice [facility] [address] [place] [address] Rosario Ku, [facility] [address] [place] [address] Medication Follow-up Social History Tobacco Use Types [...] on file Legal Sex Female 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 Gender Identity Female 02/27/2025 12:43 PM CDT Sexual Orientation Not on file 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 Not on file Not on file documented as of this encounter Plan of Treatment Upcoming Encounters Date Type Department Care Team (Late st Contact Info) Description 03/29/2025 3:00 PM CDT Appointment [facility] [address] [facility], [address] [place] [address] Nicolás Gillis APRN POWER GRADER OPERATOR [address] [place] [address] 03/29/2025 3:30 PM CDT Appointment [facility] [address] [facility], [address] [place] [address] Nicolás Gillis APRN POWER GRADER OPERATOR [address] [place] [address] 05/01/2025 9:00 AM CDT Office Visit [facility] [address] [place] [address] Nicolás Gillis APRN POWER GRADER OPERATOR [address] [place] [address] [place] [address] [place] [address] documented as of this encounter Visit Diagnoses Diagnosis Chronic allergic conjunctivitis- Primary Other chronic allergic conjunctivitis Tobacco abuse Tobacco use disorder documented in this encounter Additional Health Concerns Infection Onset Date Last Indicated Resolved Time Rule Out COVID-19 05/10/2020 05/10/2020 05/11/2020 7:32 PM CDT Rule Out COVID-19 08/17/2020 08/17/2020 08/18/2020 1:01 PM WAREHOUSE OPERATIONS ASSOCIATE Assessment Noted Time PHQ-9 Depression Total Score: 9 12/17/19 7:04 AM CDT documented as of this encounter Care Teams Field Logistics Coordinator Relationship Specialty Start Date End Date [place], [place] [address] [place] [address] PCP - General Family Practice 09/11/15 [place] [address] [place] [address] Assigned PCP 12/26/18 08/01/22 Rosario Ku, [facility] [address] [place] [address] Pharmacist Pharmacist 01/11/19 10/10/20 [place] [address] [place] [address] Assigned PCP 10/11/22 12/26/22 [facility] [address] [place] [address] Assigned PCP 03/08/25 documented as of this encounter
--- OUTSIDE RECORDS SUMMARY | 2025-03-28 18:34 | XMS_ITS | Encounter Summary ---
Author Organization [place] Address [address] [facility] 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 Not on file Not on file documented as of this encounter Plan of Treatment Upcoming Encounters Date Type Department Care Team (Late st Contact Info) Description 03/29/2025 3:00 PM CDT Appointment [facility] [address] [facility] [place] [address] Nicolás Gillis APRN TELEPHONE EXCHANGE OPERATOR [address] [place], [place] [phone] 03/29/2025 3:30 PM CDT Appointment [facility] [address] [facility], [address] [place] [address] Nicolás Gillis APRN TELEPHONE EXCHANGE OPERATOR [address] [place] [address] 05/01/2025 9:00 AM CDT Office Visit [facility] [address] [place] [address] Nicolás Gillis APRN TELEPHONE EXCHANGE OPERATOR [address] [place] [address] [place] [address] [place] [address] documented as of this encounter Visit Diagnoses Not on filedocumented in this encounter Additional Health Concerns Assessment Noted Time PHQ-9 Depression Total Score: 0 12/15/19 20 2:03 PM CDT documented as of this encounter Care Teams Director Of Business Systems Relationship Specialty Start [place] Lambert [place] [id number] [place] [phone] PCP - General Family Practice 09/11/15 Clinic - [facility] [id number] [place] [phone] Assigned PCP 03/08/25 documented as of this encounter
--- OUTSIDE RECORDS SUMMARY | 2025-03-28 18:34 | XMS_ITS | Encounter Summary ---
Author Organization [facility] Address [address] [facility] 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 Not on file Not on file documented as of this encounter Plan of Treatment Upcoming Encounters Date Type Department Care Team (Late st Contact Info) Description 03/29/2025 3:00 PM CDT Appointment [facility] [address] [facility] [place] [address] Nicolás Gillis APRN NURSING ATTENDANT [address] [place], [place] [phone] 03/29/2025 3:30 PM CDT Appointment [facility] [address] [facility], [address] [place] [address] Nicolás Gillis APRN NURSING ATTENDANT [address] [place] [address] 05/01/2025 9:00 AM CDT Office Visit [facility] [address] [place] [address] Nicolás Gillis APRN NURSING ATTENDANT [address] [place] [address] [place] [address] [place] [address] documented as of this encounter Visit Diagnoses Not on filedocumented in this encounter Additional Health Concerns Assessment Noted Time PHQ-9 Depression Total Score: 0 12/15/19 20 2:03 PM CDT documented as of this encounter Care Teams Assistant Professor Of Drama Relationship Specialty Start Date [place] Lambert [place] [id number] [place] [phone] PCP - General Family Practice 09/11/15 Clinic - [facility] [address] [place] [phone] Assigned PCP 03/08/25 documented as of this encounter
--- OUTSIDE RECORDS SUMMARY | 2025-03-28 18:34 | XMS_ITS | Encounter Summary ---
Author Organization [place] Address [address] [place] [address]. [place] [address] Care Team Providers Care Shipping And Receiving Weigher Name Role Phone Carol Lambert MD Primary Care Provider Carol Lambert MD Unavailable Richie Palm MD Unavailable [facility] Carol Davis MD Unavailable Varsha Thompson MD Unavailable + Carol Lambert MD Unavailable Rosario Ku [facility] Unavailable Carol Lambert MD Unavailable Clinic - [facility] Unavail able Encounter Details Date Type Department Care Team (Late st Contact Info) Description 10/27/2016 MyC Medical Advice [facility] [address] [place] [address] [place] [address] [place] [address] Social History Tobacco Use Types Packs/Day Years Used Date Smoking Tobacco: Every Day Cigarettes 0.5 4 Smokeless Tobacco: Never Alcohol Use Standard Drinks/Week Comments Yes 0 (1 standard drink = 0.6 oz pur e alcohol) occ Comments No Sex and Gender Information Value Date Recorded Sex Assigned at Not on file Legal Sex Female 3:21 AM TRAIN CONTROL TECHNICIAN Gender Identity Female 02/27/2025 12:43 PM CDT Sexual Orientation Not on file 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 Not on file Not on file documented as of this encounter Plan of Treatment Upcoming Encounters Date Type Department Care Team (Late st Contact Info) Description 03/29/2025 3:00 PM CDT Appointment [facility] [address] [facility], [address] [place] [address] Nicolás Gillis APRN PLASTERER STUCCO [address] [place] [address] 03/29/2025 3:30 PM CDT Appointment [facility] [address] [facility] [place] [address] Nicolás Gillis APRN [facility] [address] [place] [address] 05/01/2025 9:00 AM CDT Office Visit [address] [address] Nicolás Gillis APRN [facility] [address] [place] [address] [place] [address] [place] [address] documented as of this encounter Visit Diagnoses Not on filedocumented in this encounter Additional Health Concerns Infection Onset Date Last Indicated Resolved Time Rule Out COVID-19 05/10/2020 05/10/2020 05/11/2020 7:32 PM CDT Rule Out COVID-19 08/17/2020 08/17/2020 08/18/2020 1:01 PM TRAIN CONTROL TECHNICIAN Assessment Noted Time PHQ-9 Depression Total Score: 7 10/02/19 17 7:16 AM TRAIN CONTROL TECHNICIAN documented as of this encounter Care Teams Shipping And Receiving Weigher Relationship Specialty [place] [address] [place] [address] PCP - General Family Practice 09/11/15 [place] [address] [place] [address] PCP - Assigned PCP 01/21/15 10/19/18 Richie Palm MD Assigned PCP 10/17/18 11/06/18 [place] [address] [place] [address] Assigned PCP 12/21/14 10/16/18 Varsha Thompson MD [facility] [address] [address] Assigned PCP 11/07/18 12/25/18 [place] [address] [place] [address] Assigned PCP 12/26/18 08/01/22 Rosario Ku, [facility] [address] [facility] [facility] [place] [address] Pharmacist Pharmacist 01/11/19 10/10/20 [place] [address] [place] [address] Assigned PCP 10/11/22 12/26/22 [place] [id number] [place] [address] Assigned PCP 03/08/25 documented as of this encounter
--- OUTSIDE RECORDS SUMMARY | 2025-03-28 18:34 | XMS_ITS | Encounter Summary ---
Author Organization [place] Address [address] [place] [address] Care Team Providers Care Associate Attorney Name Role Phone Xiang Moreno MD Primary Care Provider [phone] Dedrick Frazier Primary Care Provider Carol Lambert MD Primary Care Provider [phone] Carol Lambert MD Unavailable Richie Palm MD Unavailable Carol Salmon MD Unavailable Varsha Thompson MD Unavailable + Carol Lambert MD Unavailable Rosario Ku [facility] Unavailable [phone] Carol Lambert MD Unavailable [facility] Unavail able Encounter Details Date Type Department Care Team (Late st Contact Info) Description 01/03/[address] [address] Enrique Garcia MD 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 9. Live female infant. OPERATION: 1. Repeat section. 2. Bilateral tubal ligation. 3. Ly sis of adhesions. ANESTHESIA: Spinal. HISTORY: Concepción Dumont is a 22-year-old patient who had he r care at [facility] by myself. Her was complicated with multiple uri nary tract infections. She was seen by [facility], Dr. Lovett and also by Urolog y. She has been on antibiotics throughout the . During the , ureteral stents were placed to help reduce these infections. Her was also complicated by gestational diabetes which required insulin. She was treated by Dr. Gomez, silver spray worker for the diabetes mellitus. T he patient suffers from depression. This was under control. She has two other children and her secon d was complicated by ARDS and sepsis requiring [facility] time she was extremely ill. She [...] Chiang 01/10/2003 3:58 PM 14:11 Discharge Summary -[facility] Darcie GARCIA () [Entered: 00:00 Shot Blaster ([facility])] ADMISSION DIAGNOS IS: 1. Intrauterine gestation [...] livered. Lysis of adhesions. HOSPITAL COURSE: Concepción Zaragoza Alysadavid's hospital course was smooth in spite of her complications. She was discharged in good condition. Hemoglobin was 10.5 g/dL. DISCHA RGE PLAN: She is sent home with Percocet. She is to continue her vitamins. She is to call for any complications. She is to call Dr. Hernandez, her cocoa powder mixer operator, to restart her antidepressant medic ations and for follow-up in two weeks. Darcie GARCIA MD [place]: [facility] Document: [id number] [place], [place] Name: CONCEPCIÓN SIMPSON Please refer to the Nursing Discharge Information Sheet for more detailed informati on regarding diet, physical activity limitations, medications and other pertinent instructions given to this patient upon discharge. DISCHARGE SUMMARY Page 2 of 1 LCN: 4N DSC: 01/06/2003 [place], [place] Name: CONCEPCIÓN DUMONT MR#: : Admit Date: -18 01/03/2003 Doctor: Darcie GARCIA MD Please refer [...] Info) Description 03/29/2025 3:00 PM CDT Appointment [facility] [address] [facility] [place] [address] Nicolás Gillis APRN DEPUTY REGISTER OF DEEDS [address] [place] [address] 03/29/2025 3:30 PM CDT Appointment [facility] [address] [facility] [place] [address] Nicolás Gillis APRN DEPUTY REGISTER OF DEEDS [address] [place] [address] 05/01/2025 9:00 AM CDT Office Visit [facility] [address] [place] [address] Nicolás Gillis APRN DEPUTY REGISTER OF DEEDS [address] [place] [address] [place] [address] [place] [address] documented as of this encounter Visit Diagnoses Diagnosis OP REPT; DIS SUMM 01/06- Primary documented in this encounter Additional Health Concerns Infection Onset Date Last Indicated Resolved Time Rule Out COVID-19 05/10/2020 05/10/2020 05/11/2020 7:32 PM CDT Rule Out COVID-19 08/17/2020 08/17/2020 08/18/2020 1:01 PM OBJECTS CONSERVATOR documented as of this encounter Care Teams Associate Attorney Relationship Specialty Start Date End Date Xiang Moreno MD [address] [place] [address] PCP - General 10/01/01 02/27/13 Dedrick Frazier [facility] [address] [place] [address] PCP - General 02/28/13 09/10/15 [place] [address] [place] [address] PCP - General Family Practice 09/11/15 [place] [address] [place] [address] PCP - Assigned PCP 01/21/15 10/19/18 Richie Palm MD Assigned PCP 10/17/18 11/06/18 [place] [address] [place] [address] Assigned PCP 12/21/14 10/16/18 Varsha Thompson MD [facility] [address] [place] [address] Assigned PCP 11/07/18 12/25/18 [place] [address] [place], [place] [phone] Assigned PCP 12/26/18 08/01/22 Rosario Ku, [facility] [address] [place] [address] Pharmacist Pharmacist 01/11/19 10/10/20 [place] [address] [place] [address] Assigned PCP 10/11/22 12/26/22 [facility] [address] [place] [address] Assigned PCP 03/08/25 documented as of this encounter
--- OUTSIDE RECORDS SUMMARY | 2025-03-28 18:34 | XMS_ITS | Encounter Summary ---
Author Organization [place] Address [address] [place] [address]. 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 [address] [place] [address] Nicolás Gillis APRN CLINICAL ADMISSIONS MANAGER [address] [place] [address] 03/29/2025 3:[address] [facility] [address] [place] [address] Nicolás Gillis APRN CLINICAL ADMISSIONS MANAGER [address] [place], [place] [phone] 05/01/2025 9:00 AM CDT Office Visit [facility] [address] [place] [address] Nicolás Gillis APRN CLINICAL ADMISSIONS MANAGER [address] [place] [address] [place] [address] [place], [place] [phone] documented as of this encounter Visit Diagnoses Not on filedocumented in this encounter Additional Health Concerns Assessment Noted Time PHQ-9 Depression Total Score: 0 12/15/19 20 2:03 PM CDT documented as of this encounter Care Teams Files Supervisor Relationship Specialty [place] [address] [place], [place] [phone] PCP - General Family Practice 09/11/15 documented as of this encounter
--- OUTSIDE RECORDS SUMMARY | 2025-03-28 18:34 | XMS_ITS | Clinical Summary ---
Author Organization [facility] Address [address] [place] [address] Care Team Providers Care Packing Machine Feeder Name Role Phone Carol Lambert MD Primary Care Provider [facility] Unavail able Allergies Active Allergy Reactions Criticality Noted Date Comments Amoxicillin Itching 07/28/2016 Codeine Itching 07/28/2016 Contrast Dye Hives 06/18/2009 Penicillins Rash Low 02/27/2013 Hydrocodone-Acetaminophen Hives 02/27/2013 Medications metFORMIN (GLUCOPHAGE XR) 500 MG 24 hr tablet 06/26/2022 Active OZEMPIC, 1 MG/DOSE, 4 MG/3ML pen 1 mg. 11/02/2024 Active cyclobenzaprine (FLEXERIL) 10 MG tabletIndicatio ns:Fibromyalgia Take 0.5-1 tablets (5-10 mg) by mouth 3 times daily as needed for muscle spasms. 30 tablet 1 02/20/2025 Active Active Problems Patient Care Coordination No te Formatting of this note migh t be different from the original. [email or web address] Problem Noted Date Diagnosed Date Restless leg syndrome 06/27/2019 Assessment & Plan (06/27/2019 10:24 AM CHIEF SERVICE DISPATCHER): Feels leg spasms at night Start Requip Obesity (BMI 35.0-39.9) with comorbidity 019 Obesity 10/10/2016 Attention deficit hyperactiv ity disorder (ADHD), combined type 08/21/2015 Type 2 diabetes mellitus without complication Assessment & Plan (06/27/2019 10:25 AM CHIEF SERVICE DISPATCHER): Outpatient blood sugars 150-160 Check A1C today Hyperlipidemia LDL goal <130 01/12/2015 Chronic abdominal pain 01/12/2015 Assessment & Plan (06/27/2019 10:27 AM CHIEF SERVICE DISPATCHER): Recent ER visit diarrhea 06/20/19 Using metamucil which is working well to manage stools Menorrhagia 01/12/2015 Nephrolithiasis 01/12/2015 Pyelonephritis 01/12/2015 Overview (01/12/2015): S/p scarring of the R kidney. CARDIOVASCULAR SCREENING; LDL GOAL LESS THAN 160 06/16/2010 Assessment & Plan (06/27/2019 10:28 AM CHIEF SERVICE DISPATCHER): Trying to eat healthier diet - worried about having stroke/heart attack Check fasting lipids today Diabetes mellitus of mother, complicating , childbirth, or the puerperium, unspecified as to episode of care(648.00) 01/13/2003 Other ureteric obstruction 11/28/2002 High-risk 11/28/2002 Overview (05/17/2015): Problem list name updated by automated process. Provider to review TOBACCO ABUSE-CONTINUOUS 09/02/2002 Overview (08/01/2019): Quit 07/21/19 Assessment & Plan (06/27/2019 10:17 AM CHIEF SERVICE DISPATCHER): Continues smoking Stopped chantix as made her [...] automated process. Provider to review and confirm. Encounters Date Type Department Care Team Description 03/22/2025 4:00 PM CDT Ancillary Procedure [address] [address] Nicolás Gillis APRN UNDERCUTTER Visit for screening mammogram 03/22/2025 Travel 03/13/2025 4:46 PM CDT - 03/13/2025 11:59 PM CDT Hospital Encounter [facility] [address] [place] [address] Nicolás Gillis APRN CNP Throat pain; Thyroid nodule Discharge Disposition: Home or Self Care 03/13/2025 Travel 02/21/[address] [address] Nicolás Gillis APRN UNDERCUTTER Appointment (Re-Establish Care/Annual PX w/Fausto) 02/21/2025 Results Follow-Up [address] [address] Nicolás Gillis APRN UNDERCUTTER Subj: Message about your results 02/20/2025 3:30 PM CDT Office Visit [address] [address] Nicolás Gillis APRN CNP Throat pain (Primary Dx); Thyroid nodule; Dysphagia, unspecified type; Fibromyalgia; Moapa's syndrome; Type 2 diabetes mellitus without complication, without long-term current use of insulin (H); Visit for screening mammogram 02/20/2025 Travel 01/30/2025 MyC Medical Advice [address] [address] Carol Lambert MD from Last 3 Months Immunizations Immunization Administration Dates Next Due COVID-19 Monovalent 18+ [...] on file Legal Sex Female 3:21 AM CHIEF SERVICE DISPATCHER Gender Identity Female 02/27/2025 12:43 PM CDT [...] F) 02/20/2025 3:21 PM CDT Respiratory Rate 16 08/17/2020 10:03 AM CHIEF SERVICE DISPATCHER Oxygen Saturation 100% 02/20/2025 3:21 PM CDT Inhaled Oxygen Concentration - - Weight 73.9 kg (163 lb) 02/20/2025 3:21 PM CDT Height 157.5 cm (5' 2) 02/20/2025 3:21 PM CDT Body Mass Index 29.81 02/20/2025 3:21 PM CDT Plan of Treatment Upcoming Encounters Date Type Department Care Team (Late st Contact Info) Description 03/29/2025 3:00 PM CDT Appointment [facility] [address], [address] [place] [address] Nicolás Gillis APRN UNDERCUTTER [address] [place] [address] 03/29/2025 3:30 PM CDT Appointment [facility] [address], [address] [place] [address] Nicolás Gillis APRN UNDERCUTTER [address] [place] [address] 05/01/2025 9:00 AM CDT Office Visit [address] [phone] Nicolás Gillis APRN UNDERCUTTER [address] [place] [address] [place] [address] [place] [address] Health Maintenance Due Date Last Done Comments ADVANCE CARE PLANNING 1980 HEPATITIS C SCREENING 1999 HEPATITIS B VACCINE (1 of 3 - 19+ 3-dose series) 2000 DIABETIC FOOT EXAM 12/16/2019 12/15/2018, 0 12/15/2018, 09/09/2017, Additional history exists MICROALBUMIN 12/16/2019 12/15/2018, 09/18, 09/16/2017, Additional history exists YEARLY PREVENTIVE VISIT 12/16/2019 12/16/19 19, 01/12/2015, 02/13/2006, Additional history exists A1C 12/26/2019 06/27/2019, 050 08/2018, 06/10/2018, Additional history exists ANNUAL REVIEW OF HM ORDERS 05/04/2020 05/04/2019 LIPID 06/27/2020 06/27/2019, 050 08/2018, 09/09/2017, Additional history exists BMP 08/22/2020 08/22/2019, 11/2018, 11/07/2018, Additional history exists HPV TEST 08/17/2021 01/12/2015 PAP 08/17/2021 08/17/2016, 12/16, 07/22/2004, Additional history exists EYE EXAM 07/04/2022 07/04/2021, 06/17, 04/26/2020, Additional history exists COVID-19 VACCINE ( season) 2024 09/26/2021, 03/19/2021, 02/19/2021 INFLUENZA VACCINE (#1) 2025 9 (Declined), 06/17/2017, 07/13/2015 NICOTINE/TOBACCO CESSATION COUNSELING Q 1 YR 02/20/2026 02/20/2025, 06/27/2019, 05/04/2019, Additional history exists MAMMO SCREENING 03/22/2027 03/22/2025 PNEUMOCOCCAL VACCINE: PEDIATRICS (0 to 5 YEARS) AND AT-RISK PATIENTS (6 to 49 YEARS) (3 of 3 - PCV20 or PCV21) 2031 06/17/2017, 07/13/2015 ZOSTER VACCINE (1 of 2) 2031 DTAP/TDAP/TD VACCINE (4 - Td or Tdap) 08/24/2032 08/24/2022, 04/05/2013, 07/22/2004 HIV SCREENING Completed 08/01/2002 PHQ-2 (once per calendar year) Completed 02/20/2025, 12/26/2019, 12/15/2019, Additional history exists HPV VACCINE (No Doses Required) Completed MENINGITIS VACCINE Aged Out No longer eligible based on patient's age to complete this topic Procedures Procedure Name Priority Date/Time Associated Diagnosis Comments MA SCREENING BILATERAL W/ DIRK Routine 03/22/2025 3:48 PM CDT Visit for screening mammogram US THYROID Routine 03/13/2025 5:16 PM CDT Throat pain Thyroid nodule TSH WITH FREE T4 REFLEX Routine 02/20/2025 3:59 PM CDT Throat pain Thyroid nodule PATHOLOGY RESULT - HIM SCAN 12/26/2024 12:00 AM CDT UPPER GI ENDOSCOPY - HIM SCAN 12/26/2024 12:00 AM CDT UPPER GI ENDOSCOPY - HIM SCAN 12/26/2024 12:00 AM CDT UPPER GI ENDOSCOPY - HIM SCAN 12/26/2024 12:00 AM CDT EYE EXAM - HIM SCAN Routine 07/04/2021 BASIC METABOLIC PANEL STAT 08/22/2019 7:12 AM CHIEF SERVICE DISPATCHER LIPID REFLEX TO DIRECT LDL PANEL Routine 06/27/2019 10:55 AM CHIEF SERVICE DISPATCHER Hyperlipidemia LDL goal <130 HEMOGLOBIN A1C Routine 06/27/2019 10:55 AM CHIEF SERVICE DISPATCHER Type 2 diabetes mellitus without complication, without [...] & 2 ANTIBODY Routine 08/01/2002 12:27 PM CHIEF SERVICE DISPATCHER Supervis Other Normal Preg from Last 3 Months or Most Recently Relevant to Health Maintenance Results * (ABNORMAL) MA Screening Bilateral w/ [...] of the left breast. us Nicolás Gillis APRN, CNP IMG MAMMOGRAPHY ORDERABLES Final Result * US [...] Liborio Pittman et al. Journal of the [employer] 2017. Volume 14 (2017), Issue 5, [id number]. Narrative 03/13/2025 10:26 PM CDT EXAM: US THYROID LOCATION: [facility] DATE: 03/13/2025 INDICATION: Throat pain, Thyroid nodule [...] MD - 03/13/2025 EXAM: US THYROID LOCATION: [facility] DATE: 03/13/2025 INDICATION: Throat pain, Thyroid nodule [...] Liborio Pittman et al. Journal of the [employer] of Nhhckmyov8153. Volume 14 (2017), Issue 5, [id number]. Nicolás Gillis APRN UNDERCUTTER IMG US ORDERABLES Final Res ult * TSH with free T4 reflex (02/20/2025 3:59 PM CDT) TSH 0.71 0.30 - 4.20 uIU/mL 02/21/2025 4:10 AM CDT [facility] Blood BLOOD SPECIMEN / Unknown Venipuncture / Unknown 02/20/2025 3:59 PM CDT 02/20/2025 3:59 PM CDT Nicolás Gillis APRN UNDERCUTTER LAB - BLOOD ORDERABLES Ne l Result [facility] [address] [facility], Room [address] [address] * Upper GI Endoscopy - HIM Scan (12/26/2024 12:00 AM CDT) 12/26/2024 us Provider Outside PROCEDURES Final Result * Upper GI Endoscopy - HIM Scan (12/26/2024 12:00 AM CDT) 12/26/2024 us Provider Outside PROCEDURES Final Result * Upper GI Endoscopy - HIM Scan (12/26/2024 12:00 AM CDT) 12/26/2024 us Provider Outside PROCEDURES Final Result * Pathology Result (12/26/2024 12:00 AM CDT) 12/26/2024 us Provider Outside LAB - [facility] ORDER WAN Final Result * Eye Exam - HIM Scan (07/04/2021) RETINOPATHY UNKNOWN Narrative Shasta Chavez - 07/04/2021 Eye exam with ophthalmology on this date: 07-04-21 Leena Ratliff MA Abstract Quality Initiatives Patient Reported OTHER Edited Result - Final * (ABNORMAL) Basic metabolic panel (08/22/2019 7:12 AM CHIEF SERVICE DISPATCHER) Sodium 137 133 - 144 mmol/L 08/22/2019 7:37 AM [facility] Potassium 3.8 3.4 - 5.3 mmol/L 08/22/2019 7:37 AM [facility] Chloride 104 94 - 109 mmol/L 08/22/2019 7:37 AM [facility] Carbon Dioxide 28 20 - 32 mmol/L 08/22/2019 7:45 AM [facility] Anion Gap 5 3 - 14 mmol/L 08/22/2019 7:45 AM [facility] Glucose 184(H) 70 - 99 mg/dL 08/22/2019 7:45 AM [facility] Urea Nitrogen 8 7 - 30 mg/dL 08/22/2019 7:45 AM [facility] Creatinine 0.59 0.52 - 1.04 mg/dL 08/22/2019 7:45 AM [facility] GFR Estimate >90 >60 mL/min/{1. 73_m2} 08/22/2019 7:45 AM [facility] Comment: Non GFR Calc Starting 08/03/2018, serum creatinine based estimated GFR (eGFR) will be calculated using the Chronic Kidney Disease Epidemiology Collaboration (CKD-EPI) equation. GFR Estimate If Black >90 >60 mL/min/{1. 73_m2} 08/22/2019 7:45 AM [facility] Comment: GFR Calc Starting 08/03/2018, serum creatinine based estimated GFR (eGFR) will be calculated using the Chronic Kidney Disease Epidemiology Collaboration (CKD-EPI) equation. Calcium 9.3 8.5 - 10.1 mg/dL 08/22/2019 7:45 AM [facility] Blood specimen (specimen) 08/22/2019 7:12 AM CHIEF SERVICE DISPATCHER 08/22/2019 7:16 AM CHIEF SERVICE DISPATCHER us Cyndi Anderson MD LAB - BLOOD ORDERABLES Final R esult [facility] [address] [place] [address], [facility] [phone] * (ABNORMAL) Lipid panel reflex to direct LDL Fasting (06/27/2019 10:55 AM CHIEF SERVICE DISPATCHER) Cholesterol 226(H) <200 mg/dL 06/28/2019 8:31 AM [facility] Comment:Desirable: <200 mg/d l Triglycerides 205(H) <150 mg/dL 06/28/2019 8:31 AM [facility] Comment: Borderline high: 150-199 mg/dl High: 200-499 mg/dl Very high: >499 mg/dl Fasting specimen HDL Cholesterol 38(L) >49 mg/dL 9 8:37 AM [facility] LDL Cholesterol Calculated 147(H) <100 mg/dL 06/28/2019 8:37 AM [facility] Comment: Above desirable: 100-129 mg/dl Borderline High: 130-159 mg/dL High: 160-189 mg/dL Very high: >189 mg/dl Non HDL Cholesterol 188(H) <130 mg/dL 06/28/2019 8:37 AM [facility] Comment: Above Desirable: 130-159 mg/dl Borderline high: 160-189 mg/dl High: 190-219 mg/dl Very high: >219 mg/dl Blood specimen (specimen) 06/27/2019 10:55 AM CHIEF SERVICE DISPATCHER 06/27/2019 10:56 AM CHIEF SERVICE DISPATCHER us Carol Lambert MD LAB - BLOOD ORDERABLES Final Res ult [facility] [address] [place] [address] * (ABNORMAL) HEMOGLOBIN A1C (06/27/2019 10:55 AM CHIEF SERVICE DISPATCHER) Hemoglobin A1C 6.8(H) 0 - 5.6 % 06/27/2019 11:05 AM CHIEF SERVICE DISPATCHER [facility] Comment: Normal <5.7% Prediabetes 5.7-6.4% Diabetes 6.5% or higher - adopted from ADA consensus guidelines. Blood specimen (specimen) 06/27/2019 10:55 AM CHIEF SERVICE DISPATCHER 06/27/2019 10:56 AM CHIEF SERVICE DISPATCHER us Carol Lambert MD LAB - BLOOD ORDERABLES Final Res ult Performing Organization Address [facility] Co de Phone Number [facility] [address] [place] [address] * Albumin Random Urine Quantitative with Creat Ratio (12/15/2018 11:41 AM CDT) Creatinine Urine 126 mg/dL 12/16/2018 8:19 AM CDT [facility] Albumin Urine mg/L 16 mg/L 12/16/2018 9:55 AM CDT [facility] Albumin Urine mg/g Cr 12.30 0 - 25 mg/g Cr 12/16/2018 9:55 AM CDT [facility] Urine specimen (specimen) 12/15/2018 11:41 AM CDT 12/15/2018 11:42 AM CDT us Carol Lambert MD LAB - URINE ORDERABLES Final Res ult [facility] [address] [place] [address] [facility] [address] [address] [phone] * PAP Smear - HIM Patient Reported (08/17/2016) PAP Smear - HIM Patient Reported Negative EXTERNAL LAB 08/17/2016 Narrative EXTERNAL LAB - 08/17/2016 Patient Reported: Pap smear done on this date: 08/2016 (approximately), 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 us Patient Reported LABORATORY Final Result EXTERNAL LAB External Lab * FOOT EXAM (07/13/2015) Carol Whitney MD - 07/13/2015 Done, normal. us Carol Lambert MD PROCEDURES Final Result * HPV High Risk Types DNA Cervical (01/12/2015 9:40 AM CDT) HPV 16 DNA Negative [facility] HPV 18 DNA Negative [facility] Other HR HPV Negative [facility] Final Diagnosis This patient's sample is negative for HPV DNA. The [place] College [employer] Obstetricians and Gynecologists (ACOG) recommends [...] and its performance characteristics determined by the [facility], Molecular Diagnostics Laboratory. It has not been cleared or approved by the FDA. The laboratory is regulated under CLIA as qualified to perform high-complexity testing. This test is used for clinical purposes. It should not be regarded as investigational or for research. [facility] Specimen Description Cervical Cells [id number] [facility] 01/12/2015 9:40 AM CDT 01/12/2015 9:50 AM CDT us Carol Lambert MD LAB - BLOOD ORDERABLES Final Res ult [facility] [address] [place] [address] * HIV-1/HIV-2, SCREEN (08/01/2002 12:27 PM CHIEF SERVICE DISPATCHER) HIV 1&2 Antibody Negative NEG [facility] 08/01/2002 12:2 7 PM CHIEF SERVICE DISPATCHER 08/01/2002 12:32 PM CHIEF SERVICE DISPATCHER us Enrique Garcia MD LABORATORY Final Result Performing Organization Address City/[facility]/ZIP Co de Phone Number [address] [address] from Last 3 Months or Most Recently Relevant to Health Maintenance Insurance [facility] * Guarantor: Concepción Ovalle Account Type Relation to Patient Date of Phone Billing Address Medication Therapy Self 1980 [address] [place] [address] Advance Directives For more information, please contact: [phone] * Full Code (Latest Code Status on File) Date Activated Date Inactivated Comments 02/28/2013 2:14 PM 11/07/2018 4:23 PM Care Teams Packing Machine Feeder Relationship Specialty [place] [address] [place] [address] PCP - General Family Practice 09/11/15 Clinic - [facility] [id number] [place] [address] Assigned PCP 03/08/25
--- OUTSIDE RECORDS SUMMARY | 2025-03-28 18:34 | XMS_ITS | Encounter Summary ---
Author Organization [facility] Address [address] [place] [address] Care Team Providers Care Elevator Examiner And Adjuster Name Role Phone Carol Lambert MD Primary Care Provider [phone] Carol Lambert MD Unavailable Rosario Ku [facility] Unavailable [phone] Carol Lambert MD Unavailable Clinic - [facility] Unavail able Encounter Details Date Type Department Care Team (Late st Contact Info) Description 04/04/2020 MyC Medical Advice [facility] [address] [place] [address] Rosario Ku, [facility] [address] [place] [address] Social History Tobacco Use Types [...] on file Legal Sex Female 3:21 AM SMALL ARMS ARTILLERY REPAIRER Gender Identity Female 02/27/2025 12:43 PM CDT Sexual Orientation Not on file 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 Not on file Not on file documented as of this encounter Plan of Treatment Upcoming Encounters Date Type Department Care Team (Late st Contact Info) Description 03/29/2025 3:00 PM CDT Appointment [facility] [address] [place] [address] Nicolás Gillis APRN ACCOUNT AUDITOR [address] [place] [address] 03/29/2025 3:30 PM CDT Appointment [facility] [address], [address] [place] [address] Nicolás Gillis APRN ACCOUNT AUDITOR [address] [place], [place] [id number] 05/01/2025 9:00 AM CDT Office Visit [facility] [address] [place] [address] Nicolás Gillis APRN ACCOUNT AUDITOR [address] [place] [address] [place] [address] [place], [place] [id number] documented as of this encounter Visit Diagnoses Not on filedocumented in this encounter Additional Health Concerns Infection Onset Date Last Indicated Resolved Time Rule Out COVID-19 05/10/2020 05/10/2020 05/11/2020 7:32 PM CDT Rule Out COVID-19 08/17/2020 08/17/2020 08/18/2020 1:01 PM SMALL ARMS ARTILLERY REPAIRER Assessment Noted Time PHQ-9 Depression Total Score: 0 12/15/19 20 2:03 PM CDT documented as of this encounter Care Teams Elevator Examiner And Adjuster Relationship Specialty [place] [address] [place] [address] PCP - General Family Practice 09/11/15 [place] [address] [place] [address] Assigned PCP 12/26/18 08/01/[address] [address] [place] [address] Pharmacist Pharmacist 01/11/19 10/10/20 [place] [address] [place] [address] Assigned PCP 10/11/22 12/26/22 [facility] [address] [place] [address] Assigned PCP 03/08/25 documented as of this encounter
--- OUTSIDE RECORDS SUMMARY | 2025-03-28 18:34 | XMS_ITS | Clinical Summary ---
Author Organization [facility] Address [address], [place] [address] Care Team Providers Care Rug Clipper Name Role Phone Unavailable Primary Care Provider Unavailabl e Source Comments You are receiving this document as you are listed as the primary care provider,follow-up provider, or the patient has been referred to you for consultation.This is in compliance with the Medicare and[employer] [employer] EHR Incentive Program,which states Providers who transition their patient to another setting of careor provider of care or refers their patient to another provider of care shouldprovide summary care record for each transition of care or referral. Supersonic Allergies Active Allergy Reactions Criticality Noted Date [...] Services) 1997 Adult Preventive Visit 1999 HepB Vaccine (1) 2000 COVID-19 Vaccine (4 - 2023-2 5 season) 2024 09/26/2021, 03/19/2021, 02/19/2021 Influenza Vaccine (#1) 2025 3, 06/17/2017, 07/13/2015 Pneumococcal Vaccine (3 of 3 - PCV) 2031 06/17/2017, 07/13/2015 Zoster/Shingles Vaccine (1 o f 2) 2031 DTaP/Tdap/Td Vaccine (3 - Tdap) 08/24/2032 08/24/2022, 04/05/2013, 07/22/2004 HPV Vaccine Aged Out No longer eligi ble based on patient's age to complete this topic HepA Vaccine Aged Out No longer eligi ble based on patient's age to complete this topic Hib Vaccine Aged Out No longer eligi ble based on patient's age to complete this topic IPV (Polio) Vaccine Aged Out No longe r eligible based on patient's age to complete this topic MCV4 Vaccine Aged Out No longer eligi ble based on patient's age to complete this topic Meningococcal B Vaccine Aged Out No l onger eligible based on patient's age to complete this topic
--- OUTSIDE RECORDS SUMMARY | 2025-03-28 18:34 | XMS_ITS | Encounter Summary ---
Author Organization [facility] Address [address] [place] [address]. [place] [address] Care Team Providers Care Wind Operations Supervisor Name Role Phone Carol Lambert MD Primary Care Provider [phone] Carol Lambert MD Unavailable Rosario Ku [facility] Unavailable [phone] Carlo Lambert MD Unavailable Clinic - [facility] Unavail able Encounter Details Date Type Department Care Team (Late st Contact Info) Description 10/03/2019 MyC Medical Advice [facility] [address] [place] [address] Carol Lambert [place] [id number] [place] [address] Social History Tobacco Use Types Packs/Day [...] on file Legal Sex Female 3:21 AM ATHLETIC AGENT Gender Identity Female 02/27/2025 12:43 PM CDT Sexual Orientation Not on file 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, [address] [place] [address] Nicolás Gillis APRN COUNTRY SINGER [address] [place] [address] 03/29/2025 3:30 PM CDT Appointment [facility] [address], [address] [place] [address] Nicolás Gillis APRN COUNTRY SINGER [address] [place] [address] 05/01/2025 9:00 AM CDT Office Visit [facility] [address] [place] [address] Nicolás Gillis APRN COUNTRY SINGER [address] [place] [address] [place] [address] [place] [address] documented as of this encounter Visit Diagnoses Not on filedocumented in this encounter Additional Health Concerns Infection Onset Date Last Indicated Resolved Time Rule Out COVID-19 05/10/2020 05/10/2020 05/11/2020 7:32 PM CDT Rule Out COVID-19 08/17/2020 08/17/2020 08/18/2020 1:01 PM ATHLETIC AGENT Assessment Noted Time PHQ-9 Depression Total Score: 0 06/28/20 19 7:04 AM ATHLETIC AGENT documented as of this encounter Care Teams Wind Operations Supervisor Relationship Specialty [place] [address] [place] [address] PCP - General Family Practice 09/11/15 [place] [address] [place], [place] [id number] Assigned PCP 12/26/18 08/01/22 Rosario Ku, [facility] [address] [place] [address] Pharmacist Pharmacist 01/11/19 10/10/20 [place] [address] [place] [address] Assigned PCP 10/11/22 12/26/22 Clinic - [facility] [address] [place], [place] [id number] Assigned PCP 03/08/25 documented as of this encounter
--- OUTSIDE RECORDS SUMMARY | 2025-03-28 18:34 | XMS_ITS | Encounter Summary ---
Author Organization [facility] Address [address] [place] [address] Care Team Providers Care Hog Pusher Name Role Phone Xiang Moreno MD Primary Care Provider [phone] Dedrick Frazier Primary Care Provider Carol Lambert MD Primary Care Provider Carol Lambert MD Unavailable Richie Palm MD Unavailable Carol Salmon MD Unavailable Varsha Thompson MD Unavailable + Carol Lambert MD Unavailable Rosario Ku [facility] Unavailable [phone] Carol Lambert MD Unavailable [facility] Unavail able Encounter Details Date Type Department Care Team (Late st Contact Info) Description 07/03/[address] [address] Jackie Hernandez MD NO INFO FOUND XXX, CHANDNI [address] ER ENC 07/03/02 (Primary Dx) Social History [...] on file Legal Sex Female 3:21 AM CLINICAL EXERCISE PHYSIOLOGIST Gender Identity Female 02/27/2025 12:43 PM CDT Sexual Orientation Not on file 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 Cough. HISTORY OF [...] have an ultrasound early in the w [facility] showed a living intrauterine . She [...] week intrauterine . Nik TOLENTINO MD [place]: [facility] Document: [id number] ALFREDO RVIEW [place], [place] Name: CONCEPCIÓN DUMONT EMERGENCY ROOM ENCOUNTER Page 2 of 2 LCN: ER DSC: 07/03/2002 [place], [place] Name: [place] DUMONT MR#: : Admit Date: 5391-08-05-18 1980 07/03/2002 Doctor: Nik TOLENTINO MD [facility] ROOM ENCOUNTER Page 1 of 2 Electronically filed by Bhavya Parrish 07/12/2002 2:11 PM documented in this encounter Plan of Treatment Upcoming Encounters Date Type Department Care Team (Late st Contact Info) Description 03/29/2025 3:00 PM CDT Appointment [facility] [address], [address] [place] [address] Nicolás Gillis APRN OPERATING ROOM RN [id number] [place] [address] 03/29/2025 3:30 PM CDT Appointment [facility] [address] [facility] [facility], [address] [place] [address] Nicolás Gillis APRN [facility] [address] [place] [address] 05/01/2025 9:00 AM CDT Office Visit [address] [address] Nicolás Gillis APRN [facility] [address] [place] [address] Carol Lambert [place] [id number] [place] [address] documented as of this encounter Visit Diagnoses Diagnosis ER ENC 07/03/02- Primary documented in this encounter Additional Health Concerns Infection Onset Date Last Indicated Resolved Time Rule Out COVID-19 05/10/2020 05/10/2020 05/11/2020 7:32 PM CDT Rule Out COVID-19 08/17/2020 08/17/2020 08/18/2020 1:01 PM CLINICAL EXERCISE PHYSIOLOGIST documented as of this encounter Care Teams Hog Pusher Relationship Specialty Start Date End Date Xiang Moreno MD [address] [address] PCP - General 10/01/01 02/27/13 Dedrick Frazier [address] [address] PCP - General 02/28/13 09/10/15 [place] [address] [place], [place] [id number] PCP - General Family Practice 09/11/15 [place] [address] [place] [address] PCP - Assigned PCP 01/21/15 10/19/18 Richie Palm MD Assigned PCP 10/17/18 11/06/18 [place] [address] [place] [address] Assigned PCP 12/21/14 10/16/18 Varsha Thompson MD [address] [address] Assigned PCP 11/07/18 12/25/18 [place] [address] [place] [address] Assigned PCP 12/26/18 08/01/22 [facility] [address] [place] [address] Pharmacist Pharmacist 01/11/19 10/10/20 [place] [address] [place], [place] [id number] Assigned PCP 10/11/22 12/26/22 [facility] [address] [place] [address] Assigned PCP 03/08/25 documented as of this encounter
--- OUTSIDE RECORDS SUMMARY | 2025-03-28 18:35 | XMS_ITS | Clinical Summary ---
Author Organization [facility] Address [address] [place] [address] Care Team Providers Care Snow Plow Tractor Operator Name Role Phone Chalo Grier MD Primary [...] on file Legal Sex Female 6:26 AM COMPLIANCE CLERK Gender Identity Not on file Sexual Orientation Not on file Obstetrics History Last Filed Vital Signs Vital Sign Reading Time Taken Comments Blood Pressure 147/86 10/06/2022 5:01 PM COMPLIANCE CLERK Pulse 91 10/06/2022 5:01 PM COMPLIANCE CLERK Temperature 36.8 C (98.2 F) 10/06/2022 5:01 PM COMPLIANCE CLERK Respiratory Rate 18 10/06/2022 5:01 PM COMPLIANCE CLERK Oxygen Saturation 99% 10/06/2022 5:01 PM COMPLIANCE CLERK Inhaled Oxygen Concentration - - Weight 82.6 kg (182 lb) 10/06/2022 5:01 PM COMPLIANCE CLERK Height 157.5 cm (5' 2) 10/06/2022 5:01 PM COMPLIANCE CLERK Body Mass Index 33.29 10/06/2022 5:01 PM COMPLIANCE CLERK Plan of Treatment Health Maintenance Due Date Last Done Comments Tetanus booster 1992 Depression screening for age 12+ 1993 HIV for age 15-65 1996 BMI (ht and wt on same day) for age 18+ 1999 Hepatitis C screening for ag e 18-79 1999 Hepatitis B series for 19+ ( 1 of 3 - 19+ 3-dose series) 2000 Pap test for age 21-65 10/10/2014 2, 03/09/2009, 02/22/2009 COVID-19 vaccine series ( - 2023- season) 2024 Influenza Vaccine (#1) 2025 Pneumococcal series for age 6-49 Aged Out No longer eligible b ased on patient's age to complete this topic Procedures Procedure Name Priority Date/Time Associated Diagnosis Comments GYNECOLOGICAL PANEL Timed 10/10/2011 8 :30 AM COMPLIANCE CLERK from Last 3 Months or Most Recently Relevant to Health Maintenance Results * GYNECOLOGICAL PANEL (10/10/2011 8:30 AM COMPLIANCE CLERK) CYTOLOGY CYTOPATHOLOGY REPORT [facility] Status: Final Status [id number] CLINICAL INFORMATION Last Date of LMP :09/22/11 Last Pap Date :?2009 Last Pap Result :NORMAL [place]/Bx done today :No HPV Request :HPV if [...] malignant lesions. COLLECTED:10/10/11 ACCESSIONED: 10/13/11 SIGNED: 10/15/11 [facility] [place] CODE NIL [facility] 10/10/2011 8:30 AM COMPLIANCE CLERK 10/13/2011 8:30 AM COMPLIANCE CLERK us Win FLOOD PATHOLOGY/CYTOLOGY Final Result [facility] INTERNAL ZIP [address] [address] from Last 3 Months or Most Recently Relevant to Health Maintenance Insurance [employer] [facility] MISBAH RUDOLPH Care Teams Snow Plow Tractor Operator Relationship Specialty Start Date End Date Chalo Grier MD PCP - General 05/12/08
--- OUTSIDE RECORDS SUMMARY | 2025-03-28 18:35 | XMS_ITS | Encounter Summary ---
Author Organization [facility] Address [address] [place] [address] Care Team Providers Care Supervisor Fiberglass Boat Assembly Name Role Phone Carol Lambert MD Primary Care Provider [phone] Carol Lambert MD Unavailable Richie Palm MD Unavailable [facility] Carol Davis MD Unavailable Varsha hTompson MD Unavailable + Carol Labmert MD Unavailable Rosario Ku [facility] Unavailable [phone] Carol Lambert MD Unavailable [facility] Unavail able Encounter Details Date Type Department Care Team (Late st Contact Info) Description 02/26/2018 [facility] Medical Advice [address] [address] Haritha Barfield, RETAIL SERVICES PROFESSIONAL Social History Tobacco Use Types Packs/Day Years Used Date Smoking Tobacco: Every Day Cigarettes 0.5 4 Smokeless Tobacco: Never Alcohol Use Standard Drinks/Week Comments Yes 0 (1 standard drink = 0.6 oz pur e alcohol) occ Comments No Sex and Gender Information Value Date Recorded Sex Assigned at Not on file Legal Sex Female 3:21 AM GEM SETTER Gender Identity Female 02/27/2025 12:43 PM CDT Sexual Orientation Not on file 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 Not on file Not on file documented as of this encounter Plan of Treatment Upcoming Encounters Date Type Department Care Team (Late st Contact Info) Description 03/29/2025 3:00 PM CDT Appointment [facility] [address] [facility], [address] [place] [address] Nicolás Gillis APRN DISTRICT MEDICAL EXAMINER [address] [place] [address] 03/29/2025 3:30 PM CDT Appointment [facility] [address] [facility] [address], [address] [place] [address] Nicolás Gillis APRN DISTRICT MEDICAL EXAMINER [address] [place] [address] 05/01/2025 9:00 AM CDT Office Visit [facility] [address] [place] [address] Nicolás Gillis APRN DISTRICT MEDICAL EXAMINER [address] [place] [address] [place] [address] [place] [address] documented as of this encounter Visit Diagnoses Not on filedocumented in this encounter Additional Health Concerns Infection Onset Date Last Indicated Resolved Time Rule Out COVID-19 05/10/2020 05/10/2020 05/11/2020 7:32 PM CDT Rule Out COVID-19 08/17/2020 08/17/2020 08/18/2020 1:01 PM GEM SETTER Assessment Noted Time PHQ-9 Depression Total Score: 0 09/09/19 18 11:37 AM GEM SETTER documented as of this encounter Care Teams Supervisor [employer] Boat [employer] Relationship Specialty [place] [address] [place] [address] PCP - General Family Practice 09/11/15 [place] [address] [place] [address] PCP - Assigned PCP 01/21/15 10/19/18 Richie Palm MD Assigned PCP 10/17/18 11/06/18 [place] [address] [place] [address] Assigned PCP 12/21/14 10/16/18 Varsha Thompson MD [place] [address] [address] Assigned PCP 11/07/18 12/25/18 [place] [address] [place] [address] Assigned PCP 12/26/18 08/01/22 [facility] [address] [place] [address] Pharmacist Pharmacist 01/11/19 10/10/20 [place] [address] [place] [address] Assigned PCP 10/11/22 12/26/22 [facility] [address] [place] [address] Assigned PCP 03/08/25 documented as of this encounter
--- OUTSIDE RECORDS SUMMARY | 2025-03-28 18:35 | XMS_ITS | Encounter Summary ---
Author Organization [facility] Address [address] [place] [address] Care Team Providers Care Assistant Import Manager Name Role Phone Xiang Moreno MD Primary Care Provider [phone] Dedrick Frazier Primary Care Provider [phone] Carol Lambert MD Primary Care Provider Carol Lambert MD Unavailable Richie Palm MD Unavailable Carol Salmon MD Unavailable Varsha Thompson MD Unavailable + Carol Lambert MD Unavailable Rosario Ku [facility] Unavailable Carol Lambert MD Unavailable Clinic - [facility] Unavail able Encounter Details Date Type Department Care Team (Late st Contact Info) Description 10/17/2008 Office Visit-[facility] [address] [place] [address] Unknown, Doctor, Social History Tobacco Use Types Packs/Day Years Used Date Smoking Tobacco: Every Day Cigarettes 0.1 4 Comments:pt smoking approx 2 cigs per day Alcohol Use Standard Drinks/Week Comments No 0 (1 standard drink = 0.6 oz pur e alcohol) Comments No Sex and Gender Information Value Date Recorded Sex Assigned at Not on file Legal Sex Female 3:21 AM CERTIFIED SOLID WASTE FACILITY OPERATOR Gender Identity Female 02/27/2025 12:43 PM CDT Sexual Orientation Not on file 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 - Tachycardia, 785.0 ALLERGIES NKA MEDICATIONS (prior to changes made today) 1. Albuterol Sulfate 90 mcg/inhaler, Take as Directed CHIEF COMPLAINTS fu echo, event monitor, stress ekg HISTORY OF PRESENT ILLNESS Ms. Ovalle is a delightful 28-year-old female who presents to the [facility] today for a follow-up visit [...] Info) Description 03/29/2025 3:00 PM CDT Appointment [facility] [address], [address] [place] [address] Nicolás Gillis APRN CRANIOLOGIST [address] [place] [address] 03/29/2025 3:30 PM CDT Appointment [facility] [address], [address] [place] [address] Nicolás Gillis APRN CRANIOLOGIST [address] [place], [place] [phone] 05/01/2025 9:00 AM CDT Office Visit [facility] [address] [place] [address] Nicolás Gillis APRN CRANIOLOGIST [address] [place] [address] [place] [address] [place], [place] [phone] documented as of this encounter Visit Diagnoses Not on filedocumented in this encounter Additional Health Concerns Infection Onset Date Last Indicated Resolved Time Rule Out COVID-19 05/10/2020 05/10/2020 05/11/2020 7:32 PM CDT Rule Out COVID-19 08/17/2020 08/17/2020 08/18/2020 1:01 PM CERTIFIED SOLID WASTE FACILITY OPERATOR documented as of this encounter Care Teams Assistant Import Manager Relationship Specialty Start Date End Date Xiang Moreno MD [address] [place] [address] PCP - General 10/01/01 02/27/13 Dedrick Frazier [address] [address] PCP - General 02/28/13 09/10/15 [place] [address] [place] [address] PCP - General Family Practice 09/11/15 [place] [address] [place] [address] PCP - Assigned PCP 01/21/15 10/19/18 Richie Palm MD Assigned PCP 10/17/18 11/06/18 [place] [address] [place] [address] Assigned PCP 12/21/14 10/16/18 Varsha Thompson MD [place] [address] [address] Assigned PCP 11/07/18 12/25/18 [place] [address] [place] [address] Assigned PCP 12/26/18 08/01/22 [facility] [address] [place] [address] Pharmacist Pharmacist 01/11/19 10/10/20 [place] [address] [place] [address] Assigned PCP 10/11/22 12/26/22 [facility] [address] [place] [address] Assigned PCP 03/08/25 documented as of this encounter
--- OUTSIDE RECORDS SUMMARY | 2025-03-28 18:35 | XMS_ITS | Encounter Summary ---
Author Organization [facility] Address [address] [place] [address] Care Team Providers Care Core Rescuer Name Role Phone Xiang Moreno MD Primary Care Provider [phone]- [phone] Dedrick Frazier Primary Care Provider [phone] Carol Lambert MD Primary Care Provider Carol Lambert MD Unavailable Richie Palm MD Unavailable Carol Salmon MD Unavailable Varsha Thompson MD Unavailable + Carol Lambert MD Unavailable Rosario Ku [facility] Unavailable Carol Lambert MD Unavailable Clinic - [facility] Unavail able Encounter Details Date Type Department Care Team (Late st Contact Info) Description 09/19/2008 Office Visit-[facility] [address] [place] [address] Unknown, Doctor, Social History Tobacco Use Types Packs/Day Years Used Date Smoking Tobacco: Every Day Cigarettes 0.1 4 Comments:pt smoking approx 2 cigs per day Alcohol Use Standard Drinks/Week Comments No 0 (1 standard drink = 0.6 oz pur e alcohol) Comments No Sex and Gender Information Value Date Recorded Sex Assigned at Not on file Legal Sex Female 3:21 AM REAL ESTATE MANAGER Gender Identity Female 02/27/2025 12:43 PM CDT Sexual Orientation Not on file 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 She herself feels fine. She doesn't feel any dizziness or light-headedness during the exercise. Sometimes she has some pressure when she is pushing herself and some left heaviness but otherwise feels fine. She did have some investigation in the past when she was 15when she was in [place] but then when she came back here [...] Return Visit 3 weeks Nabeel Levy M.D. Electronically signed by [facility], [facility] Data Conversion at 12/29/2013 10:34 PM CDT documented in this encounter Plan of Treatment Upcoming Encounters Date Type Department Care Team (Late st Contact Info) Description 03/29/2025 3:[address] [facility] [address] [facility] [place] [address] Nicolás Gillis APRN WELDER FITTER [address] [place] [address] 03/29/2025 3:[address] [facility] [address] [facility] [place] [address] Nicolás Gillis APRN WELDER FITTER [address] [place] [address] 05/01/2025 9:00 AM CDT Office Visit [facility] [address] [place] [phone] Elis Nicolás QUALITY CONTROL AUDITOR WELDER FITTER [address] [place] [address] [place] [address] [place] [address] documented as of this encounter Visit Diagnoses Not on filedocumented in this encounter Additional Health Concerns Infection Onset Date Last Indicated Resolved Time Rule Out COVID-19 05/10/2020 05/10/2020 05/11/2020 7:32 PM CDT Rule Out COVID-19 08/17/2020 08/17/2020 08/18/2020 1:01 PM REAL ESTATE MANAGER documented as of this encounter Care Teams Core Rescuer Relationship Specialty Start Date End Date Xiang Moreno MD [address] [address] PCP - General 10/01/01 02/27/13 Dedrick Frazier [address] [address] PCP - General 02/28/13 09/10/15 [place] [address] [place] [address] PCP - General Family Practice 09/11/15 [place] [address] [place] [address] PCP - Assigned PCP 01/21/15 10/19/18 Richie Palm MD Assigned PCP 10/17/18 11/06/18 [place] [address] [place] [address] Assigned PCP 12/21/14 10/16/18 Varsha Thompson MD [facility] [address] [place] [address] Assigned PCP 11/07/18 12/25/18 [place] [address] [place] [address] Assigned PCP 12/26/18 08/01/22 [facility] [address] [place] [address] Pharmacist Pharmacist 01/11/19 10/10/20 [place] [address] [place] [address] Assigned PCP 10/11/22 12/26/22 [facility] [address] [place] [address] Assigned PCP 03/08/25 documented as of this encounter
== END 2025-03-28 20:08 | disposition home or self-care (01) ==
PROVIDERS: Emergency Provider Student in an Organized Health Care Education/Training Program; PCP Physician Assistant Medical
DX: T63.461A Toxic effect of venom of wasps, accidental (unintentional), initial encounter (principal); T78.2XXA Anaphylactic shock, unspecified, initial encounter
CPT/HCPCS: 99283; A9270

== ENCOUNTER 2025-06-19 14:10 | Outpatient (CLI) | payer BC, SELFPAY | END 2025-06-19 14:11 | disposition home or self-care (01) | LOC: NFLDREF 06-22 14:19 | PROVIDERS: PCP Physician Assistant Medical; Referring Provider Physician Assistant Medical; Visit Provider Physician Assistant Medical | DX: E78.5 Hyperlipidemia, unspecified (principal); E11.9 Type 2 diabetes mellitus without complications; N18.1 Chronic kidney disease, stage 1 | CPT/HCPCS: 80053; 80061; 82043; 82570; 84443 ==